=== PATIENT | male | born 1945 | race Caucasian/White ===

== ENCOUNTER 2017-10-26 10:17 | Inpatient (IN) | payer MEDICARE, BC ==
[2017-10-26] MEDS ORDERED: Sodium Chloride 0.9% 2.5 ML Syringe FLUSH PRN (10:38)
[2017-10-26] MEDS ORDERED: Sodium Chloride 0.9% 10 ML Syringe FLUSH PRN (10:38)
--- NOTE | 2017-10-26 10:38 | EDM.PDOC ---
ED HPI GENERAL MEDICAL PROBLEM - General Stated Complaint: OPEN AREAS TO FEET Time Seen by Provider: 10/26/17 10:22 Source of Information: Reports: Patient History Limitations: Reports: No Limitations - History of Present Illness INITIAL COMMENTS - FREE TEXT/NARRATIVE: History of present illness: []Patient states that he's had a 5 day history of worsening leg swelling. He is a diabetic has chronic leg lesions but states he was recently exposed to black mold and dirty water after his toilet overflowed. He also noted about 3 weeks ago that his well water tasted different so he's been drinking bottled water but has been showering with his well water and started breaking out in a rash all over his body. Review of systems: As per history of present illness and below otherwise all systems reviewed and negative. Past medical history: As per history of present illness and as reviewed below otherwise noncontributory. Surgical history: As per history of present illness and as reviewed below otherwise noncontributory. Social history: No reported history of drug or alcohol abuse. Family history: As per history of present illness and as reviewed below otherwise noncontributory. Physical exam: General: Well developed, well nourished in NAD HEENT: Atraumatic, normocephalic, pupils reactive, negative for conjunctival pallor or scleral icterus, mucous membranes moist, throat clear, neck supple, nontender, trachea midline. Lungs: Clear to auscultation, breath sounds equal bilaterally, chest nontender. Heart: S1S2, regular, negative for clicks, rubs, or JVD. Abdomen: Soft, nondistended, nontender. Negative for masses or hepatosplenomegaly. Negative for costovertebral tenderness. Pelvis: Stable nontender. Genitourinary: Deferred. Rectal: Deferred. Extremities: Chronic thickened skin with bright erythema on both calves with multiple areas of open lesions on his feet. There is 10 cm x 10 cm round blister with a large amount of serous fluid on the right anterior leg. negative for cords or calf pain. Neurovascular unremarkable. Patient has knee replacement on the right Neuro: Awake, alert, oriented. Cranial nerves II through XII unremarkable. Cerebellum unremarkable. Motor and sensory unremarkable throughout. Exam nonfocal. Diagnostics: []labs-normal Therapeutics: []iv abx Impression: []Diabetic foot ulcers, scabies Plan: []admit Definitive disposition and diagnosis as appropriate pending reevaluation and review of above. Lower Legs/Feet Pain Score (Numeric/FACES): 7 Bilateral Lower Back Pain Score (Numeric/FACES): 5 - Related Data Allergies Allergy/AdvReac Type Severity Reaction Status Date / Time Penicillins Allergy Rash Verified 10/26/17 10:35 Home Meds: Home Meds Insulin Aspart [NovoLOG] 100 unit SUBCUT BIDAC 10/26/17 [History] Insulin Glarg,Human.Rec.Analog [LantUS Solostar] 100 units SUBCUT DAILY [History] Review of Systems - Review of Systems Review Of Systems: See Below (See history of present illness) ED EXAM, GENERAL - Physical Exam Exam: See Below (See history of present illness) Course - Vital Signs Last Recorded V/S: Last Vital Signs Temp 96.5 F 10/27/17 04:00 Pulse 50 L 10/27/17 04:00 Resp 18 10/27/17 04:00 BP 129/52 L 10/27/17 04:00 Pulse Ox 92 L 10/27/17 04:00 - Orders/Labs/Meds Orders: Active Orders 24 hr Category Date Time Status Venous Doppler Lwr Ext Lt [US] Stat Exams 10/26/17 11:21 Taken Venous Doppler Lwr Ext Rt [US] Stat Exams 10/26/17 11:21 Taken CULTURE BLOOD [BC] Stat Lab 10/26/17 11:03 Results CULTURE BLOOD [BC] Stat Lab 10/26/17 11:45 Received Sodium Chloride 0.9% [Saline Flush] Med 10/26/17 10:38 Active 10 ml FLUSH ASDIRECTED PRN Sodium Chloride 0.9% [Saline Flush] Med 10/26/17 10:38 Active 2.5 ml FLUSH ASDIRECTED PRN Blood Culture x2 Reflex Set [OM.PC] Stat Oth 10/26/17 10:39 Ordered Saline Lock Insert [OM.PC] Stat Oth 10/26/17 10:39 Ordered Medication Orders Acetaminophen (Tylenol) 650 mg PO Q4H PRN PRN Reason: Pain (Mild 1-3)/fever Hydrocodone Bitart/Acetaminophen ([place] 325-5 Mg) 2 tab PO Q4H PRN PRN Reason: Pain (moderate 4-6) Last Admin: 10/27/17 03:19 Dose: 2 tab Admin: 10/26/17 21:02 Dose: 2 tab Admin: 10/26/17 15:51 Dose: 2 tab Diphenhydramine HCl (Benadryl) 25 mg IVPUSH Q6H PRN PRN Reason: Itching Last Admin: 10/27/17 03:20 Dose: 25 mg Admin: 10/26/17 18:13 Dose: 25 mg Vancomycin HCl 1,750 mg/ (Sodium Chloride) 500 mls @ 250 mls/hr IV Q12H [facility] Last Admin: 10/27/17 03:27 Dose: 250 mls/hr Infusion: 10/26/17 17:52 Dose: 250 mls/hr Admin: 10/26/17 15:52 Dose: 250 mls/hr Insulin Aspart (Novolog) 0 unit SUBCUT TIDAC [facility] PRN Reason: Protocol Last Admin: 10/26/17 16:11 Dose: Morphine Sulfate (Morphine) 2 mg IVPUSH Q2H PRN PRN Reason: Pain (severe 7-10) Last Admin: 10/27/17 00:43 Dose: 2 mg Admin: 10/26/17 18:14 Dose: 2 mg Permethrin 5% Cram (Own Med) 1 each TOP Q2D [facility] Last Admin: 10/26/17 20:48 Dose: 1 each Ivermectin 3mg Own (Med) 30,000 each PO ONETIME ONE Stop: 11/02/17 19:01 Ondansetron HCl (Zofran Odt) 4 mg PO Q4H PRN PRN Reason: nausea, able to take PO Ondansetron HCl (Zofran) 4 mg IVPUSH Q4H PRN PRN Reason: Nausea Sodium Chloride (Saline Flush) 10 ml FLUSH ASDIRECTED PRN PRN Reason: Keep Vein Open Last Admin: 10/26/17 11:59 Dose: 10 ml Sodium Chloride (Saline Flush) 2.5 ml FLUSH ASDIRECTED PRN PRN Reason: Keep Vein Open Last Admin: 10/26/17 11:59 Dose: 2.5 ml Vancomycin HCl (Pharmacy To Dose - Vancomycin) 1 dose .XX ASDIRECTED [facility] Labs: Laboratory Tests 10/26/17 10/26/17 10/26/17 Range/Units 11:03 11:03 11:03 WBC 8.39 (4.0-11.0) K/uL RBC 5.60 (4.50-5.90) M/uL Hgb 13.9 (13.0-17.0) g/dL Hct 43.8 (38.0-50.0) % MCV 78.2 L (80.0-98.0) fL MCH 24.8 L (27.0-32.0) pg MCHC 31.7 (31.0-37.0) g/dL RDW Std Deviation 52.0 (28.0-62.0) fl RDW Coeff of Lb 18 H (11.0-15.0) % Plt Count 38 L (150-400) K/uL Neut % (Auto) 61.6 (48.0-80.0) % Lymph % (Auto) 13.8 L (16.0-40.0) % Andrews % (Auto) 9.8 (0.0-15.0) % Eos % (Auto) 14.1 H (0.0-7.0) % Baso % (Auto) 0.7 (0.0-1.5) % Neut # (Auto) 5.2 (1.4-5.7) K/uL Lymph # (Auto) 1.2 (0.6-2.4) K/uL Andrews # (Auto) 0.8 (0.0-0.8) K/uL Eos # (Auto) 1.2 H (0.0-0.7) K/uL Baso # (Auto) 0.1 (0.0-0.1) K/uL Nucleated RBC % 0.0 /100WBC Nucleated RBCs # 0 K/uL Lactate 1.2 (0.20-2.00) mmol/L Sodium 141 (136-146) mmol/L Potassium 4.4 (3.5-5.1) mmol/L Chloride 107 (98-110) mmol/L Carbon Dioxide 24 (21-31) mmol/L BUN 25 H (6.0-23.0) mg/dL Creatinine 1.3 (0.6-1.5) mg/dL Est Cr Clr Drug Dosing 63.99 mL/min Estimated GFR (MDRD) 54.4 ml/min Glucose 153 H (60-110) mg/dL Hemoglobin A1c (0.0-6.0) % Calcium 9.6 (8.8-10.8) mg/dL Total Bilirubin 0.5 (0.1-1.5) mg/dL AST 22 (5-40) IU/L ALT 22 (8-54) IU/L Alkaline Phosphatase 70 (40-150) B-Natriuretic Peptide (<100) PG/ML Total Protein 7.5 (6.0-8.0) g/dL Albumin 3.9 (3.4-4.8) g/dL Globulin 3.6 H (2.0-3.5) g/dL Albumin/Globulin Ratio 1.1 L (1.3-2.8) Triglycerides (10-190) mg/dL Cholesterol (131-240) mg/dL LDL Cholesterol, Calc (60-180) mg/dL VLDL Cholesterol (5-55) mg/dL HDL Cholesterol (40-80) mg/dL Cholesterol/HDL Ratio (3.3-6.0) 10/26/17 10/26/17 10/26/17 Range/Units 11:03 11:03 11:03 WBC (4.0-11.0) K/uL RBC (4.50-5.90) M/uL Hgb (13.0-17.0) g/dL Hct (38.0-50.0) % MCV (80.0-98.0) fL MCH (27.0-32.0) pg MCHC (31.0-37.0) g/dL RDW Std Deviation (28.0-62.0) fl RDW Coeff of Lb (11.0-15.0) % Plt Count (150-400) K/uL Neut % (Auto) (48.0-80.0) % Lymph % (Auto) (16.0-40.0) % Andrews % (Auto) (0.0-15.0) % Eos % (Auto) (0.0-7.0) % Baso % (Auto) (0.0-1.5) % Neut # (Auto) (1.4-5.7) K/uL Lymph # (Auto) (0.6-2.4) K/uL Andrews # (Auto) (0.0-0.8) K/uL Eos # (Auto) (0.0-0.7) K/uL Baso # (Auto) (0.0-0.1) K/uL Nucleated RBC % /100WBC Nucleated RBCs # K/uL Lactate (0.20-2.00) mmol/L Sodium (136-146) mmol/L Potassium (3.5-5.1) mmol/L Chloride (98-110) mmol/L Carbon Dioxide (21-31) mmol/L BUN (6.0-23.0) mg/dL Creatinine (0.6-1.5) mg/dL Est Cr Clr Drug Dosing mL/min Estimated GFR (MDRD) ml/min Glucose (60-110) mg/dL Hemoglobin A1c 8.6 H (0.0-6.0) % Calcium (8.8-10.8) mg/dL Total Bilirubin (0.1-1.5) mg/dL AST (5-40) IU/L ALT (8-54) IU/L Alkaline Phosphatase (40-150) B-Natriuretic Peptide 99 (<100) PG/ML Total Protein (6.0-8.0) g/dL Albumin (3.4-4.8) g/dL Globulin (2.0-3.5) g/dL Albumin/Globulin Ratio (1.3-2.8) Triglycerides 210 H (10-190) mg/dL Cholesterol 167 (131-240) mg/dL LDL Cholesterol, Calc 95 (60-180) mg/dL VLDL Cholesterol 42 (5-55) mg/dL HDL Cholesterol 30 L (40-80) mg/dL Cholesterol/HDL Ratio 5.6 (3.3-6.0) Meds: Medications Generic Name Dose Route Start Last Admin Trade Name Freq PRN Reason Stop Dose Admin Acetaminophen 650 mg 10/26/17 14:13 Tylenol PO Q4H PRN Pain (Mild 1-3)/fever Hydrocodone Bitart/Acetaminophen 2 tab 10/26/17 14:13 10/27/17 03:19 [place] 325-5 Mg PO 2 tab Q4H PRN Administration Pain (moderate 4-6) Diphenhydramine HCl 25 mg 10/26/17 16:05 10/27/17 03:20 Benadryl IVPUSH 25 mg Q6H PRN Administration Itching Vancomycin HCl 1,750 mg/ 500 mls @ 250 mls/hr 10/26/17 16:00 10/27/17 03:27 Sodium Chloride IV 250 mls/hr Q12H [facility] Administration Insulin Aspart 0 unit 10/26/17 17:00 10/26/17 16:11 Novolog SUBCUT Not Given TIDAC [facility] Protocol Morphine Sulfate 2 mg 10/26/17 14:26 10/27/17 00:43 Morphine IVPUSH 2 mg Q2H PRN Administration Pain (severe 7-10) Permethrin 5% Cram 1 each 10/26/17 20:00 10/26/17 20:48 Own Med TOP 1 each Q2D [facility] Administration Ivermectin 3mg Own 30,000 each 11/02/17 19:00 Med PO 11/02/17 19:01 ONETIME ONE Ondansetron HCl 4 mg 10/26/17 14:13 Zofran Odt PO Q4H PRN nausea, able to take PO Ondansetron HCl 4 mg 10/26/17 14:13 Zofran IVPUSH Q4H PRN Nausea Sodium Chloride 10 ml 10/26/17 10:38 10/26/17 11:59 Saline Flush FLUSH 10 ml ASDIRECTED PRN Administration Keep Vein Open Sodium Chloride 2.5 ml 10/26/17 10:38 10/26/17 11:59 Saline Flush FLUSH 2.5 ml ASDIRECTED PRN Administration Keep Vein Open Vancomycin HCl 1 dose 10/26/17 14:15 Pharmacy To Dose - Vancomycin .XX ASDIRECTED [facility] Discontinued Medications Generic Name Dose Route Start Last Admin Trade Name Freq PRN Reason Stop Dose Admin Enoxaparin Sodium 40 mg 10/26/17 16:00 10/26/17 15:59 Lovenox SUBCUT 40 mg Q24H [facility] Administration Heparin Sodium (Porcine) 5,000 units 10/26/17 14:15 10/26/17 18:18 Heparin Sodium SUBCUT Not Given Q8H [facility] Ceftriaxone Sodium/Dextrose 1 50 mls @ 100 mls/hr 10/26/17 13:24 10/26/17 13: 35 gm/ Premix IV 10/26/17 13:53 100 mls/hr ONETIME ONE Administration Morphine Sulfate 4 mg 10/26/17 13:09 10/26/17 13:34 Morphine IVPUSH 10/26/17 13:10 4 mg ONETIME ONE Administration Morphine Sulfate 2 mg 10/26/17 14:13 Morphine IVPUSH 10/27/17 14:15 Q2H PRN Pain (severe 7-10) Ivermectin 3mg Own 30,000 each 10/26/17 19:00 Med PO ONETIME [facility] Ivermectin 3mg Own 30,000 each 10/26/17 19:00 10/26/17 20:50 Med PO 10/26/17 19:01 30,000 each ONETIME ONE Administration Ivermectin 3mg Own 30,000 each 10/26/17 19:00 Med PO 10/26/17 19:01 ONETIME ONE Ondansetron HCl 4 mg 10/26/17 13:09 10/26/17 13:34 Zofran IVPUSH 10/26/17 13:10 4 mg ONETIME ONE Administration Departure - Departure Time of Disposition: 14:25 Disposition: Admitted As Inpatient 67 Condition: Good Clinical Impression: Scabies Diabetic foot ulcers Qualifiers: Diabetic foot ulcer location: unspecified part of foot Diabetes mellitus type: other specified (including SILVINA) Laterality: unspecified laterality Non- pressure ulcer stage: unspecified non-pressure ulcer stage Qualified Code(s): E13.621 - Other specified diabetes mellitus with foot ulcer; L97.509 - Non- pressure chronic ulcer of other part of unspecified foot with unspecified severity; L97.509 - Non-pressure chronic ulcer of other part of unspecified foot with unspecified severity; L97.509 - Non-pressure chronic ulcer of other part of unspecified foot with unspecified severity; L97.509 - Non-pressure chronic ulcer of other part of unspecified foot with unspecified severity - Discharge Information - My Orders Last 24 Hours: My Active Orders 10/26/17 10:38 Sodium Chloride 0.9% [Saline Flush] 10 ml FLUSH ASDIRECTED PRN Sodium Chloride 0.9% [Saline Flush] 2.5 ml FLUSH ASDIRECTED PRN 10/26/17 10:39 Blood Culture x2 Reflex Set [OM.PC] Stat Saline Lock Insert [OM.PC] Stat 10/26/17 11:03 CULTURE BLOOD [BC] Stat 10/26/17 11:21 Venous Doppler Lwr Ext Lt [US] Stat Venous Doppler Lwr Ext Rt [US] Stat 10/26/17 11:45 CULTURE BLOOD [BC] Stat - Assessment/Plan Last 24 Hours: My Active Orders 10/26/17 10:38 Sodium Chloride 0.9% [Saline Flush] 10 ml FLUSH ASDIRECTED PRN Sodium Chloride 0.9% [Saline Flush] 2.5 ml FLUSH ASDIRECTED PRN 10/26/17 10:39 Blood Culture x2 Reflex Set [OM.PC] Stat Saline Lock Insert [OM.PC] Stat 10/26/17 11:03 CULTURE BLOOD [BC] Stat 10/26/17 11:21 Venous Doppler Lwr Ext Lt [US] Stat Venous Doppler Lwr Ext Rt [US] Stat 10/26/17 11:45 CULTURE BLOOD [BC] Stat
[2017-10-26] MEDS ORDERED: Morphine 4 MG/ML Syringe IVPUSH ONE (13:09)
[2017-10-26] MEDS ORDERED: Ondansetron 4 MG/2 ML SDV IVPUSH ONE (13:09)
[2017-10-26] MEDS ORDERED: cefTRIAXone 1 GM in Premix Bag 1 BAG IV ONE (13:24)
[2017-10-26] MEDS ORDERED: Acetaminophen 325 MG Tab PO PRN (14:13)
[2017-10-26] MEDS ORDERED: Morphine 10 MG/ML Syringe IVPUSH PRN (14:13)
[2017-10-26] MEDS ORDERED: Ondansetron 4 MG/2 ML SDV IVPUSH PRN (14:13)
[2017-10-26] MEDS ORDERED: Ondansetron 4 MG Tab.DIS PO PRN (14:13)
--- NOTE | 2017-10-26 14:13 | PCM.HP ---
H&P History of Present Illness - General Date of Service: 10/26/17 Admit Problem/Dx: Admission Diagnosis/Problem Admission Diagnosis/Problem Cellulitis - History of Present Illness Initial Comments - Free Text/Narative: 72-year-old male presenting to the emergency department with chief complaint of 5 days of worsening leg swelling and pain. Patient states that for the past approximately 5 days he's noticed increased leg swelling, redness and some pain. He is a insulin-dependent diabetic and reports chronic leg lesions. He also reports a recent exposure to black mold in dirty water after his toilet overflowed. He denies any shortness of breath, chest pain, cough, or sputum production. Reports that he had this happen one other time where his legs were swollen and became infected. States that he had to have antibiotics for 6 weeks. This was in [place]. He does see a primary care physician in [place] occasionally. Reports that his blood sugars are normally in the mid 100s to low 200s. In the emergency department, CBC, lactate, and CMP were unremarkable. Bilateral venous Dopplers were negative for DVT. Blood cultures were taken and are pending. Patient was afebrile but was hypertensive with a blood pressure 185/ 65. He believes this is due to the considerable amount of back pain that he has chronically. States that he has no history of high blood pressure, congestive heart failure, or NC. Reports that he is able to lay flat without becoming short of breath. He did have multiple ulcerations to his bilateral lower extremities. These were oozing clear fluid. He was also given 1 gm of rocephin, 4 mg morphine, and 4 mg zofran. Patient currently denies any chest pain, palpitations, shortness of breath, syncopal episodes, or focal neurologic deficits. Patient will be admitted for cellulitis. Lower Legs/Feet Pain Score (Numeric/FACES): 7 - Related Data Allergies/Adverse Reactions: Allergies Allergy/AdvReac Type Severity Reaction Status Date / Time Penicillins Allergy Rash Verified 10/26/17 10:35 Home Medications: Home Meds Insulin Aspart [NovoLOG] 100 unit SUBCUT BIDAC 10/26/17 [History] Insulin Glarg,Human.Rec.Analog [LantUS Solostar] 100 units SUBCUT DAILY [History] Past Medical History HEENT History: Reports: Impaired Vision Musculoskeletal History: Reports: Back Pain, Chronic Endocrine/Metabolic History: Reports: Diabetes, Type II - Past Surgical History Musculoskeletal Surgical History: Reports: Hip Replacement, Knee Replacement Social & Family History - Family History Family Medical History: Noncontributory - Tobacco Use Smoking Status *Q: Unknown Ever Smoked - Recreational Drug Use Recreational Drug Use: No H&P Review of Systems - Review of Systems: Review Of Systems: See Below General: Denies: Fever, Chills, Weakness, Fatigue HEENT: Denies: Headaches, Sore Throat Pulmonary: Denies: Shortness of Breath, Wheezing, Cough, Sputum Cardiovascular: Reports: Edema. Denies: Chest Pain, Palpitations Gastrointestinal: Denies: Abdominal Pain, Black Stool, Bloody Stool, Diarrhea Genitourinary: Denies: Dysuria, Hematuria Musculoskeletal: Reports: Leg Pain. Denies: Neck Pain Skin: Reports: Dryness, Pruritis, Change in Color. Denies: Cyanosis Psychiatric: Denies: Confusion Neurological: Denies: Confusion, Dizziness, Headache Exam - Exam Exam: See Below - Vital Signs Vital Signs: Last Vital Signs Temp 97.2 F 10/26/17 10:38 Pulse 84 10/26/17 10:38 Resp 20 10/26/17 10:38 BP 185/65 H 10/26/17 10:38 Pulse Ox 96 10/26/17 10:38 Weight: 168 kg - Exam Quality Assessment: DVT Prophylaxis General: Alert, Oriented, Cooperative HEENT: Conjunctiva Clear, EACs Clear, EOMI, Hearing Intact, Mucosa Moist & Gann , Nares Patent, Normal Nasal Septum, Posterior Pharynx Clear, PERRLA Neck: Supple, Trachea Midline, 2 Lungs: Clear to Auscultation, Normal Respiratory Effort Cardiovascular: Regular Rate, Regular Rhythm, Normal S1, Normal S2, Systolic Murmur GI/Abdominal Exam: Normal Bowel Sounds, Soft, Non-Tender, No Organomegaly, No Distention Back Exam: Normal Inspection, Full Range of Motion, NT Extremities: Normal Inspection, Non-Tender, No Pedal Edema, Normal Capillary Refill Peripheral Pulses: 1+: Posterior Tibial (L), Posterior Tibial (R), Dorsalis Pedis (L), Dorsalis Pedis (R), 2+: Radial (L), Radial (R) Skin: Warm, Rash, Wound, Decubitis Neurological: Cranial Nerves Intact Neuro Extensive - Mental Status: Alert, Oriented x3, Normal Mood/Affect, Normal Cognition Neuro Extensive - Motor, Sensory, Reflexes: CN II-XII Intact Psychiatric: Alert, Normal Affect, Normal Mood - Patient Data Lab Results Last 24 hrs: Laboratory Results - last 24 hr 10/26/17 10/26/17 10/26/17 Range/Units 11:03 11:03 11:03 WBC 8.39 (4.0-11.0) K/uL RBC 5.60 (4.50-5.90) M/uL Hgb 13.9 (13.0-17.0) g/dL Hct 43.8 (38.0-50.0) % MCV 78.2 L (80.0-98.0) fL MCH 24.8 L (27.0-32.0) pg MCHC 31.7 (31.0-37.0) g/dL RDW Std Deviation 52.0 (28.0-62.0) fl RDW Coeff of Lb 18 H (11.0-15.0) % Plt Count 38 L (150-400) K/uL Neut % (Auto) 61.6 (48.0-80.0) % Lymph % (Auto) 13.8 L (16.0-40.0) % [place] % (Auto) 9.8 (0.0-15.0) % Eos % (Auto) 14.1 H (0.0-7.0) % Baso % (Auto) 0.7 (0.0-1.5) % Neut # (Auto) 5.2 (1.4-5.7) K/uL Lymph # (Auto) 1.2 (0.6-2.4) K/uL [place] # (Auto) 0.8 (0.0-0.8) K/uL Eos # (Auto) 1.2 H (0.0-0.7) K/uL Baso # (Auto) 0.1 (0.0-0.1) K/uL Nucleated RBC % 0.0 /100WBC Nucleated RBCs # 0 K/uL Lactate 1.2 (0.20-2.00) mmol/L Sodium 141 (136-146) mmol/L Potassium 4.4 (3.5-5.1) mmol/L Chloride 107 (98-110) mmol/L Carbon Dioxide 24 (21-31) mmol/L BUN 25 H (6.0-23.0) mg/dL Creatinine 1.3 (0.6-1.5) mg/dL Est Cr Clr Drug Dosing 63.99 mL/min Estimated GFR (MDRD) 54.4 ml/min Glucose 153 H (60-110) mg/dL Calcium 9.6 (8.8-10.8) mg/dL Total Bilirubin 0.5 (0.1-1.5) mg/dL AST 22 (5-40) IU/L ALT 22 (8-54) IU/L Alkaline Phosphatase 70 (40-150) Total Protein 7.5 (6.0-8.0) g/dL Albumin 3.9 (3.4-4.8) g/dL Globulin 3.6 H (2.0-3.5) g/dL Albumin/Globulin Ratio 1.1 L (1.3-2.8) Result Diagrams: 10/26/17 11:03 10/26/17 11:03 Tyrese Results Last 24 hrs: Microbiology 10/26/17 11:03 Anaerobic Blood Culture - Final Blood - Venous *Q Meaningful Use (ADM) - VTE *Q VTE Criteria *Q: - Stroke *Q Stroke Criteria *Q: - AMI *Q AMI Criteria *Q: - Problem List (1) Cellulitis of both lower extremities SNOMED Code(s): 701065394 ICD Code: L03.115 - CELLULITIS OF RIGHT LOWER LIMB; L03.116 - CELLULITIS OF LEFT LOWER LIMB Status: Acute Priority: High Current Visit: Yes (2) Hypertension SNOMED Code(s): 03164822 ICD Code: I10 - ESSENTIAL (PRIMARY) HYPERTENSION Status: Acute Priority: High Current Visit: Yes Qualifiers: Hypertension type: unspecified Qualified Code(s): I10 - Essential (primary ) hypertension (3) Type II diabetes mellitus SNOMED Code(s): 11110041 ICD Code: E11.9 - TYPE 2 DIABETES MELLITUS WITHOUT COMPLICATIONS Status: Chronic Priority: Medium Current Visit: Yes Qualifiers: Diabetes mellitus complication status: with circulatory complication Diabetes mellitus complication detail: with other circulatory complications Diabetes mellitus unit support representative insulin use: with senior care use Qualified Code(s) : E11.59 - Type 2 diabetes mellitus with other circulatory complications; Z79.4 - ui ux engineer (current) use of insulin; Z79.4 - nursing home (current) use of insulin ; Z79.4 - nursing home (current) use of insulin; Z79.4 - ui ux engineer (current) use of insulin (4) Pedal edema SNOMED Code(s): 894512334 ICD Code: R60.0 - LOCALIZED EDEMA Status: Acute Priority: High Current Visit: Yes Problem List Initiated/Reviewed/Updated: Yes Orders Last 24hrs: Active Orders 24 hr Category Date Time Status Patient Status [ADT] Stat ADT 10/26/17 13:58 Active Venous Doppler Lwr Ext Lt [US] Stat Exams 10/26/17 11:21 Taken Venous Doppler Lwr Ext Rt [US] Stat Exams 10/26/17 11:21 Taken CULTURE BLOOD [BC] Stat Lab 10/26/17 11:03 Results CULTURE BLOOD [BC] Stat Lab 10/26/17 11:45 Received Sodium Chloride 0.9% [Saline Flush] Med 10/26/17 10:38 Active 10 ml FLUSH ASDIRECTED PRN Sodium Chloride 0.9% [Saline Flush] Med 10/26/17 10:38 Active 2.5 ml FLUSH ASDIRECTED PRN Blood Culture x2 Reflex Set [OM.PC] Stat Oth 10/26/17 10:39 Ordered Saline Lock Insert [OM.PC] Stat Oth 10/26/17 10:39 Ordered Medication Orders Sodium Chloride (Saline Flush) 10 ml FLUSH ASDIRECTED PRN PRN Reason: Keep Vein Open Last Admin: 10/26/17 11:59 Dose: 10 ml Sodium Chloride (Saline Flush) 2.5 ml FLUSH ASDIRECTED PRN PRN Reason: Keep Vein Open Last Admin: 10/26/17 11:59 Dose: 2.5 ml Assessment/Plan Comment:: 72 yo male admitted 10/26/16 for bilateral lower leg cullulitis with pmh of chronic venous insufficiency, type II diabetes, and pedal edema. Cellulitis: No leukocytosis in ED but bilateral lower legs moderate erythema, pain and warm to the touch. Received 1 gram rocephin in ED will treat with Vancomycin. Wound care to see patient for soft debridement. Blood cultures pending. Type II diabetes: Unclear on control. Is insulin dependent. Will get A1C and possible have diabetic ed come and talk with patient. Glucose TIDAC Insulin high sliding scale. Hypertension: 185/65 in ED but in pain at that time. I suspect he has underlying essential hypertension. Will get lipids as well. Will monitor and may start lopressor if no well controlled. Pedal Edema: Able to lay flat but may have a component of CHF. Will get BNP, ECG, and consider Echocardiogram. VTE: Heparin, SCD Dispo: 2-3 days pending. May need home health or placement for rehab. Has been living alone and not able to take care of himself adequately.
[2017-10-26] MEDS ORDERED: Heparin Sodium 5,000 Units/ML Vial SUBCUT SCH (14:15)
[2017-10-26] MEDS: Acetaminophen/HYDROcodone 325-5 MG Tab PO PRN ×2 (15:51→21:02)
[2017-10-26] MEDS ORDERED: Enoxaparin 40 MG/0.4 ML Syringe SUBCUT SCH (16:00)
[2017-10-26] MEDS: Insulin Aspart 100 Units/ML 3 ML Pen SUBCUT SCH (16:11)
--- NOTE | 2017-10-26 17:38 | PCM.SN ---
- Free Text/Narrative Note: Repeat CBC showed thrombocytopenia <40k will hold lovenox for now secondary to increase risk of bleeding will recheck again tomorrow. SCD in place. Peripheral smear is order. No associated anemia possible ITP will need to get Hep C and HIV panel to exclude. Reexamination of lesions on feet and arms highly suspicious of [place]we[place] scabies will treat with permethrin topical and Ivermectin. Contact precautions have been in place.
[2017-10-26] MEDS: diphenhydrAMINE 50 MG/ML SDV IVPUSH PRN (18:13)
[2017-10-26] MEDS: Morphine 2 MG/ML Syringe IVPUSH PRN (18:14)
[2017-10-26] MEDS ORDERED: IVERMECTIN 3 MG PO ONE ×2 (19:00)
[2017-10-26] MEDS ORDERED: IVERMECTIN 3 MG PO SCH (19:00)
[2017-10-26] MEDS: PERMETHRIN 5% TOP SCH (20:48)
[2017-10-27] MEDS: Morphine 2 MG/ML Syringe IVPUSH PRN ×4 (00:43→22:58)
[2017-10-27] MEDS: Acetaminophen/HYDROcodone 325-5 MG Tab PO PRN ×4 (03:19→22:33)
[2017-10-27] MEDS: diphenhydrAMINE 50 MG/ML SDV IVPUSH PRN ×4 (03:20→22:55)
[2017-10-27] MEDS: Insulin Aspart 100 Units/ML 3 ML Pen SUBCUT SCH ×3 (07:05→16:52)
--- NOTE | 2017-10-27 08:10 | PCM.PN ---
- General Info Date of Service: 10/27/17 Admission Dx/Problem (Free Text): Admission Diagnosis/Problem Admission Diagnosis/Problem Cellulitis Subjective Update: Patient feeling constipated this morning. Having some chronic back pain but controlled with oral and IV medications. No chest pain, sob, palpitations, syncope, nausea or vomiting. - Review of Systems General: Denies: Fever, Weakness, Fatigue HEENT: Denies: Headaches, Visual Changes Pulmonary: Denies: Shortness of Breath, Hemoptysis Cardiovascular: Denies: Chest Pain, Edema Gastrointestinal: Denies: Abdominal Pain, Melena, Nausea, Vomiting Genitourinary: Denies: Dysuria, Hematuria Musculoskeletal: Reports: Back Pain. Denies: Neck Pain, Leg Pain Skin: Reports: Dryness, Pruritis, Rash. Denies: Cyanosis Neurological: Denies: Confusion, Dizziness Psychiatric: Denies: Confusion - Patient Data Vitals - Most Recent: Last Vital Signs Temp 96.5 F 10/27/17 04:00 Pulse 50 L 10/27/17 04:00 Resp 18 10/27/17 04:00 BP 129/52 L 10/27/17 04:00 Pulse Ox 92 L 10/27/17 04:00 Weight - Most Recent: 168.464 kg I&O - Last 24 Hours: Intake & Output 10/26/17 10/27/17 10/27/17 22:59 06:59 14:59 Intake Total 1100 600 Output Total 0 550 Balance 1100 50 Lab Results Last 24 Hours: Laboratory Results - last 24 hr 10/26/17 10/26/17 10/26/17 Range/Units 16:11 16:16 16:19 WBC 8.59 (4.0-11.0) K/uL RBC 5.75 (4.50-5.90) M/uL Hgb 14.0 (13.0-17.0) g/dL Hct 45.2 (38.0-50.0) % MCV 78.6 L (80.0-98.0) fL MCH 24.3 L (27.0-32.0) pg MCHC 31.0 (31.0-37.0) g/dL RDW Std Deviation 52.7 (28.0-62.0) fl RDW Coeff of Lb 19 H (11.0-15.0) % Plt Count 36 L (150-400) K/uL Add Manual Diff YES Neutrophils % (Manual) 64 (48.0-80.0) % Band Neutrophils % 2 % Lymphocytes % (Manual) 16 (16.0-40.0) % Monocytes % (Manual) 4 (0.0-15.0) % Eosinophils % (Manual) 12 H (0.0-7.0) % Basophils % (Manual) 2 H (0.0-1.5) % Nucleated RBC % 0.0 /100WBC Absolute Seg Neuts 5.5 (1.4-5.7) Band Neutrophils # 0.2 Lymphocytes # (Manual) 1.4 (0.6-2.4) Monocytes # (Manual) 0.3 (0.0-0.8) Eosinophils # (Manual) 1.0 H (0.0-0.7) Basophils # (Manual) 0.2 H (0.0-0.1) Nucleated RBCs # 0 K/uL Plt Morphology Comment Smear Path Review SENT TO PATHOLOGY Sodium (136-146) mmol/L Potassium (3.5-5.1) mmol/L Chloride (98-110) mmol/L Carbon Dioxide (21-31) mmol/L BUN (6.0-23.0) mg/dL Creatinine (0.6-1.5) mg/dL Est Cr Clr Drug Dosing mL/min Estimated GFR (MDRD) ml/min Glucose (60-110) mg/dL POC Glucose 121 H (60-110) mg/dL Calcium (8.8-10.8) mg/dL Phosphorus (2.4-4.7) mg/dL Magnesium (1.5-2.3) mEq/L 10/27/17 10/27/17 Range/Units 04:15 04:15 WBC 7.16 (4.0-11.0) K/uL RBC 5.17 (4.50-5.90) M/uL Hgb 12.5 L (13.0-17.0) g/dL Hct 41.5 (38.0-50.0) % MCV 80.3 (80.0-98.0) fL MCH 24.2 L (27.0-32.0) pg MCHC 30.1 L (31.0-37.0) g/dL RDW Std Deviation 53.9 (28.0-62.0) fl RDW Coeff of Lb 18 H (11.0-15.0) % Plt Count 23 L (150-400) K/uL Add Manual Diff YES Neutrophils % (Manual) 49 (48.0-80.0) % Band Neutrophils % % Lymphocytes % (Manual) 29 (16.0-40.0) % Monocytes % (Manual) 5 (0.0-15.0) % Eosinophils % (Manual) 16 H (0.0-7.0) % Basophils % (Manual) 1 (0.0-1.5) % Nucleated RBC % 0.0 /100WBC Absolute Seg Neuts 3.5 (1.4-5.7) Band Neutrophils # 2.1 Lymphocytes # (Manual) 2.1 (0.6-2.4) Monocytes # (Manual) 0.4 (0.0-0.8) Eosinophils # (Manual) 1.1 H (0.0-0.7) Basophils # (Manual) 0.1 (0.0-0.1) Nucleated RBCs # 0 K/uL Plt Morphology Comment Smear Path Review Sodium 140 (136-146) mmol/L Potassium 4.9 (3.5-5.1) mmol/L Chloride 108 (98-110) mmol/L Carbon Dioxide 23 (21-31) mmol/L BUN 26 H (6.0-23.0) mg/dL Creatinine 1.4 (0.6-1.5) mg/dL Est Cr Clr Drug Dosing 60.99 mL/min Estimated GFR (MDRD) 50.0 ml/min Glucose 107 (60-110) mg/dL POC Glucose (60-110) mg/dL Calcium 8.3 L (8.8-10.8) mg/dL Phosphorus 4.4 (2.4-4.7) mg/dL Magnesium 1.5 (1.5-2.3) mEq/L Med Orders - Current: Current Medications Acetaminophen (Tylenol) 650 mg PO Q4H PRN PRN Reason: Pain (Mild 1-3)/fever Hydrocodone Bitart/Acetaminophen ([place] 325-5 Mg) 2 tab PO Q4H PRN PRN Reason: Pain (moderate 4-6) Last Admin: 10/27/17 03:19 Dose: 2 tab Diphenhydramine HCl (Benadryl) 25 mg IVPUSH Q6H PRN PRN Reason: Itching Last Admin: 10/27/17 03:20 Dose: 25 mg Vancomycin HCl 1,750 mg/ (Sodium Chloride) 500 mls @ 250 mls/hr IV Q12H [facility] Last Admin: 10/27/17 03:27 Dose: 250 mls/hr Insulin Aspart (Novolog) 0 unit SUBCUT TIDAC ESSENCE PRN Reason: Protocol Last Admin: 10/27/17 07:05 Dose: Not Given Morphine Sulfate (Morphine) 2 mg IVPUSH Q2H PRN PRN Reason: Pain (severe 7-10) Last Admin: 10/27/17 00:43 Dose: 2 mg Permethrin 5% Cram (Own Med) 1 each TOP Q2D [facility] Last Admin: 10/26/17 20:48 Dose: 1 each Ivermectin 3mg Own (Med) 30,000 each PO ONETIME ONE Stop: 11/02/17 19:01 Ondansetron HCl (Zofran Odt) 4 mg PO Q4H PRN PRN Reason: nausea, able to take PO Ondansetron HCl (Zofran) 4 mg IVPUSH Q4H PRN PRN Reason: Nausea Sodium Chloride (Saline Flush) 10 ml FLUSH ASDIRECTED PRN PRN Reason: Keep Vein Open Last Admin: 10/26/17 11:59 Dose: 10 ml Sodium Chloride (Saline Flush) 2.5 ml FLUSH ASDIRECTED PRN PRN Reason: Keep Vein Open Last Admin: 10/26/17 11:59 Dose: 2.5 ml Vancomycin HCl (Pharmacy To Dose - Vancomycin) 1 dose .XX ASDIRECTED [facility] Discontinued Medications Enoxaparin Sodium (Lovenox) 40 mg SUBCUT Q24H [facility] Last Admin: 10/26/17 15:59 Dose: 40 mg Heparin Sodium (Porcine) (Heparin Sodium) 5,000 units SUBCUT Q8H [facility] Last Admin: 10/26/17 18:18 Dose: Not Given Ceftriaxone Sodium/Dextrose 1 (gm/ Premix) 50 mls @ 100 mls/hr IV ONETIME ONE Stop: 10/26/17 13:53 Last Admin: 10/26/17 13:35 Dose: 100 mls/hr Morphine Sulfate (Morphine) 4 mg IVPUSH ONETIME ONE Stop: 10/26/17 13:10 Last Admin: 10/26/17 13:34 Dose: 4 mg Morphine Sulfate (Morphine) 2 mg IVPUSH Q2H PRN PRN Reason: Pain (severe 7-10) Stop: 10/27/17 14:15 Ivermectin 3mg Own (Med) 30,000 each PO ONETIME ESSENCE Ivermectin 3mg Own (Med) 30,000 each PO ONETIME ONE Stop: 10/26/17 19:01 Last Admin: 10/26/17 20:50 Dose: 30,000 each Ivermectin 3mg Own (Med) 30,000 each PO ONETIME ONE Stop: 10/26/17 19:01 Last Admin: 10/27/17 07:22 Dose: Not Given Ondansetron HCl (Zofran) 4 mg IVPUSH ONETIME ONE Stop: 10/26/17 13:10 Last Admin: 10/26/17 13:34 Dose: 4 mg - Exam Quality Assessment: DVT Prophylaxis General: Alert, Oriented, Cooperative, No Acute Distress HEENT: Pupils Equal, Pupils Reactive, EOMI, Mucous Membr. Moist/[place] Neck: Supple, Trachea Midline Lungs: Clear to Auscultation, Normal Respiratory Effort Cardiovascular: Regular Rate, Regular Rhythm, Murmurs GI/Abdominal Exam: Normal Bowel Sounds, Soft, Non-Tender, No Organomegaly, No Distention Back Exam: Normal Inspection Extremities: Normal Inspection, Non-Tender, Normal Capillary Refill, Pedal Edema , Redness, Other (petichial rash on legs, arms and torso. Hyperkeratosis to top of feet bilaterally) Peripheral Pulses: 2+: Radial (L), Radial (R), Posterior Tibial (L), Posterior Tibial (R), Dorsalis Pedis (L), Dorsalis Pedis (R) Skin: Warm, Dry, Intact Wound/Incisions: Healing Well, Erythema Neurological: No New Focal Deficit Psy/Mental Status: Alert, Normal Affect, Normal Mood - Problem List & Annotations (1) Cellulitis of both lower extremities SNOMED Code(s): 971714612 Code(s): L03.115 - CELLULITIS OF RIGHT LOWER LIMB; L03.116 - CELLULITIS OF LEFT LOWER LIMB Status: Acute Priority: High Current Visit: Yes (2) Hypertension SNOMED Code(s): 13050216 Code(s): I10 - ESSENTIAL (PRIMARY) HYPERTENSION Status: Acute Priority: Medium Current Visit: Yes Qualifiers: Hypertension type: unspecified Qualified Code(s): I10 - Essential (primary ) hypertension (3) Type II diabetes mellitus SNOMED Code(s): 31200457 Code(s): E11.9 - TYPE 2 DIABETES MELLITUS WITHOUT COMPLICATIONS Status: Chronic Priority: Medium Current Visit: Yes Qualifiers: Diabetes mellitus complication status: with circulatory complication Diabetes mellitus complication detail: with other circulatory complications Diabetes mellitus long-term insulin use: with long term care social worker use Qualified Code(s) : E11.59 - Type 2 diabetes mellitus with other circulatory complications; Z79.4 - custodial (current) use of insulin; Z79.4 - custodial (current) use of insulin ; Z79.4 - local company intermodal truck driver (current) use of insulin; Z79.4 - custodial (current) use of insulin (4) Pedal edema SNOMED Code(s): 012607359 Code(s): R60.0 - LOCALIZED EDEMA Status: Acute Priority: High Current Visit: Yes (5) Thrombocytopenia SNOMED Code(s): 933782019 Code(s): D69.6 - THROMBOCYTOPENIA, UNSPECIFIED Status: Chronic Priority: High Current Visit: Yes (6) Scabies SNOMED Code(s): 069274008 Code(s): B86 - SCABIES Status: Acute Priority: High Current Visit: Yes - Problem List Review Problem List Initiated/Reviewed/Updated: Yes - My Orders Last 24 Hours: My Active Orders 10/26/17 14:13 Patient Status [ADT] Routine Blood Glucose Check, Bedside [RC] TIDAC EKG Documentation Completion [RC] STAT Height and Weight [RC] DAILY Oxygen Therapy [RC] PRN Up With Assistance [RC] ASDIRECTED Vital Signs [RC] Q4H Acetaminophen [Tylenol] 650 mg PO Q4H PRN Acetaminophen/HYDROcodone [[place] 325-5 MG] 2 tab PO Q4H PRN Ondansetron [Zofran ODT] 4 mg PO Q4H PRN Ondansetron [Zofran] 4 mg IVPUSH Q4H PRN Resuscitation Status Routine 10/26/17 14:14 Intake and Output [RC] QSHIFT Sequential Compression Device [OM.PC] Per Unit Routine 10/26/17 14:15 Antiembolic Devices [RC] PER UNIT ROUTINE Vancomycin Pharmacy to Dose [Pharmacy to Dose - Vancomycin] 1 dose .XX ASDIRECTED 10/26/17 14:26 Morphine 2 mg IVPUSH Q2H PRN 10/26/17 14:37 Consult to Physical Therapy [PT Evaluation and Treatment] [CONS] Routine 10/26/17 16:00 Vancomycin 1,750 mg Sodium Chloride 0.9% [Normal Saline] 500 ml IV Q12H 10/26/17 16:05 diphenhydrAMINE [Benadryl] 25 mg IVPUSH Q6H PRN 10/26/17 17:00 Insulin Aspart [NovoLOG] See Protocol SUBCUT TIDAC 10/26/17 20:00 Non-Formulary Medication [NF Drug] 1 each TOP Q2D 10/26/17 Dinner [employer] Diet [DIET] 10/28/17 05:11 BASIC METABOLIC PANEL,BMP [CHEM] AM CBC WITH AUTO DIFF [HEME] AM 10/29/17 05:11 BASIC METABOLIC PANEL,BMP [CHEM] AM CBC WITH AUTO DIFF [HEME] AM 10/30/17 05:11 BASIC METABOLIC PANEL,BMP [CHEM] AM CBC WITH AUTO DIFF [HEME] AM 11/02/17 19:00 Non-Formulary Medication [NF Drug] 30,000 each PO ONETIME ONE - Plan Plan:: 72 yo male admitted 10/26/16 for bilateral lower leg cullulitis with pmh of chronic venous insufficiency, type II diabetes, and pedal edema. Cellulitis: Afebrile, no leukocytosis, contin. Vanc day 2, Erythema, pain and warm to the touch. Wound care to see patient for soft debridement. Blood cultures pending. Type II diabetes: Poor control A1C 8.6. Consult diabetic ed come and talk with patient tomorrow. Glucose TIDAC Insulin high sliding scale. Hypertension: Only elevated with pain. Lipids total chol: 167, LDL 95, HDL 30 , Trigyc 210. ASCVD 38% Will start high intensity statin when more stabilized in addition to lifestyle modifications. Will monitor . Pedal Edema: BNP and ECG unremarkable. Does have systolic murmur grade 3 with history of rheumatic heart disease. Will get echo and consider lasix. Will order Echocardiogram for further evaluation Thrombocytopenia: <30k Patient states he has a history of this. Has been worked up for malignancy in the past. Did require transfusion several years ago. No history of bleeding and currently stable. Peripheral smear is pending. Will consider steroids and possible transfusion if worsens and bleeding starts. Monitor closely. Hold pharm VTE proph. Scabies: Started treatment with Ivermectin and permethrin secondary to widespread involvement yesterday. Benadryl for pruritus. Contact precautions. VTE: SCD Dispo: 2-3 days pending. May need home health or placement for rehab. Has been living alone and not able to take care of himself adequately.
[2017-10-27] MEDS ORDERED: Calcium Carbonate 500 MG Tab.Chew PO ONE (08:43)
[2017-10-27] MEDS: Polyethylene Glycol 3350 Powder 17 GM Packet PO SCH ×2 (11:36→22:28)
[2017-10-27] MEDS ORDERED: IVERMECTIN 3 MG PO ONE ×2 (19:00)
[2017-10-27] MEDS ORDERED: Lidocaine 2% 5 ML SDV ONE (21:21)
--- NOTE | 2017-10-27 22:26 | PCM.SN ---
- Free Text/Narrative Note: asked to start IV line after multiple attempts. After three attempts myself, with ultrasound view #20 IV 1.8 inch started with !% lidocaine SQ, right Forearm. Pt tolerated well
[2017-10-28] MEDS: Morphine 2 MG/ML Syringe IVPUSH PRN ×5 (01:19→21:15)
[2017-10-28] MEDS: Acetaminophen/HYDROcodone 325-5 MG Tab PO PRN ×3 (04:43→15:18)
[2017-10-28] MEDS: diphenhydrAMINE 50 MG/ML SDV IVPUSH PRN ×3 (04:45→18:35)
[2017-10-28] MEDS: Insulin Aspart 100 Units/ML 3 ML Pen SUBCUT SCH ×3 (06:57→16:53)
[2017-10-28] MEDS ORDERED: Calcium Carbonate 500 MG Tab.Chew PO ONE (08:33)
[2017-10-28] MEDS ORDERED: Furosemide 40 MG/4 ML VIAL IVPUSH ONE (08:34)
[2017-10-28] MEDS: Polyethylene Glycol 3350 Powder 17 GM Packet PO SCH ×2 (09:25→20:42)
[2017-10-28] MEDS: Dexamethasone 4 MG Tab PO SCH (09:25)
[2017-10-28 09:46] LABS: HIV12 AG/AB 4TH GEN W/REFLEX 0.1 (<1.0)
--- NOTE | 2017-10-28 10:13 | US ---
EXAM DATE: 10/26/17 PATIENT'S AGE: 72 Patient: GAL KING Facility: [facility], [place], [place] Site . Site : 1945 Study: US Extremity Left [id number]/6/2018 12:39:21 PM Ordering Physician: Clif Ingram Final Report: HISTORY: Bilateral leg swelling. TECHNIQUE: Deep venous systems of bilateral lower extremities were examined using grayscale , color and Doppler techniques. Compression was assessed were able to be assessed. FINDINGS: Left leg: The left common femoral, femoral and posterior tibial veins are patent without thrombus. Left popliteal vein is not optimally seen but appears grossly patent. Soft tissue edema is present. - Right leg: The common femoral, femoral and posterior tibial veins are patent. The popliteal vein is not well seen, likely secondary to edema. IMPRESSION: 1. Areas of soft tissue edema. 2. Less than optimal visualization of the popliteal veins bilaterally likely related to soft tissue edema. 3. No definite deep venous thrombosis within either lower extremity. Dictated by Tim Weathers MD @ 10/26/2017 12:57:51 PM Dictated by: Tim Weathers MD @ 10/26/2017 12:57:57 (Electronic Signature) Report Signed by Proxy. ABRAM
--- NOTE | 2017-10-28 10:14 | US ---
EXAM DATE: 10/26/17 PATIENT'S AGE: 72 Patient: GAL KING Facility: [facility], [place], [place] Site . Site : 1945 Study: US Extremity Right [id number]/6/2018 12:40:01 PM Ordering Physician: Clif Ingram Final Report: HISTORY: Bilateral leg swelling. TECHNIQUE: Deep venous systems of bilateral lower extremities were examined using grayscale , color and Doppler techniques. Compression was assessed were able to be assessed. FINDINGS: Left leg: The left common femoral, femoral and posterior tibial veins are patent without thrombus. Left popliteal vein is not optimally seen but appears grossly patent. Soft tissue edema is present. - Right leg: The common femoral, femoral and posterior tibial veins are patent. The popliteal vein is not well seen, likely secondary to edema. IMPRESSION: 1. Areas of soft tissue edema. 2. Less than optimal visualization of the popliteal veins bilaterally likely related to soft tissue edema. 3. No definite deep venous thrombosis within either lower extremity. Dictated by Tim Weathers MD @ 10/26/2017 12:57:51 PM Dictated by: Tim Weathers MD @ 10/26/2017 12:58:09 (Electronic Signature) Report Signed by Proxy. ABRAM
--- NOTE | 2017-10-28 11:42 | PCM.PN ---
- General Info Date of Service: 10/28/17 Admission Dx/Problem (Free Text): Admission Diagnosis/Problem Admission Diagnosis/Problem Cellulitis Subjective Update: Having some more itching. Benadryl is helping some would like something extra. Would like to soak his feet. PT to see patient this morning. Having some back pain but no more than usual. No nausea, vomiting, diarrhea, fever, chest pain, sob. Functional Status: Reports: Pain Controlled - Review of Systems General: Denies: Fever, Weakness, Fatigue HEENT: Denies: Headaches, Visual Changes Pulmonary: Denies: Shortness of Breath, Hemoptysis Cardiovascular: Reports: Edema. Denies: Chest Pain Gastrointestinal: Reports: Nausea. Denies: Abdominal Pain, Vomiting Genitourinary: Denies: Dysuria, Hematuria Musculoskeletal: Reports: Leg Pain. Denies: Neck Pain Skin: Denies: Cyanosis Neurological: Denies: Confusion, Dizziness, Headache Psychiatric: Denies: Confusion - Patient Data Vitals - Most Recent: Last Vital Signs Temp 96.9 F 10/28/17 08:00 Pulse 76 10/28/17 08:00 Resp 18 10/28/17 08:00 BP 133/77 10/28/17 08:00 Pulse Ox 93 L 10/28/17 08:34 Weight - Most Recent: 165.108 kg I&O - Last 24 Hours: Intake & Output 10/27/17 10/28/17 10/28/17 22:59 06:59 14:59 Intake Total 1890 750 Output Total 675 Balance 1215 750 Lab Results Last 24 Hours: Laboratory Results - last 24 hr 10/27/17 10/27/17 10/28/17 Range/Units 11:41 16:51 04:24 WBC 8.54 (4.0-11.0) K/uL RBC 4.96 (4.50-5.90) M/uL Hgb 12.3 L (13.0-17.0) g/dL Hct 39.6 (38.0-50.0) % MCV 79.8 L (80.0-98.0) fL MCH 24.8 L (27.0-32.0) pg MCHC 31.1 (31.0-37.0) g/dL RDW Std Deviation 52.1 (28.0-62.0) fl RDW Coeff of Lb 18 H (11.0-15.0) % Plt Count 23 L (150-400) K/uL Add Manual Diff YES Neutrophils % (Manual) 56 (48.0-80.0) % Band Neutrophils % 2 % Lymphocytes % (Manual) 17 (16.0-40.0) % Monocytes % (Manual) 8 (0.0-15.0) % Eosinophils % (Manual) 16 H (0.0-7.0) % Basophils % (Manual) 1 (0.0-1.5) % Nucleated RBC % 0.0 /100WBC Absolute Seg Neuts 4.8 (1.4-5.7) Band Neutrophils # 0.2 Lymphocytes # (Manual) 1.5 (0.6-2.4) Monocytes # (Manual) 0.7 (0.0-0.8) Eosinophils # (Manual) 1.4 H (0.0-0.7) Basophils # (Manual) 0.1 (0.0-0.1) Nucleated RBCs # 0 K/uL Sodium (136-146) mmol/L Potassium (3.5-5.1) mmol/L Chloride (98-110) mmol/L Carbon Dioxide (21-31) mmol/L BUN (6.0-23.0) mg/dL Creatinine (0.6-1.5) mg/dL Est Cr Clr Drug Dosing mL/min Estimated GFR (MDRD) ml/min Glucose (60-110) mg/dL POC Glucose 191 H 193 H (60-110) mg/dL Calcium (8.8-10.8) mg/dL Vitamin B12 (200-1100) PG/ML Folate (7.2-15.4) ng/mL TSH 3rd Generation (0.47-5.0) uIU/mL HIV 1&2 Ag/Ab, 4th Gen (<1.0) 10/28/17 10/28/17 10/28/17 Range/Units 04:24 04:24 06:44 WBC (4.0-11.0) K/uL RBC (4.50-5.90) M/uL Hgb (13.0-17.0) g/dL Hct (38.0-50.0) % MCV (80.0-98.0) fL MCH (27.0-32.0) pg MCHC (31.0-37.0) g/dL RDW Std Deviation (28.0-62.0) fl RDW Coeff of Lb (11.0-15.0) % Plt Count (150-400) K/uL Add Manual Diff Neutrophils % (Manual) (48.0-80.0) % Band Neutrophils % % Lymphocytes % (Manual) (16.0-40.0) % Monocytes % (Manual) (0.0-15.0) % Eosinophils % (Manual) (0.0-7.0) % Basophils % (Manual) (0.0-1.5) % Nucleated RBC % /100WBC Absolute Seg Neuts (1.4-5.7) Band Neutrophils # Lymphocytes # (Manual) (0.6-2.4) Monocytes # (Manual) (0.0-0.8) Eosinophils # (Manual) (0.0-0.7) Basophils # (Manual) (0.0-0.1) Nucleated RBCs # K/uL Sodium 135 L (136-146) mmol/L Potassium 5.0 (3.5-5.1) mmol/L Chloride 103 (98-110) mmol/L Carbon Dioxide 23 (21-31) mmol/L BUN 28 H (6.0-23.0) mg/dL Creatinine 1.6 H (0.6-1.5) mg/dL Est Cr Clr Drug Dosing 53.37 mL/min Estimated GFR (MDRD) 42.8 ml/min Glucose 249 H (60-110) mg/dL POC Glucose 217 H (60-110) mg/dL Calcium 8.1 L (8.8-10.8) mg/dL Vitamin B12 498 (200-1100) PG/ML Folate 2.9 L (7.2-15.4) ng/mL TSH 3rd Generation 19.00 H (0.47-5.0) uIU/mL HIV 1&2 Ag/Ab, 4th Gen 0.1 (<1.0) Med Orders - Current: Current Medications Acetaminophen (Tylenol) 650 mg PO Q4H PRN PRN Reason: Pain (Mild 1-3)/fever Last Admin: 10/27/17 11:36 Dose: 650 mg Hydrocodone Bitart/Acetaminophen ([place] 325-5 Mg) 2 tab PO Q4H PRN PRN Reason: Pain (moderate 4-6) Last Admin: 10/28/17 09:26 Dose: 2 tab Dexamethasone (Dexamethasone) 40 mg PO DAILY REPLACED BY [facility] Last Admin: 10/28/17 09:25 Dose: 40 mg Diphenhydramine HCl (Benadryl) 25 mg IVPUSH Q6H PRN PRN Reason: Itching Last Admin: 10/28/17 04:45 Dose: 25 mg Vancomycin HCl 1,750 mg/ (Sodium Chloride) 500 mls @ 250 mls/hr IV Q12H REPLACED BY [facility] Last Admin: 10/28/17 01:07 Dose: Not Given Insulin Aspart (Novolog) 0 unit SUBCUT TIDAC REPLACED BY [facility] PRN Reason: Protocol Last Admin: 10/28/17 06:57 Dose: 6 units Morphine Sulfate (Morphine) 2 mg IVPUSH Q2H PRN PRN Reason: Pain (severe 7-10) Last Admin: 10/28/17 06:45 Dose: 2 mg Permethrin 5% Cram (Own Med) 1 each TOP Q2D REPLACED BY [facility] Last Admin: 10/26/17 20:48 Dose: 1 each Ondansetron HCl (Zofran Odt) 4 mg PO Q4H PRN PRN Reason: nausea, able to take PO Ondansetron HCl (Zofran) 4 mg IVPUSH Q4H PRN PRN Reason: Nausea Polyethylene Glycol (Miralax) 17 gm PO BID REPLACED BY [facility] Last Admin: 10/28/17 09:25 Dose: 17 gm Senna/Docusate Sodium (Senna Plus) 1 tab PO DAILY PRN PRN Reason: Constipation Last Admin: 10/28/17 09:27 Dose: 1 tab Sodium Chloride (Saline Flush) 10 ml FLUSH ASDIRECTED PRN PRN Reason: Keep Vein Open Last Admin: 10/26/17 11:59 Dose: 10 ml Sodium Chloride (Saline Flush) 2.5 ml FLUSH ASDIRECTED PRN PRN Reason: Keep Vein Open Last Admin: 10/26/17 11:59 Dose: 2.5 ml Vancomycin HCl (Pharmacy To Dose - Vancomycin) 1 dose .XX ASDIRECTED REPLACED BY [facility] Discontinued Medications Calcium Carbonate/Glycine (Tums) 1,000 mg PO ONETIME ONE Stop: 10/27/17 08:44 Last Admin: 10/27/17 09:51 Dose: 1,000 mg Calcium Carbonate/Glycine (Tums) 1,000 mg PO ONETIME ONE Stop: 10/28/17 08:34 Last Admin: 10/28/17 09:25 Dose: 1,000 mg Enoxaparin Sodium (Lovenox) 40 mg SUBCUT Q24H REPLACED BY [facility] Last Admin: 10/26/17 15:59 Dose: 40 mg Furosemide (Lasix) 40 mg IVPUSH NOW ONE Stop: 10/28/17 08:35 Last Admin: 10/28/17 09:25 Dose: 40 mg Heparin Sodium (Porcine) (Heparin Sodium) 5,000 units SUBCUT Q8H REPLACED BY [facility] Last Admin: 10/26/17 18:18 Dose: Not Given Ceftriaxone Sodium/Dextrose 1 (gm/ Premix) 50 mls @ 100 mls/hr IV ONETIME ONE Stop: 10/26/17 13:53 Last Admin: 10/26/17 13:35 Dose: 100 mls/hr Vancomycin HCl 1,750 mg/ (Sodium Chloride) 500 mls @ 250 mls/hr IV Q12H REPLACED BY [facility] Last Admin: 10/27/17 16:42 Dose: 250 mls/hr Lidocaine (Xylocaine-Mpf 2%) Confirm Administered Dose 5 ml .ROUTE .STK-MED ONE Stop: 10/27/17 21:22 Last Admin: 10/27/17 22:30 Dose: Not Given Morphine Sulfate (Morphine) 4 mg IVPUSH ONETIME ONE Stop: 10/26/17 13:10 Last Admin: 10/26/17 13:34 Dose: 4 mg Morphine Sulfate (Morphine) 2 mg IVPUSH Q2H PRN PRN Reason: Pain (severe 7-10) Stop: 10/27/17 14:15 Ivermectin 3mg Own (Med) 30,000 each PO ONETIME REPLACED BY [facility] Ivermectin 3mg Own (Med) 30,000 each PO ONETIME ONE Stop: 10/26/17 19:01 Last Admin: 10/26/17 20:50 Dose: 30,000 each Ivermectin 3mg Own (Med) 8 each PO ONETIME ONE Stop: 10/27/17 19:01 Last Admin: 10/27/17 19:36 Dose: Not Given Ivermectin 3mg Own (Med) 30,000 each PO ONETIME ONE Stop: 10/26/17 19:01 Last Admin: 10/27/17 07:22 Dose: Not Given Ivermectin 3 Mg 10 each PO ONETIME ONE Stop: 10/27/17 19:01 Last Admin: 10/27/17 19:27 Dose: 10 each Ondansetron HCl (Zofran) 4 mg IVPUSH ONETIME ONE Stop: 10/26/17 13:10 Last Admin: 10/26/17 13:34 Dose: 4 mg - Exam Quality Assessment: DVT Prophylaxis General: Alert, Oriented, Cooperative, No Acute Distress HEENT: Pupils Equal, Pupils Reactive, EOMI, Mucous Membr. Moist/[place] Neck: Supple, Trachea Midline Lungs: Clear to Auscultation, Normal Respiratory Effort Cardiovascular: Regular Rate, Regular Rhythm, Murmurs GI/Abdominal Exam: Normal Bowel Sounds, Soft, Non-Tender, No Organomegaly, Pelvis Stable Back Exam: Normal Inspection Extremities: Normal Inspection, Non-Tender, Normal Capillary Refill, Pedal Edema , Leg Pain, Redness Peripheral Pulses: 2+: Radial (L), Radial (R), Posterior Tibial (L), Posterior Tibial (R), Dorsalis Pedis (L), Dorsalis Pedis (R) Skin: Warm, Dry, Rash Wound/Incisions: Healing Well Neurological: No New Focal Deficit Psy/Mental Status: Alert, Normal Affect, Normal Mood - Problem List & Annotations (1) Cellulitis of both lower extremities SNOMED Code(s): 681007388 Code(s): L03.115 - CELLULITIS OF RIGHT LOWER LIMB; L03.116 - CELLULITIS OF LEFT LOWER LIMB Status: Acute Priority: High Current Visit: Yes (2) Hypertension SNOMED Code(s): 26891048 Code(s): I10 - ESSENTIAL (PRIMARY) HYPERTENSION Status: Acute Priority: Medium Current Visit: Yes Qualifiers: Hypertension type: unspecified Qualified Code(s): I10 - Essential (primary ) hypertension (3) Type II diabetes mellitus SNOMED Code(s): 03492630 Code(s): E11.9 - TYPE 2 DIABETES MELLITUS WITHOUT COMPLICATIONS Status: Chronic Priority: Medium Current Visit: Yes Qualifiers: Diabetes mellitus complication status: with circulatory complication Diabetes mellitus complication detail: with other circulatory complications Diabetes mellitus local company intermodal truck driver insulin use: with local company intermodal truck driver use Qualified Code(s) : E11.59 - Type 2 diabetes mellitus with other circulatory complications; Z79.4 - local company intermodal truck driver (current) use of insulin; Z79.4 - local company intermodal truck driver (current) use of insulin ; Z79.4 - long-term (current) use of insulin; Z79.4 - long-term (current) use of insulin (4) Pedal edema SNOMED Code(s): 687250629 Code(s): R60.0 - LOCALIZED EDEMA Status: Acute Priority: High Current Visit: Yes (5) Thrombocytopenia SNOMED Code(s): 083945809 Code(s): D69.6 - THROMBOCYTOPENIA, UNSPECIFIED Status: Chronic Priority: High Current Visit: Yes (6) Scabies SNOMED Code(s): 763347302 Code(s): B86 - SCABIES Status: Acute Priority: High Current Visit: Yes - Problem List Review Problem List Initiated/Reviewed/Updated: Yes - My Orders Last 24 Hours: My Active Orders 10/27/17 10:49 Docusate Sodium/Sennosides [Senna Plus] 1 tab PO DAILY PRN 10/27/17 11:00 Polyethylene Glycol 3350 [MiraLAX] 17 gm PO BID 10/28/17 00:00 Vancomycin 1,750 mg Sodium Chloride 0.9% [Normal Saline] 500 ml IV Q12H 10/28/17 04:24 HEPATITIS PANEL, ACUTE [REF] Routine 10/28/17 08:28 PT Evaluation and Treatment [CONS] Routine 10/28/17 09:00 Dexamethasone 40 mg PO DAILY 10/28/17 11:04 Echo Comp wo Cont [US] Stat 10/28/17 11:30 VANCOMYCIN TROUGH [CHEM] Routine 10/29/17 05:11 BASIC METABOLIC PANEL,BMP [CHEM] AM CBC WITH AUTO DIFF [HEME] AM 10/30/17 05:11 BASIC METABOLIC PANEL,BMP [CHEM] AM CBC WITH AUTO DIFF [HEME] AM - Plan Plan:: 72 yo male admitted 10/26/16 for bilateral lower leg cullulitis with pmh of chronic venous insufficiency, type II diabetes, and pedal edema. Cellulitis: Continues to be afebrile with no leukocytosis. Vanc day 3, Less warm to touch today improving. Wound care to see patient this am. Blood cultures neg x 1 day. Type II diabetes: Poorly controlled A1C 8.6. Consult to early childhood educator aide today. Glucose TIDAC Insulin high sliding scale. Hypertension: Currently controlled. Lipids total chol: 167, LDL 95, HDL 30, Trigyc 210. ASCVD 38% Will start high intensity statin when more stabilized in addition to lifestyle modifications. Will monitor . Pedal Edema: Echo pending. Did give 40 lasix this am will monitor and plan for lasix 40 mg daily if tolerating. Systolic murmur grade 3 with history of rheumatic heart disease. 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 Talked with Dr. Osman pathologist who is looking at smear and plans to talk with Aris about past work-up. Have ordered HIV, Hep C , TSH, Vit B, Folate levels and will start high dose methylpred today at 40 mg PO for 4 days. May consider IVIG and transfusion if worsens or active bleeding. Hold pharm VTE proph. Scabies: Continue Ivermectin and permethrin secondary to widespread involvement yesterday. Benadryl for pruritus and added hydroxyzine today. Contact precautions. VTE: SCD Dispo: 2-3 days pending. PT is going to assess mobility today or tomorrow. Is living now in an apartment in [place].
[2017-10-28] MEDS ORDERED: IVERMECTIN 3 MG TABLETS PO ONE (12:45)
[2017-10-28] MEDS: hydrOXYzine HCl 25 MG Tab PO PRN ×2 (15:18→21:15)
[2017-10-28] MEDS: PERMETHRIN 5% TOP SCH (20:42)
[2017-10-29] MEDS: Morphine 2 MG/ML Syringe IVPUSH PRN ×4 (00:32→14:38)
[2017-10-29] MEDS: Acetaminophen/HYDROcodone 325-5 MG Tab PO PRN ×4 (00:37→18:40)
[2017-10-29] MEDS: diphenhydrAMINE 50 MG/ML SDV IVPUSH PRN ×3 (00:39→21:46)
[2017-10-29] MEDS ORDERED: Insulin Aspart 100 Units/ML 3 ML Pen SUBCUT ONE ×3 (08:09→21:34)
[2017-10-29] MEDS: Insulin Aspart 100 Units/ML 3 ML Pen SUBCUT SCH ×3 (08:43→16:58)
[2017-10-29] MEDS: Polyethylene Glycol 3350 Powder 17 GM Packet PO SCH ×2 (08:43→20:33)
[2017-10-29] MEDS: Dexamethasone 4 MG Tab PO SCH (08:43)
--- NOTE | 2017-10-29 08:47 | PCM.PN ---
- General Info Date of Service: 10/29/17 Admission Dx/Problem (Free Text): Admission Diagnosis/Problem Admission Diagnosis/Problem Cellulitis Subjective Update: Patient complains of multiple pinpoint red lesions on elbows and shoulders that bleed when scraped. He reports 2/10 improvement of the swelling and rash of his lower extremities since being in hospital. - Review of Systems General: Reports: No Symptoms HEENT: Reports: No Symptoms Pulmonary: Reports: No Symptoms Cardiovascular: Reports: No Symptoms, Edema Gastrointestinal: Reports: No Symptoms Genitourinary: Reports: No Symptoms Musculoskeletal: Reports: Leg Pain, Foot Pain Skin: Reports: Dryness, Pruritis, Rash Neurological: Reports: No Symptoms Psychiatric: Reports: No Symptoms - Patient Data Vitals - Most Recent: Last Vital Signs Temp 36.3 C 10/29/17 08:00 Pulse 68 10/29/17 08:00 Resp 18 10/29/17 08:00 BP 130/62 10/29/17 08:00 Pulse Ox 96 10/29/17 08:00 Weight - Most Recent: 165.21 kg I&O - Last 24 Hours: Intake & Output 10/28/17 10/29/17 10/29/17 22:59 06:59 14:59 Intake Total 1336 640 Output Total 1270 1800 Balance 66 -1160 Lab Results Last 24 Hours: Laboratory Results - last 24 hr 10/28/17 10/28/17 10/28/17 Range/Units 04:24 11:42 11:58 WBC (4.0-11.0) K/uL RBC (4.50-5.90) M/uL Hgb (13.0-17.0) g/dL Hct (38.0-50.0) % MCV (80.0-98.0) fL MCH (27.0-32.0) pg MCHC (31.0-37.0) g/dL RDW Std Deviation (28.0-62.0) fl RDW Coeff of Lb (11.0-15.0) % Plt Count (150-400) K/uL Neut % (Auto) (48.0-80.0) % Lymph % (Auto) (16.0-40.0) % [place] % (Auto) (0.0-15.0) % Eos % (Auto) (0.0-7.0) % Baso % (Auto) (0.0-1.5) % Neut # (Auto) (1.4-5.7) K/uL Lymph # (Auto) (0.6-2.4) K/uL [place] # (Auto) (0.0-0.8) K/uL Eos # (Auto) (0.0-0.7) K/uL Baso # (Auto) (0.0-0.1) K/uL Nucleated RBC % /100WBC Nucleated RBCs # K/uL Sodium (136-146) mmol/L Potassium (3.5-5.1) mmol/L Chloride (98-110) mmol/L Carbon Dioxide (21-31) mmol/L BUN (6.0-23.0) mg/dL Creatinine (0.6-1.5) mg/dL Est Cr Clr Drug Dosing mL/min Estimated GFR (MDRD) ml/min Glucose (60-110) mg/dL POC Glucose 266 H (60-110) mg/dL Calcium (8.8-10.8) mg/dL Vitamin B12 498 (200-1100) PG/ML Folate 2.9 L (7.2-15.4) ng/mL TSH 3rd Generation 19.00 H (0.47-5.0) uIU/mL Vancomycin Trough 18.9 H (5-15) ug/mL HIV 1&2 Ag/Ab, 4th Gen 0.1 (<1.0) 10/28/17 10/29/17 10/29/17 Range/Units 16:47 05:23 05:23 WBC 4.88 (4.0-11.0) K/uL RBC 4.85 (4.50-5.90) M/uL Hgb 11.6 L (13.0-17.0) g/dL Hct 38.3 (38.0-50.0) % MCV 79.0 L (80.0-98.0) fL MCH 23.9 L (27.0-32.0) pg MCHC 30.3 L (31.0-37.0) g/dL RDW Std Deviation 51.5 (28.0-62.0) fl RDW Coeff of Lb 18 H (11.0-15.0) % Plt Count 20 L (150-400) K/uL Neut % (Auto) 89.7 H (48.0-80.0) % Lymph % (Auto) 7.6 L (16.0-40.0) % [place] % (Auto) 2.7 (0.0-15.0) % Eos % (Auto) 0.0 (0.0-7.0) % Baso % (Auto) 0.0 (0.0-1.5) % Neut # (Auto) 4.4 (1.4-5.7) K/uL Lymph # (Auto) 0.4 L (0.6-2.4) K/uL [place] # (Auto) 0.1 (0.0-0.8) K/uL Eos # (Auto) 0.0 (0.0-0.7) K/uL Baso # (Auto) 0.0 (0.0-0.1) K/uL Nucleated RBC % 0.0 /100WBC Nucleated RBCs # 0 K/uL Sodium 133 L (136-146) mmol/L Potassium 5.8 H (3.5-5.1) mmol/L Chloride 102 (98-110) mmol/L Carbon Dioxide 23 (21-31) mmol/L BUN 34 H (6.0-23.0) mg/dL Creatinine 1.7 H (0.6-1.5) mg/dL Est Cr Clr Drug Dosing 50.44 mL/min Estimated GFR (MDRD) 39.9 ml/min Glucose 475 H (60-110) mg/dL POC Glucose 368 H (60-110) mg/dL Calcium 8.2 L (8.8-10.8) mg/dL Vitamin B12 (200-1100) PG/ML Folate (7.2-15.4) ng/mL TSH 3rd Generation (0.47-5.0) uIU/mL Vancomycin Trough (5-15) ug/mL HIV 1&2 Ag/Ab, 4th Gen (<1.0) 10/29/17 Range/Units 06:57 WBC (4.0-11.0) K/uL RBC (4.50-5.90) M/uL Hgb (13.0-17.0) g/dL Hct (38.0-50.0) % MCV (80.0-98.0) fL MCH (27.0-32.0) pg MCHC (31.0-37.0) g/dL RDW Std Deviation (28.0-62.0) fl RDW Coeff of Lb (11.0-15.0) % Plt Count (150-400) K/uL Neut % (Auto) (48.0-80.0) % Lymph % (Auto) (16.0-40.0) % [place] % (Auto) (0.0-15.0) % Eos % (Auto) (0.0-7.0) % Baso % (Auto) (0.0-1.5) % Neut # (Auto) (1.4-5.7) K/uL Lymph # (Auto) (0.6-2.4) K/uL [place] # (Auto) (0.0-0.8) K/uL Eos # (Auto) (0.0-0.7) K/uL Baso # (Auto) (0.0-0.1) K/uL Nucleated RBC % /100WBC Nucleated RBCs # K/uL Sodium (136-146) mmol/L Potassium (3.5-5.1) mmol/L Chloride (98-110) mmol/L Carbon Dioxide (21-31) mmol/L BUN (6.0-23.0) mg/dL Creatinine (0.6-1.5) mg/dL Est Cr Clr Drug Dosing mL/min Estimated GFR (MDRD) ml/min Glucose (60-110) mg/dL POC Glucose 410 H (60-110) mg/dL Calcium (8.8-10.8) mg/dL Vitamin B12 (200-1100) PG/ML Folate (7.2-15.4) ng/mL TSH 3rd Generation (0.47-5.0) uIU/mL Vancomycin Trough (5-15) ug/mL HIV 1&2 Ag/Ab, 4th Gen (<1.0) Med Orders - Current: Current Medications Acetaminophen (Tylenol) 650 mg PO Q4H PRN PRN Reason: Pain (Mild 1-3)/fever Last Admin: 10/27/17 11:36 Dose: 650 mg Hydrocodone Bitart/Acetaminophen ([place] 325-5 Mg) 2 tab PO Q4H PRN PRN Reason: Pain (moderate 4-6) Last Admin: 10/29/17 00:37 Dose: 2 tab Dexamethasone (Dexamethasone) 40 mg PO DAILY [facility] Last Admin: 10/29/17 08:43 Dose: 40 mg Diphenhydramine HCl (Benadryl) 25 mg IVPUSH Q6H PRN PRN Reason: Itching Last Admin: 10/29/17 00:39 Dose: 25 mg Hydroxyzine HCl (Atarax) 25 mg PO Q6H PRN PRN Reason: Itching Last Admin: 10/28/17 21:15 Dose: 25 mg Vancomycin HCl 2,000 mg/ (Sodium Chloride) 500 mls @ 250 mls/hr IV Q24H [facility] Last Admin: 10/28/17 16:49 Dose: 250 mls/hr Insulin Aspart (Novolog) 0 unit SUBCUT TIDAC [place] PRN Reason: Protocol Last Admin: 10/29/17 08:43 Dose: Not Given Morphine Sulfate (Morphine) 2 mg IVPUSH Q2H PRN PRN Reason: Pain (severe 7-10) Last Admin: 10/29/17 00:32 Dose: 2 mg Permethrin 5% Cram (Own Med) 1 each TOP Q2D [facility] Last Admin: 10/28/17 20:42 Dose: 1 each Ondansetron HCl (Zofran Odt) 4 mg PO Q4H PRN PRN Reason: nausea, able to take PO Ondansetron HCl (Zofran) 4 mg IVPUSH Q4H PRN PRN Reason: Nausea Polyethylene Glycol (Miralax) 17 gm PO BID [facility] Last Admin: 10/29/17 08:43 Dose: 17 gm Senna/Docusate Sodium (Senna Plus) 1 tab PO DAILY PRN PRN Reason: Constipation Last Admin: 10/28/17 09:27 Dose: 1 tab Sodium Chloride (Saline Flush) 10 ml FLUSH ASDIRECTED PRN PRN Reason: Keep Vein Open Last Admin: 10/26/17 11:59 Dose: 10 ml Sodium Chloride (Saline Flush) 2.5 ml FLUSH ASDIRECTED PRN PRN Reason: Keep Vein Open Last Admin: 10/26/17 11:59 Dose: 2.5 ml Vancomycin HCl (Pharmacy To Dose - Vancomycin) 1 dose .XX ASDIRECTED [facility] Discontinued Medications Calcium Carbonate/Glycine (Tums) 1,000 mg PO ONETIME ONE Stop: 10/27/17 08:44 Last Admin: 10/27/17 09:51 Dose: 1,000 mg Calcium Carbonate/Glycine (Tums) 1,000 mg PO ONETIME ONE Stop: 10/28/17 08:34 Last Admin: 10/28/17 09:25 Dose: 1,000 mg Enoxaparin Sodium (Lovenox) 40 mg SUBCUT Q24H [facility] Last Admin: 10/26/17 15:59 Dose: 40 mg Furosemide (Lasix) 40 mg IVPUSH NOW ONE Stop: 10/28/17 08:35 Last Admin: 10/28/17 09:25 Dose: 40 mg Heparin Sodium (Porcine) (Heparin Sodium) 5,000 units SUBCUT Q8H [facility] Last Admin: 10/26/17 18:18 Dose: Not Given Ceftriaxone Sodium/Dextrose 1 (gm/ Premix) 50 mls @ 100 mls/hr IV ONETIME ONE Stop: 10/26/17 13:53 Last Admin: 10/26/17 13:35 Dose: 100 mls/hr Vancomycin HCl 1,750 mg/ (Sodium Chloride) 500 mls @ 250 mls/hr IV Q12H [facility] Last Admin: 10/27/17 16:42 Dose: 250 mls/hr Vancomycin HCl 1,750 mg/ (Sodium Chloride) 500 mls @ 250 mls/hr IV Q12H [facility] Last Admin: 10/28/17 13:58 Dose: Not Given Insulin Aspart (Novolog) 15 unit SUBCUT ONETIME ONE Stop: 10/29/17 08:10 Last Admin: 10/29/17 08:42 Dose: 15 unit Lidocaine (Xylocaine-Mpf 2%) Confirm Administered Dose 5 ml .ROUTE .STK-MED ONE Stop: 10/27/17 21:22 Last Admin: 10/27/17 22:30 Dose: Not Given Morphine Sulfate (Morphine) 4 mg IVPUSH ONETIME ONE Stop: 10/26/17 13:10 Last Admin: 10/26/17 13:34 Dose: 4 mg Morphine Sulfate (Morphine) 2 mg IVPUSH Q2H PRN PRN Reason: Pain (severe 7-10) Stop: 10/27/17 14:15 Ivermectin 3mg Own (Med) 30,000 each PO ONETIME [facility] Ivermectin 3mg Own (Med) 30,000 each PO ONETIME ONE Stop: 10/26/17 19:01 Last Admin: 10/26/17 20:50 Dose: 30,000 each Ivermectin 3mg Own (Med) 8 each PO ONETIME ONE Stop: 10/27/17 19:01 Last Admin: 10/27/17 19:36 Dose: Not Given Ivermectin 3mg Own (Med) 30,000 each PO ONETIME ONE Stop: 10/26/17 19:01 Last Admin: 10/27/17 07:22 Dose: Not Given Ivermectin 3 Mg 10 each PO ONETIME ONE Stop: 10/27/17 19:01 Last Admin: 10/27/17 19:27 Dose: 10 each Ivermectin 3 Mg (Tablets) 7 each PO ONETIME ONE Stop: 10/28/17 12:46 Last Admin: 10/28/17 12:41 Dose: 7 each Ondansetron HCl (Zofran) 4 mg IVPUSH ONETIME ONE Stop: 10/26/17 13:10 Last Admin: 10/26/17 13:34 Dose: 4 mg - Exam General: Cooperative, No Acute Distress HEENT: Pupils Equal, Pupils Reactive, Mucous Membr. Moist/[place] Neck: Supple, No JVD Lungs: Clear to Auscultation, Normal Respiratory Effort Cardiovascular: Regular Rate, Regular Rhythm Extremities: Other (BL Lower extremitiy edema from toes to above the knee. ) Skin: Other (severe BL venous stasis. Mutiple superficial ulcers of BL lower extremitiy. Purpuric erythematous rash with minimal active bleeding of BL upper extremities ) Neurological: No New Focal Deficit Psy/Mental Status: Normal Mood - Problem List Review Problem List Initiated/Reviewed/Updated: Yes - Plan Plan:: 72 yo male admitted 10/26/16 for bilateral lower leg cullulitis with pmh of chronic venous insufficiency, type II diabetes, and pedal edema. #Cellulitis, BL lower extremities -currently on Vanco day 3, BC NGTD, no leukocytosis plan: -DC Vanco and start Rocephin #IDDM, Uncontrolled -A1C 8.6% -consulted DM educator plan: -start Lantus 60 units QD -continue ISS #hyperglycemia -plan as per above #BL Pedal Edema -echo obtained but no evidence of CHF -as per patient he is improving with Lasix plan -hold of on Lasix for now due to renal function -continue to monitor IO's #Thrombocytopenia -Platelets currently 20k, minimal bleeding present -Peripheral smear noncontributory -ordered HIV, Hep C, TSH, Vit B, Folate levels and will -started high dose methylpred yesterday at 40 mg PO QD for 4 days -continue to monitor platelet count and bleeding. If further decrease platelet count or worsening of bleeding then wither platelets will have to be ordered or patient will need to be transferred #Scabies -Continue Ivermectin and permethrin secondary -continue Benadryl and hydroxyzine for pruritus #Hyperkalemia -likely secondary to or associated with hyperglycemia -treat with insulin and monitor #NILS -will hold lasix and monitor -DC vancomycin and start rocephin #Increased TSH -patient likely has untreated hypothyroidism -obtain FT4 and Total T3 VTE: SCD
[2017-10-29] MEDS: Insulin Glargine,Human Rec. Analog 100 Units/ML 3 ML Pen SUBCUT SCH (12:35)
[2017-10-29] MEDS: cefTRIAXone 1 GM in Premix Bag 1 BAG IV SCH (12:44)
[2017-10-29] MEDS: hydrOXYzine HCl 25 MG Tab PO PRN (14:38)
[2017-10-29] MEDS: Folic Acid 1 MG Tab PO SCH (20:33)
[2017-10-30] MEDS: hydrOXYzine HCl 25 MG Tab PO PRN (00:47)
[2017-10-30] MEDS: Acetaminophen/HYDROcodone 325-5 MG Tab PO PRN ×5 (00:48→23:18)
[2017-10-30] MEDS ORDERED: Insulin Aspart 100 Units/ML 3 ML Pen SUBCUT ONE (01:47)
[2017-10-30] MEDS: Insulin Aspart 100 Units/ML 3 ML Pen SUBCUT SCH ×2 (06:46→12:55)
[2017-10-30] MEDS: diphenhydrAMINE 50 MG/ML SDV IVPUSH PRN (06:47)
[2017-10-30] MEDS ORDERED: Sodium Chloride 0.9% 500 ML IV ONE (09:19)
[2017-10-30] MEDS: Dexamethasone 4 MG Tab PO SCH (09:29)
[2017-10-30] MEDS: Polyethylene Glycol 3350 Powder 17 GM Packet PO SCH ×2 (09:29→20:20)
[2017-10-30] MEDS: Morphine 2 MG/ML Syringe IVPUSH PRN (09:50)
[2017-10-30] MEDS: Insulin Glargine,Human Rec. Analog 100 Units/ML 3 ML Pen SUBCUT SCH ×2 (10:08→23:17)
[2017-10-30] MEDS ORDERED: Furosemide 40 MG/4 ML VIAL IVPUSH ONE (11:00)
--- NOTE | 2017-10-30 11:28 | PCM.PN ---
- General Info Date of Service: 10/30/17 Admission Dx/Problem (Free Text): Admission Diagnosis/Problem Admission Diagnosis/Problem Cellulitis Subjective Update: Patient states his rash and swelling are improving. He no longer has pain in his feet Functional Status: Reports: Pain Controlled, Tolerating Diet, Ambulating, Urinating - Review of Systems General: Reports: Fatigue HEENT: Reports: No Symptoms Pulmonary: Reports: No Symptoms Cardiovascular: Reports: Edema Gastrointestinal: Reports: No Symptoms Genitourinary: Reports: No Symptoms Musculoskeletal: Reports: No Symptoms Skin: Reports: Pruritis, Rash Neurological: Reports: No Symptoms Psychiatric: Reports: No Symptoms - Patient Data Vitals - Most Recent: Last Vital Signs Temp 36.0 C 10/30/17 04:00 Pulse 46 L 10/30/17 04:00 Resp 18 10/30/17 04:00 BP 144/63 H 10/30/17 04:00 Pulse Ox 94 L 10/30/17 04:00 Weight - Most Recent: 174.497 kg I&O - Last 24 Hours: Intake & Output 10/29/17 10/30/17 10/30/17 22:59 06:59 14:59 Intake Total 1250 1800 Output Total 1285 1450 Balance -35 350 Lab Results Last 24 Hours: Laboratory Results - last 24 hr 10/29/17 10/29/17 10/29/17 Range/Units 11:56 14:43 14:43 WBC (4.0-11.0) K/uL RBC (4.50-5.90) M/uL Hgb (13.0-17.0) g/dL Hct (38.0-50.0) % MCV (80.0-98.0) fL MCH (27.0-32.0) pg MCHC (31.0-37.0) g/dL RDW Std Deviation (28.0-62.0) fl RDW Coeff of Lb (11.0-15.0) % Plt Count 29 L (150-400) K/uL Neut % (Auto) (48.0-80.0) % Lymph % (Auto) (16.0-40.0) % Desha % (Auto) (0.0-15.0) % Eos % (Auto) (0.0-7.0) % Baso % (Auto) (0.0-1.5) % Neut # (Auto) (1.4-5.7) K/uL Lymph # (Auto) (0.6-2.4) K/uL Desha # (Auto) (0.0-0.8) K/uL Eos # (Auto) (0.0-0.7) K/uL Baso # (Auto) (0.0-0.1) K/uL Nucleated RBC % /100WBC Nucleated RBCs # K/uL Sodium 132 L (136-146) mmol/L Potassium 5.4 H (3.5-5.1) mmol/L Chloride 100 (98-110) mmol/L Carbon Dioxide 21 (21-31) mmol/L BUN 38 H (6.0-23.0) mg/dL Creatinine 1.9 H (0.6-1.5) mg/dL Est Cr Clr Drug Dosing 45.13 mL/min Estimated GFR (MDRD) 35.1 ml/min Glucose 548 H* (60-110) mg/dL POC Glucose 433 H (60-110) mg/dL Calcium 8.4 L (8.8-10.8) mg/dL Free T4 (0.7-1.48) ng/dL 10/29/17 10/29/17 10/30/17 Range/Units 16:25 20:29 00:44 WBC (4.0-11.0) K/uL RBC (4.50-5.90) M/uL Hgb (13.0-17.0) g/dL Hct (38.0-50.0) % MCV (80.0-98.0) fL MCH (27.0-32.0) pg MCHC (31.0-37.0) g/dL RDW Std Deviation (28.0-62.0) fl RDW Coeff of Lb (11.0-15.0) % Plt Count (150-400) K/uL Neut % (Auto) (48.0-80.0) % Lymph % (Auto) (16.0-40.0) % Desha % (Auto) (0.0-15.0) % Eos % (Auto) (0.0-7.0) % Baso % (Auto) (0.0-1.5) % Neut # (Auto) (1.4-5.7) K/uL Lymph # (Auto) (0.6-2.4) K/uL Desha # (Auto) (0.0-0.8) K/uL Eos # (Auto) (0.0-0.7) K/uL Baso # (Auto) (0.0-0.1) K/uL Nucleated RBC % /100WBC Nucleated RBCs # K/uL Sodium (136-146) mmol/L Potassium (3.5-5.1) mmol/L Chloride (98-110) mmol/L Carbon Dioxide (21-31) mmol/L BUN (6.0-23.0) mg/dL Creatinine (0.6-1.5) mg/dL Est Cr Clr Drug Dosing mL/min Estimated GFR (MDRD) ml/min Glucose (60-110) mg/dL POC Glucose 434 H 472 H 491 H (60-110) mg/dL Calcium (8.8-10.8) mg/dL Free T4 (0.7-1.48) ng/dL 10/30/17 10/30/17 10/30/17 Range/Units 05:03 05:42 06:11 WBC 5.79 (4.0-11.0) K/uL RBC 4.87 (4.50-5.90) M/uL Hgb 11.9 L (13.0-17.0) g/dL Hct 38.0 (38.0-50.0) % MCV 78.0 L (80.0-98.0) fL MCH 24.4 L (27.0-32.0) pg MCHC 31.3 (31.0-37.0) g/dL RDW Std Deviation 51.0 (28.0-62.0) fl RDW Coeff of Lb 18 H (11.0-15.0) % Plt Count 32 L (150-400) K/uL Neut % (Auto) 84.3 H (48.0-80.0) % Lymph % (Auto) 9.0 L (16.0-40.0) % Desha % (Auto) 6.7 (0.0-15.0) % Eos % (Auto) 0.0 (0.0-7.0) % Baso % (Auto) 0.0 (0.0-1.5) % Neut # (Auto) 4.9 (1.4-5.7) K/uL Lymph # (Auto) 0.5 L (0.6-2.4) K/uL Desha # (Auto) 0.4 (0.0-0.8) K/uL Eos # (Auto) 0.0 (0.0-0.7) K/uL Baso # (Auto) 0.0 (0.0-0.1) K/uL Nucleated RBC % 0.0 /100WBC Nucleated RBCs # 0 K/uL Sodium 132 L (136-146) mmol/L Potassium 5.9 H (3.5-5.1) mmol/L Chloride 103 (98-110) mmol/L Carbon Dioxide 20 L (21-31) mmol/L BUN 44 H (6.0-23.0) mg/dL Creatinine 1.8 H (0.6-1.5) mg/dL Est Cr Clr Drug Dosing 47.64 mL/min Estimated GFR (MDRD) 37.4 ml/min Glucose 484 H (60-110) mg/dL POC Glucose 409 H (60-110) mg/dL Calcium 7.9 L (8.8-10.8) mg/dL Free T4 0.74 (0.7-1.48) ng/dL 10/30/17 10/30/17 Range/Units 06:46 08:29 WBC (4.0-11.0) K/uL RBC (4.50-5.90) M/uL Hgb (13.0-17.0) g/dL Hct (38.0-50.0) % MCV (80.0-98.0) fL MCH (27.0-32.0) pg MCHC (31.0-37.0) g/dL RDW Std Deviation (28.0-62.0) fl RDW Coeff of Lb (11.0-15.0) % Plt Count (150-400) K/uL Neut % (Auto) (48.0-80.0) % Lymph % (Auto) (16.0-40.0) % Desha % (Auto) (0.0-15.0) % Eos % (Auto) (0.0-7.0) % Baso % (Auto) (0.0-1.5) % Neut # (Auto) (1.4-5.7) K/uL Lymph # (Auto) (0.6-2.4) K/uL Desha # (Auto) (0.0-0.8) K/uL Eos # (Auto) (0.0-0.7) K/uL Baso # (Auto) (0.0-0.1) K/uL Nucleated RBC % /100WBC Nucleated RBCs # K/uL Sodium (136-146) mmol/L Potassium (3.5-5.1) mmol/L Chloride (98-110) mmol/L Carbon Dioxide (21-31) mmol/L BUN (6.0-23.0) mg/dL Creatinine (0.6-1.5) mg/dL Est Cr Clr Drug Dosing mL/min Estimated GFR (MDRD) ml/min Glucose (60-110) mg/dL POC Glucose 390 H > 500 H (60-110) mg/dL Calcium (8.8-10.8) mg/dL Free T4 (0.7-1.48) ng/dL Med Orders - Current: Current Medications Acetaminophen (Tylenol) 650 mg PO Q4H PRN PRN Reason: Pain (Mild 1-3)/fever Last Admin: 10/27/17 11:36 Dose: 650 mg Hydrocodone Bitart/Acetaminophen ([place] 325-5 Mg) 2 tab PO Q4H PRN PRN Reason: Pain (moderate 4-6) Last Admin: 10/30/17 06:45 Dose: 2 tab Dexamethasone (Dexamethasone) 40 mg PO DAILY [facility] Last Admin: 10/30/17 09:29 Dose: 40 mg Diphenhydramine HCl (Benadryl) 25 mg IVPUSH Q6H PRN PRN Reason: Itching Last Admin: 10/30/17 06:47 Dose: 25 mg Folic Acid (Folic Acid) 1 mg PO BEDTIME [facility] Last Admin: 10/29/17 20:33 Dose: 1 mg Hydroxyzine HCl (Atarax) 25 mg PO Q6H PRN PRN Reason: Itching Last Admin: 10/30/17 00:47 Dose: 25 mg Ceftriaxone Sodium/Dextrose 1 (gm/ Premix) 50 mls @ 200 mls/hr IV Q24H [facility] Last Admin: 10/29/17 12:44 Dose: 200 mls/hr Insulin Aspart (Novolog) 0 unit SUBCUT TIDAC [facility] PRN Reason: Protocol Last Admin: 10/30/17 06:46 Dose: 15 units Insulin Glargine (Lantus Solostar) 60 units SUBCUT BID [facility] Morphine Sulfate (Morphine) 2 mg IVPUSH Q2H PRN PRN Reason: Pain (severe 7-10) Last Admin: 10/30/17 09:50 Dose: 2 mg Permethrin 5% Cram (Own Med) 1 each TOP Q2D [facility] Last Admin: 10/28/17 20:42 Dose: 1 each Non-Formulary Medication (Nf Drug) 10 each PO 11/02/17@1900 [facility] Stop: 11/02/17 19:01 Ondansetron HCl (Zofran Odt) 4 mg PO Q4H PRN PRN Reason: nausea, able to take PO Ondansetron HCl (Zofran) 4 mg IVPUSH Q4H PRN PRN Reason: Nausea Polyethylene Glycol (Miralax) 17 gm PO BID [facility] Last Admin: 10/30/17 09:29 Dose: 17 gm Senna/Docusate Sodium (Senna Plus) 1 tab PO DAILY PRN PRN Reason: Constipation Last Admin: 10/28/17 09:27 Dose: 1 tab Sodium Chloride (Saline Flush) 10 ml FLUSH ASDIRECTED PRN PRN Reason: Keep Vein Open Last Admin: 10/26/17 11:59 Dose: 10 ml Sodium Chloride (Saline Flush) 2.5 ml FLUSH ASDIRECTED PRN PRN Reason: Keep Vein Open Last Admin: 10/26/17 11:59 Dose: 2.5 ml Discontinued Medications Calcium Carbonate/Glycine (Tums) 1,000 mg PO ONETIME ONE Stop: 10/27/17 08:44 Last Admin: 10/27/17 09:51 Dose: 1,000 mg Calcium Carbonate/Glycine (Tums) 1,000 mg PO ONETIME ONE Stop: 10/28/17 08:34 Last Admin: 10/28/17 09:25 Dose: 1,000 mg Enoxaparin Sodium (Lovenox) 40 mg SUBCUT Q24H [facility] Last Admin: 10/26/17 15:59 Dose: 40 mg Furosemide (Lasix) 40 mg IVPUSH NOW ONE Stop: 10/28/17 08:35 Last Admin: 10/28/17 09:25 Dose: 40 mg Furosemide (Lasix) 40 mg IVPUSH ONETIME ONE Stop: 10/30/17 11:01 Last Admin: 10/30/17 11:19 Dose: 40 mg Heparin Sodium (Porcine) (Heparin Sodium) 5,000 units SUBCUT Q8H [facility] Last Admin: 10/26/17 18:18 Dose: Not Given Ceftriaxone Sodium/Dextrose 1 (gm/ Premix) 50 mls @ 100 mls/hr IV ONETIME ONE Stop: 10/26/17 13:53 Last Admin: 10/26/17 13:35 Dose: 100 mls/hr Vancomycin HCl 1,750 mg/ (Sodium Chloride) 500 mls @ 250 mls/hr IV Q12H [facility] Last Admin: 10/27/17 16:42 Dose: 250 mls/hr Vancomycin HCl 1,750 mg/ (Sodium Chloride) 500 mls @ 250 mls/hr IV Q12H [facility] Last Admin: 10/28/17 13:58 Dose: Not Given Vancomycin HCl 2,000 mg/ (Sodium Chloride) 500 mls @ 250 mls/hr IV Q24H [facility] Last Admin: 10/28/17 16:49 Dose: 250 mls/hr Sodium Chloride (Normal Saline) 500 mls @ 250 mls/hr IV .BOLUS ONE Stop: 10/30/17 11:18 Last Admin: 10/30/17 09:55 Dose: 250 mls/hr Insulin Aspart (Novolog) 15 unit SUBCUT ONETIME ONE Stop: 10/29/17 08:10 Last Admin: 10/29/17 08:42 Dose: 15 unit Insulin Aspart (Novolog) 15 unit SUBCUT ONETIME ONE Stop: 10/29/17 15:37 Last Admin: 10/29/17 15:47 Dose: 15 unit Insulin Aspart (Novolog) 15 unit SUBCUT ONETIME ONE Stop: 10/29/17 21:35 Last Admin: 10/29/17 21:45 Dose: 15 units Insulin Aspart (Novolog) 20 unit SUBCUT ONETIME ONE Stop: 10/30/17 01:48 Last Admin: 10/30/17 02:09 Dose: 20 units Insulin Glargine (Lantus Solostar) 60 units SUBCUT DAILY [facility] Last Admin: 10/30/17 10:08 Dose: 60 unit Lidocaine (Xylocaine-Mpf 2%) Confirm Administered Dose 5 ml .ROUTE .STK-MED ONE Stop: 10/27/17 21:22 Last Admin: 10/27/17 22:30 Dose: Not Given Morphine Sulfate (Morphine) 4 mg IVPUSH ONETIME ONE Stop: 10/26/17 13:10 Last Admin: 10/26/17 13:34 Dose: 4 mg Morphine Sulfate (Morphine) 2 mg IVPUSH Q2H PRN PRN Reason: Pain (severe 7-10) Stop: 10/27/17 14:15 Ivermectin 3mg Own (Med) 30,000 each PO ONETIME ESSENCE Ivermectin 3mg Own (Med) 30,000 each PO ONETIME ONE Stop: 10/26/17 19:01 Last Admin: 10/26/17 20:50 Dose: 30,000 each Ivermectin 3mg Own (Med) 8 each PO ONETIME ONE Stop: 10/27/17 19:01 Last Admin: 10/27/17 19:36 Dose: Not Given Ivermectin 3mg Own (Med) 30,000 each PO ONETIME ONE Stop: 10/26/17 19:01 Last Admin: 10/27/17 07:22 Dose: Not Given Ivermectin 3 Mg 10 each PO ONETIME ONE Stop: 10/27/17 19:01 Last Admin: 10/27/17 19:27 Dose: 10 each Ivermectin 3 Mg (Tablets) 7 each PO ONETIME ONE Stop: 10/28/17 12:46 Last Admin: 10/28/17 12:41 Dose: 7 each Ondansetron HCl (Zofran) 4 mg IVPUSH ONETIME ONE Stop: 10/26/17 13:10 Last Admin: 10/26/17 13:34 Dose: 4 mg Vancomycin HCl (Pharmacy To Dose - Vancomycin) 1 dose .XX ASDIRECTED ESSENCE - Exam General: Cooperative, No Acute Distress HEENT: Pupils Equal, Pupils Reactive Neck: Supple Lungs: Clear to Auscultation, Normal Respiratory Effort Cardiovascular: Regular Rate, Regular Rhythm GI/Abdominal Exam: Normal Bowel Sounds, Soft, Non-Tender Extremities: Pedal Edema Skin: Rash (Diffuse purpuric rash on BL UE) Wound/Incisions: Healing Well, Dressing Dry and Intact, No Drainage, Erythema, Erythema Improving Neurological: No New Focal Deficit - Problem List Review Problem List Initiated/Reviewed/Updated: Yes - My Orders Last 24 Hours: My Active Orders 10/29/17 12:30 [email or web address] [Rocephin in Dextrose,Iso-Osm 1 GM/50 ML] 1 gm Premix Bag 1 bag IV Q24H 10/29/17 21:00 Folic Acid 1 mg PO BEDTIME 10/30/17 21:00 Insulin Glarg,Human.Rec.Analog [LantUS Solostar] 60 units SUBCUT BID - Plan Plan:: 72 yo male admitted 10/26/16 for bilateral lower leg cullulitis with pmh of chronic venous insufficiency, type II diabetes, and pedal edema. #Cellulitis, BL lower extremities, improving -currently on Rocephin, BC NGTD, no leukocytosis plan: -continue Rocephin #IDDM, Uncontrolled -A1C 8.6% -consulted DM educator plan: -Increase Lantus from 60 QD ti 60 BID -start higher ISS -consider insulin drip if BG consistently over 300 #hyperglycemia -likely also exacerbated by prednisone administration -plan as per above #BL Pedal Edema -echo obtained but no evidence of CHF -as per patient he is improving with Lasix plan -administer Lasix 40 mg IV, monitor IO's #Thrombocytopenia, improving slightly -Platelets currently 34k, minimal bleeding present -Peripheral smear noncontributory -ordered HIV, Hep C, TSH, Vit B, Folate levels and will -started high dose methylpred 40 mg PO QD f -continue to monitor platelet count and bleeding. If further decrease platelet count or worsening of bleeding then wither platelets will have to be ordered or patient will need to be transferred #Scabies -Continue Ivermectin and permethrin secondary -continue Benadryl and hydroxyzine for pruritus #Hyperkalemia -likely secondary to or associated with hyperglycemia -treat with Lasix and IVF #NILS -treat with IVF bolus and lasix IV single dose #Increased TSH -patient likely has untreated hypothyroidism and/or severe subclinical hypothyroidism -FT4 normal, awaiting total t3 VTE: SCD dispo: 2-5 days
[2017-10-30] MEDS: cefTRIAXone 1 GM in Premix Bag 1 BAG IV SCH (12:51)
[2017-10-30] MEDS: PERMETHRIN 5% TOP SCH (20:21)
[2017-10-30] MEDS: Folic Acid 1 MG Tab PO SCH (20:34)
[2017-10-31] MEDS: Morphine 2 MG/ML Syringe IVPUSH PRN ×3 (01:24→22:10)
[2017-10-31] MEDS: Acetaminophen/HYDROcodone 325-5 MG Tab PO PRN ×3 (04:27→20:07)
[2017-10-31] MEDS: Polyethylene Glycol 3350 Powder 17 GM Packet PO SCH ×3 (04:50→20:45)
[2017-10-31] MEDS: Insulin Aspart 100 Units/ML 3 ML Pen SUBCUT SCH (07:40)
[2017-10-31] MEDS: Dexamethasone 4 MG Tab PO SCH (08:09)
[2017-10-31] MEDS: hydrOXYzine HCl 25 MG Tab PO PRN (08:14)
[2017-10-31] MEDS: Insulin Glargine,Human Rec. Analog 100 Units/ML 3 ML Pen SUBCUT SCH ×2 (08:16→21:15)
[2017-10-31] MEDS ORDERED: Sodium Chloride 0.9% 500 ML IV ONE (08:30)
[2017-10-31] MEDS ORDERED: Furosemide 40 MG/4 ML VIAL IVPUSH ONE ×2 (08:35→09:30)
--- NOTE | 2017-10-31 08:37 | PCM.PN ---
- General Info Date of Service: 10/31/17 Admission Dx/Problem (Free Text): Admission Diagnosis/Problem Admission Diagnosis/Problem Cellulitis Subjective Update: No overnight events. Patient started on insulin drip due hyperglycemia Functional Status: Reports: Pain Controlled, Tolerating Diet, Ambulating, Urinating - Review of Systems General: Reports: No Symptoms HEENT: Reports: No Symptoms Pulmonary: Reports: No Symptoms Cardiovascular: Reports: Edema Gastrointestinal: Reports: No Symptoms Genitourinary: Reports: No Symptoms Musculoskeletal: Reports: No Symptoms Skin: Reports: Other (purpura) Neurological: Reports: No Symptoms Psychiatric: Reports: No Symptoms - Patient Data Vitals - Most Recent: Last Vital Signs Temp 35.5 C 10/31/17 07:15 Pulse 48 L 10/31/17 07:15 Resp 16 10/31/17 07:15 BP 173/70 H 10/31/17 08:00 Pulse Ox 93 L 10/31/17 07:15 Weight - Most Recent: 170.46 kg I&O - Last 24 Hours: Intake & Output 10/30/17 10/31/17 10/31/17 22:59 06:59 14:59 Intake Total 2250 Output Total 2485 Balance -235 Lab Results Last 24 Hours: Laboratory Results - last 24 hr 10/29/17 10/30/17 10/30/17 Range/Units 05:23 11:41 17:19 WBC (4.0-11.0) K/uL RBC (4.50-5.90) M/uL Hgb (13.0-17.0) g/dL Hct (38.0-50.0) % MCV (80.0-98.0) fL MCH (27.0-32.0) pg MCHC (31.0-37.0) g/dL RDW Std Deviation (28.0-62.0) fl RDW Coeff of Lb (11.0-15.0) % Plt Count (150-400) K/uL Neut % (Auto) (48.0-80.0) % Lymph % (Auto) (16.0-40.0) % Cloud % (Auto) (0.0-15.0) % Eos % (Auto) (0.0-7.0) % Baso % (Auto) (0.0-1.5) % Neut # (Auto) (1.4-5.7) K/uL Lymph # (Auto) (0.6-2.4) K/uL Cloud # (Auto) (0.0-0.8) K/uL Eos # (Auto) (0.0-0.7) K/uL Baso # (Auto) (0.0-0.1) K/uL Nucleated RBC % /100WBC Nucleated RBCs # K/uL Sodium (136-146) mmol/L Potassium (3.5-5.1) mmol/L Chloride (98-110) mmol/L Carbon Dioxide (21-31) mmol/L BUN (6.0-23.0) mg/dL Creatinine (0.6-1.5) mg/dL Est Cr Clr Drug Dosing mL/min Estimated GFR (MDRD) ml/min Glucose (60-110) mg/dL POC Glucose 396 H > 500 H (60-110) mg/dL Calcium (8.8-10.8) mg/dL Total Bilirubin (0.1-1.5) mg/dL AST (5-40) IU/L ALT (8-54) IU/L Alkaline Phosphatase (40-150) Total Protein (6.0-8.0) g/dL Albumin (3.4-4.8) g/dL Globulin (2.0-3.5) g/dL Albumin/Globulin Ratio (1.3-2.8) Total T3 49 L (87-178) ng/dL 10/30/17 10/30/17 10/30/17 Range/Units 19:07 20:19 21:25 WBC (4.0-11.0) K/uL RBC (4.50-5.90) M/uL Hgb (13.0-17.0) g/dL Hct (38.0-50.0) % MCV (80.0-98.0) fL MCH (27.0-32.0) pg MCHC (31.0-37.0) g/dL RDW Std Deviation (28.0-62.0) fl RDW Coeff of Lb (11.0-15.0) % Plt Count (150-400) K/uL Neut % (Auto) (48.0-80.0) % Lymph % (Auto) (16.0-40.0) % Cloud % (Auto) (0.0-15.0) % Eos % (Auto) (0.0-7.0) % Baso % (Auto) (0.0-1.5) % Neut # (Auto) (1.4-5.7) K/uL Lymph # (Auto) (0.6-2.4) K/uL Cloud # (Auto) (0.0-0.8) K/uL Eos # (Auto) (0.0-0.7) K/uL Baso # (Auto) (0.0-0.1) K/uL Nucleated RBC % /100WBC Nucleated RBCs # K/uL Sodium (136-146) mmol/L Potassium (3.5-5.1) mmol/L Chloride (98-110) mmol/L Carbon Dioxide (21-31) mmol/L BUN (6.0-23.0) mg/dL Creatinine (0.6-1.5) mg/dL Est Cr Clr Drug Dosing mL/min Estimated GFR (MDRD) ml/min Glucose (60-110) mg/dL POC Glucose > 500 H > 500 H > 500 H (60-110) mg/dL Calcium (8.8-10.8) mg/dL Total Bilirubin (0.1-1.5) mg/dL AST (5-40) IU/L ALT (8-54) IU/L Alkaline Phosphatase (40-150) Total Protein (6.0-8.0) g/dL Albumin (3.4-4.8) g/dL Globulin (2.0-3.5) g/dL Albumin/Globulin Ratio (1.3-2.8) Total T3 (87-178) ng/dL 10/30/17 10/30/17 10/30/17 Range/Units 21:57 22:25 23:13 WBC (4.0-11.0) K/uL RBC (4.50-5.90) M/uL Hgb (13.0-17.0) g/dL Hct (38.0-50.0) % MCV (80.0-98.0) fL MCH (27.0-32.0) pg MCHC (31.0-37.0) g/dL RDW Std Deviation (28.0-62.0) fl RDW Coeff of Lb (11.0-15.0) % Plt Count (150-400) K/uL Neut % (Auto) (48.0-80.0) % Lymph % (Auto) (16.0-40.0) % Cloud % (Auto) (0.0-15.0) % Eos % (Auto) (0.0-7.0) % Baso % (Auto) (0.0-1.5) % Neut # (Auto) (1.4-5.7) K/uL Lymph # (Auto) (0.6-2.4) K/uL Cloud # (Auto) (0.0-0.8) K/uL Eos # (Auto) (0.0-0.7) K/uL Baso # (Auto) (0.0-0.1) K/uL Nucleated RBC % /100WBC Nucleated RBCs # K/uL Sodium 133 L (136-146) mmol/L Potassium 5.1 (3.5-5.1) mmol/L Chloride 99 (98-110) mmol/L Carbon Dioxide 21 (21-31) mmol/L BUN 51 H (6.0-23.0) mg/dL Creatinine 2.0 H (0.6-1.5) mg/dL Est Cr Clr Drug Dosing 42.88 mL/min Estimated GFR (MDRD) 33.1 ml/min Glucose 609 H* (60-110) mg/dL POC Glucose > 500 H > 500 H (60-110) mg/dL Calcium 8.1 L (8.8-10.8) mg/dL Total Bilirubin (0.1-1.5) mg/dL AST (5-40) IU/L ALT (8-54) IU/L Alkaline Phosphatase (40-150) Total Protein (6.0-8.0) g/dL Albumin (3.4-4.8) g/dL Globulin (2.0-3.5) g/dL Albumin/Globulin Ratio (1.3-2.8) Total T3 (87-178) ng/dL 10/31/17 10/31/17 10/31/17 Range/Units 00:41 01:22 01:55 WBC (4.0-11.0) K/uL RBC (4.50-5.90) M/uL Hgb (13.0-17.0) g/dL Hct (38.0-50.0) % MCV (80.0-98.0) fL MCH (27.0-32.0) pg MCHC (31.0-37.0) g/dL RDW Std Deviation (28.0-62.0) fl RDW Coeff of Lb (11.0-15.0) % Plt Count (150-400) K/uL Neut % (Auto) (48.0-80.0) % Lymph % (Auto) (16.0-40.0) % Cloud % (Auto) (0.0-15.0) % Eos % (Auto) (0.0-7.0) % Baso % (Auto) (0.0-1.5) % Neut # (Auto) (1.4-5.7) K/uL Lymph # (Auto) (0.6-2.4) K/uL Cloud # (Auto) (0.0-0.8) K/uL Eos # (Auto) (0.0-0.7) K/uL Baso # (Auto) (0.0-0.1) K/uL Nucleated RBC % /100WBC Nucleated RBCs # K/uL Sodium (136-146) mmol/L Potassium (3.5-5.1) mmol/L Chloride (98-110) mmol/L Carbon Dioxide (21-31) mmol/L BUN (6.0-23.0) mg/dL Creatinine (0.6-1.5) mg/dL Est Cr Clr Drug Dosing mL/min Estimated GFR (MDRD) ml/min Glucose (60-110) mg/dL POC Glucose 467 H 335 H 333 H (60-110) mg/dL Calcium (8.8-10.8) mg/dL Total Bilirubin (0.1-1.5) mg/dL AST (5-40) IU/L ALT (8-54) IU/L Alkaline Phosphatase (40-150) Total Protein (6.0-8.0) g/dL Albumin (3.4-4.8) g/dL Globulin (2.0-3.5) g/dL Albumin/Globulin Ratio (1.3-2.8) Total T3 (87-178) ng/dL 10/31/17 10/31/17 10/31/17 Range/Units 03:03 04:08 05:09 WBC (4.0-11.0) K/uL RBC (4.50-5.90) M/uL Hgb (13.0-17.0) g/dL Hct (38.0-50.0) % MCV (80.0-98.0) fL MCH (27.0-32.0) pg MCHC (31.0-37.0) g/dL RDW Std Deviation (28.0-62.0) fl RDW Coeff of Lb (11.0-15.0) % Plt Count (150-400) K/uL Neut % (Auto) (48.0-80.0) % Lymph % (Auto) (16.0-40.0) % Cloud % (Auto) (0.0-15.0) % Eos % (Auto) (0.0-7.0) % Baso % (Auto) (0.0-1.5) % Neut # (Auto) (1.4-5.7) K/uL Lymph # (Auto) (0.6-2.4) K/uL Cloud # (Auto) (0.0-0.8) K/uL Eos # (Auto) (0.0-0.7) K/uL Baso # (Auto) (0.0-0.1) K/uL Nucleated RBC % /100WBC Nucleated RBCs # K/uL Sodium (136-146) mmol/L Potassium (3.5-5.1) mmol/L Chloride (98-110) mmol/L Carbon Dioxide (21-31) mmol/L BUN (6.0-23.0) mg/dL Creatinine (0.6-1.5) mg/dL Est Cr Clr Drug Dosing mL/min Estimated GFR (MDRD) ml/min Glucose (60-110) mg/dL POC Glucose 329 H 314 H 298 H (60-110) mg/dL Calcium (8.8-10.8) mg/dL Total Bilirubin (0.1-1.5) mg/dL AST (5-40) IU/L ALT (8-54) IU/L Alkaline Phosphatase (40-150) Total Protein (6.0-8.0) g/dL Albumin (3.4-4.8) g/dL Globulin (2.0-3.5) g/dL Albumin/Globulin Ratio (1.3-2.8) Total T3 (87-178) ng/dL 10/31/17 10/31/17 10/31/17 Range/Units 05:20 05:20 06:22 WBC 6.78 (4.0-11.0) K/uL RBC 5.11 (4.50-5.90) M/uL Hgb 12.3 L (13.0-17.0) g/dL Hct 39.7 (38.0-50.0) % MCV 77.7 L (80.0-98.0) fL MCH 24.1 L (27.0-32.0) pg MCHC 31.0 (31.0-37.0) g/dL RDW Std Deviation 50.7 (28.0-62.0) fl RDW Coeff of Lb 18 H (11.0-15.0) % Plt Count 22 L (150-400) K/uL Neut % (Auto) 83.0 H (48.0-80.0) % Lymph % (Auto) 8.0 L (16.0-40.0) % Cloud % (Auto) 9.0 (0.0-15.0) % Eos % (Auto) 0.0 (0.0-7.0) % Baso % (Auto) 0.0 (0.0-1.5) % Neut # (Auto) 5.6 (1.4-5.7) K/uL Lymph # (Auto) 0.5 L (0.6-2.4) K/uL Cloud # (Auto) 0.6 (0.0-0.8) K/uL Eos # (Auto) 0.0 (0.0-0.7) K/uL Baso # (Auto) 0.0 (0.0-0.1) K/uL Nucleated RBC % 0.4 /100WBC Nucleated RBCs # 0 K/uL Sodium 135 L (136-146) mmol/L Potassium 5.1 (3.5-5.1) mmol/L Chloride 101 (98-110) mmol/L Carbon Dioxide 24 (21-31) mmol/L BUN 50 H (6.0-23.0) mg/dL Creatinine 1.6 H (0.6-1.5) mg/dL Est Cr Clr Drug Dosing 53.59 mL/min Estimated GFR (MDRD) 42.8 ml/min Glucose 302 H (60-110) mg/dL POC Glucose 282 H (60-110) mg/dL Calcium 8.1 L (8.8-10.8) mg/dL Total Bilirubin 0.6 (0.1-1.5) mg/dL AST 26 (5-40) IU/L ALT 50 (8-54) IU/L Alkaline Phosphatase 82 (40-150) Total Protein 7.0 (6.0-8.0) g/dL Albumin 4.1 (3.4-4.8) g/dL Globulin 2.9 (2.0-3.5) g/dL Albumin/Globulin Ratio 1.4 (1.3-2.8) Total T3 (87-178) ng/dL 10/31/17 10/31/17 Range/Units 06:47 08:11 WBC (4.0-11.0) K/uL RBC (4.50-5.90) M/uL Hgb (13.0-17.0) g/dL Hct (38.0-50.0) % MCV (80.0-98.0) fL MCH (27.0-32.0) pg MCHC (31.0-37.0) g/dL RDW Std Deviation (28.0-62.0) fl RDW Coeff of Lb (11.0-15.0) % Plt Count (150-400) K/uL Neut % (Auto) (48.0-80.0) % Lymph % (Auto) (16.0-40.0) % Cloud % (Auto) (0.0-15.0) % Eos % (Auto) (0.0-7.0) % Baso % (Auto) (0.0-1.5) % Neut # (Auto) (1.4-5.7) K/uL Lymph # (Auto) (0.6-2.4) K/uL Cloud # (Auto) (0.0-0.8) K/uL Eos # (Auto) (0.0-0.7) K/uL Baso # (Auto) (0.0-0.1) K/uL Nucleated RBC % /100WBC Nucleated RBCs # K/uL Sodium (136-146) mmol/L Potassium (3.5-5.1) mmol/L Chloride (98-110) mmol/L Carbon Dioxide (21-31) mmol/L BUN (6.0-23.0) mg/dL Creatinine (0.6-1.5) mg/dL Est Cr Clr Drug Dosing mL/min Estimated GFR (MDRD) ml/min Glucose (60-110) mg/dL POC Glucose 274 H 324 H (60-110) mg/dL Calcium (8.8-10.8) mg/dL Total Bilirubin (0.1-1.5) mg/dL AST (5-40) IU/L ALT (8-54) IU/L Alkaline Phosphatase (40-150) Total Protein (6.0-8.0) g/dL Albumin (3.4-4.8) g/dL Globulin (2.0-3.5) g/dL Albumin/Globulin Ratio (1.3-2.8) Total T3 (87-178) ng/dL Med Orders - Current: Current Medications Acetaminophen (Tylenol) 650 mg PO Q4H PRN PRN Reason: Pain (Mild 1-3)/fever Last Admin: 10/27/17 11:36 Dose: 650 mg Hydrocodone Bitart/Acetaminophen ([place] 325-5 Mg) 2 tab PO Q4H PRN PRN Reason: Pain (moderate 4-6) Last Admin: 10/31/17 08:24 Dose: 2 tab Dexamethasone (Dexamethasone) 40 mg PO DAILY [facility] Last Admin: 10/31/17 08:09 Dose: 40 mg Diphenhydramine HCl (Benadryl) 25 mg IVPUSH Q6H PRN PRN Reason: Itching Last Admin: 10/30/17 06:47 Dose: 25 mg Folic Acid (Folic Acid) 1 mg PO BEDTIME [facility] Last Admin: 10/30/17 20:34 Dose: 1 mg Furosemide (Lasix) 40 mg IVPUSH NOW ONE Stop: 10/31/17 08:36 Hydroxyzine HCl (Atarax) 25 mg PO Q6H PRN PRN Reason: Itching Last Admin: 10/31/17 08:14 Dose: 25 mg Ceftriaxone Sodium/Dextrose 1 (gm/ Premix) 50 mls @ 200 mls/hr IV Q24H [facility] Last Admin: 10/30/17 12:51 Dose: 200 mls/hr Insulin Human Regular 100 unit (/ Sodium Chloride) 100 mls @ 4 mls/hr IV TITRATE [place]; 4 UNIT/HR PRN Reason: Protocol Last Titration: 10/31/17 08:18 Dose: 5 unit/hr, 5 mls/hr Sodium Chloride (Normal Saline) 500 mls @ 250 mls/hr IV .BOLUS ONE Stop: 10/31/17 10:29 Insulin Glargine (Lantus Solostar) 60 units SUBCUT BID [facility] Last Admin: 10/31/17 08:16 Dose: 60 units Morphine Sulfate (Morphine) 2 mg IVPUSH Q2H PRN PRN Reason: Pain (severe 7-10) Last Admin: 10/31/17 06:24 Dose: 2 mg Permethrin 5% Cram (Own Med) 1 each TOP Q2D [facility] Last Admin: 10/30/17 20:21 Dose: 1 each Non-Formulary Medication (Nf Drug) 10 each PO 11/02/17@1900 [facility] Stop: 11/02/17 19:01 Ondansetron HCl (Zofran Odt) 4 mg PO Q4H PRN PRN Reason: nausea, able to take PO Ondansetron HCl (Zofran) 4 mg IVPUSH Q4H PRN PRN Reason: Nausea Polyethylene Glycol (Miralax) 17 gm PO BID [facility] Last Admin: 10/31/17 08:23 Dose: Not Given Senna/Docusate Sodium (Senna Plus) 1 tab PO DAILY PRN PRN Reason: Constipation Last Admin: 10/28/17 09:27 Dose: 1 tab Sodium Chloride (Saline Flush) 10 ml FLUSH ASDIRECTED PRN PRN Reason: Keep Vein Open Last Admin: 10/26/17 11:59 Dose: 10 ml Sodium Chloride (Saline Flush) 2.5 ml FLUSH ASDIRECTED PRN PRN Reason: Keep Vein Open Last Admin: 10/26/17 11:59 Dose: 2.5 ml Discontinued Medications Calcium Carbonate/Glycine (Tums) 1,000 mg PO ONETIME ONE Stop: 10/27/17 08:44 Last Admin: 10/27/17 09:51 Dose: 1,000 mg Calcium Carbonate/Glycine (Tums) 1,000 mg PO ONETIME ONE Stop: 10/28/17 08:34 Last Admin: 10/28/17 09:25 Dose: 1,000 mg Enoxaparin Sodium (Lovenox) 40 mg SUBCUT Q24H [facility] Last Admin: 10/26/17 15:59 Dose: 40 mg Furosemide (Lasix) 40 mg IVPUSH NOW ONE Stop: 10/28/17 08:35 Last Admin: 10/28/17 09:25 Dose: 40 mg Furosemide (Lasix) 40 mg IVPUSH ONETIME ONE Stop: 10/30/17 11:01 Last Admin: 10/30/17 11:19 Dose: 40 mg Furosemide (Lasix) 40 mg IVPUSH NOW ONE Stop: 10/31/17 09:31 Heparin Sodium (Porcine) (Heparin Sodium) 5,000 units SUBCUT Q8H [facility] Last Admin: 10/26/17 18:18 Dose: Not Given Ceftriaxone Sodium/Dextrose 1 (gm/ Premix) 50 mls @ 100 mls/hr IV ONETIME ONE Stop: 10/26/17 13:53 Last Admin: 10/26/17 13:35 Dose: 100 mls/hr Vancomycin HCl 1,750 mg/ (Sodium Chloride) 500 mls @ 250 mls/hr IV Q12H [facility] Last Admin: 10/27/17 16:42 Dose: 250 mls/hr Vancomycin HCl 1,750 mg/ (Sodium Chloride) 500 mls @ 250 mls/hr IV Q12H [facility] Last Admin: 10/28/17 13:58 Dose: Not Given Vancomycin HCl 2,000 mg/ (Sodium Chloride) 500 mls @ 250 mls/hr IV Q24H [facility] Last Admin: 10/28/17 16:49 Dose: 250 mls/hr Sodium Chloride (Normal Saline) 500 mls @ 250 mls/hr IV .BOLUS ONE Stop: 10/30/17 11:18 Last Admin: 10/30/17 09:55 Dose: 250 mls/hr Insulin Aspart (Novolog) 0 unit SUBCUT TIDAC [facility] PRN Reason: Protocol Last Admin: 10/31/17 07:40 Dose: Not Given Insulin Aspart (Novolog) 15 unit SUBCUT ONETIME ONE Stop: 10/29/17 08:10 Last Admin: 10/29/17 08:42 Dose: 15 unit Insulin Aspart (Novolog) 15 unit SUBCUT ONETIME ONE Stop: 10/29/17 15:37 Last Admin: 10/29/17 15:47 Dose: 15 unit Insulin Aspart (Novolog) 15 unit SUBCUT ONETIME ONE Stop: 10/29/17 21:35 Last Admin: 10/29/17 21:45 Dose: 15 units Insulin Aspart (Novolog) 20 unit SUBCUT ONETIME ONE Stop: 10/30/17 01:48 Last Admin: 10/30/17 02:09 Dose: 20 units Insulin Glargine (Lantus Solostar) 60 units SUBCUT DAILY [facility] Last Admin: 10/30/17 10:08 Dose: 60 unit Lidocaine (Xylocaine-Mpf 2%) Confirm Administered Dose 5 ml .ROUTE .STK-MED ONE Stop: 10/27/17 21:22 Last Admin: 10/27/17 22:30 Dose: Not Given Morphine Sulfate (Morphine) 4 mg IVPUSH ONETIME ONE Stop: 10/26/17 13:10 Last Admin: 10/26/17 13:34 Dose: 4 mg Morphine Sulfate (Morphine) 2 mg IVPUSH Q2H PRN PRN Reason: Pain (severe 7-10) Stop: 10/27/17 14:15 Ivermectin 3mg Own (Med) 30,000 each PO ONETIME [facility] Ivermectin 3mg Own (Med) 30,000 each PO ONETIME ONE Stop: 10/26/17 19:01 Last Admin: 10/26/17 20:50 Dose: 30,000 each Ivermectin 3mg Own (Med) 8 each PO ONETIME ONE Stop: 10/27/17 19:01 Last Admin: 10/27/17 19:36 Dose: Not Given Ivermectin 3mg Own (Med) 30,000 each PO ONETIME ONE Stop: 10/26/17 19:01 Last Admin: 10/27/17 07:22 Dose: Not Given Ivermectin 3 Mg 10 each PO ONETIME ONE Stop: 10/27/17 19:01 Last Admin: 10/27/17 19:27 Dose: 10 each Ivermectin 3 Mg (Tablets) 7 each PO ONETIME ONE Stop: 10/28/17 12:46 Last Admin: 10/28/17 12:41 Dose: 7 each Ondansetron HCl (Zofran) 4 mg IVPUSH ONETIME ONE Stop: 10/26/17 13:10 Last Admin: 10/26/17 13:34 Dose: 4 mg Vancomycin HCl (Pharmacy To Dose - Vancomycin) 1 dose .XX ASDIRECTED [place] - Exam General: Cooperative, No Acute Distress HEENT: Mucous Membr. Moist/[place] Neck: Supple Lungs: Clear to Auscultation, Normal Respiratory Effort Cardiovascular: Regular Rate, Regular Rhythm GI/Abdominal Exam: Normal Bowel Sounds, Soft, Non-Tender, No Distention Extremities: Pedal Edema Skin: Other (duffise purpura of BL UE, bleeding present ) Wound/Incisions: Dressing Dry and Intact, No Drainage, Erythema - Problem List Review Problem List Initiated/Reviewed/Updated: Yes - My Orders Last 24 Hours: My Active Orders 10/30/17 21:00 Insulin Glarg,Human.Rec.Analog [LantUS Solostar] 60 units SUBCUT BID 10/31/17 08:30 Sodium Chloride 0.9% [Normal Saline] 500 ml IV .BOLUS 10/31/17 08:35 Furosemide [Lasix] 40 mg IVPUSH NOW ONE 11/01/17 05:11 CBC WITH AUTO DIFF [HEME] AM CMP [COMPREHENSIVE METABOLIC PN,CMP] [CHEM] AM 11/02/17 05:11 CBC WITH AUTO DIFF [HEME] AM CMP [COMPREHENSIVE METABOLIC PN,CMP] [CHEM] AM 11/03/17 05:11 CBC WITH AUTO DIFF [HEME] AM CMP [COMPREHENSIVE METABOLIC PN,CMP] [CHEM] AM 11/04/17 05:11 CBC WITH AUTO DIFF [HEME] AM CMP [COMPREHENSIVE METABOLIC PN,CMP] [CHEM] AM 11/05/17 05:11 CBC WITH AUTO DIFF [HEME] AM CMP [COMPREHENSIVE METABOLIC PN,CMP] [CHEM] AM 11/06/17 05:11 CBC WITH AUTO DIFF [HEME] AM CMP [COMPREHENSIVE METABOLIC PN,CMP] [CHEM] AM 11/07/17 05:11 CBC WITH AUTO DIFF [HEME] AM CMP [COMPREHENSIVE METABOLIC PN,CMP] [CHEM] AM 11/08/17 05:11 CBC WITH AUTO DIFF [HEME] AM CMP [COMPREHENSIVE METABOLIC PN,CMP] [CHEM] AM 11/09/17 05:11 CBC WITH AUTO DIFF [HEME] AM CMP [COMPREHENSIVE METABOLIC PN,CMP] [CHEM] AM - Plan Plan:: 72 yo male admitted 10/26/16 for bilateral lower leg cullulitis with pmh of chronic venous insufficiency, type II diabetes, and pedal edema. #Cellulitis, BL lower extremities, improving -currently on Rocephin, BC NGTD, no leukocytosis plan: -continue Rocephin #IDDM, Uncontrolled -A1C 8.6% -on Insulin drip, glucose ranging 200-400 plan: -continue insulin drip #hyperglycemia -likely also exacerbated by prednisone administration -plan as per above #BL Pedal Edema -echo obtained but no evidence of CHF -improving with Lasix plan -continue Lasix as tolerated #Thrombocytopenia -Platelets down from 34k yesterday to 22k today, minimal bleeding present -Peripheral smear noncontributory -ordered HIV, Hep C, TSH, Vit B, Folate levels and will -on high dose methylpred 40 mg PO QD plan -order platelets for transfusion #Hyperkalemia, improving -continue to monitor and treat with Lasix and IVF as tolerated #NILS, improving -Cr improved from 2 to 1.6, GFR improved from 33 to 43 -continue IVF and lasix IV as tolerated #Increased TSH -patient likely has untreated hypothyroidism and/or severe subclinical hypothyroidism -FT4 normal, awaiting total t3 VTE: SCD dispo: 2-5 days
[2017-10-31] MEDS: cefTRIAXone 1 GM in Premix Bag 1 BAG IV SCH (12:02)
--- NOTE | 2017-10-31 15:38 | ECHO ---
EXAM DATE: 10/26/17 PATIENT'S AGE: 72 The echocardiogram report can be seen in this patient's EMR (Electronic Medical Record) in the Reports section. The report has also been scanned into PACs. [facility]
[2017-10-31] MEDS: Folic Acid 1 MG Tab PO SCH (20:07)
[2017-11-01] MEDS: Acetaminophen/HYDROcodone 325-5 MG Tab PO PRN ×5 (00:14→20:55)
[2017-11-01] MEDS: Morphine 2 MG/ML Syringe IVPUSH PRN ×6 (02:22→22:12)
[2017-11-01] MEDS: Insulin Glargine,Human Rec. Analog 100 Units/ML 3 ML Pen SUBCUT SCH ×2 (08:14→20:57)
--- NOTE | 2017-11-01 08:46 | PCM.PN ---
- General Info Date of Service: 11/01/17 Admission Dx/Problem (Free Text): Admission Diagnosis/Problem Admission Diagnosis/Problem Cellulitis Subjective Update: No overnight events. Patient started on insulin drip due hyperglycemia. blood glucose slightly improved Functional Status: Reports: Pain Controlled, Tolerating Diet, Ambulating, Urinating - Review of Systems General: Reports: No Symptoms HEENT: Reports: No Symptoms Pulmonary: Reports: No Symptoms Cardiovascular: Reports: Edema Gastrointestinal: Reports: No Symptoms Genitourinary: Reports: No Symptoms Musculoskeletal: Reports: No Symptoms, Other (bl lower extremity edema ) Skin: Reports: Other (bleeding purpura) Neurological: Reports: No Symptoms Psychiatric: Reports: No Symptoms - Patient Data Vitals - Most Recent: Last Vital Signs Temp 37.0 C 11/01/17 08:00 Pulse 50 L 11/01/17 08:00 Resp 20 11/01/17 08:00 BP 224/98 H 11/01/17 08:00 Pulse Ox 93 L 11/01/17 08:00 Weight - Most Recent: 171.5 kg I&O - Last 24 Hours: Intake & Output 10/31/17 11/01/17 11/01/17 22:59 06:59 14:59 Intake Total 1180 840 218 Output Total 2800 1900 Balance -1620 -1060 218 Lab Results Last 24 Hours: Laboratory Results - last 24 hr 10/28/17 10/31/17 10/31/17 Range/Units 04:24 08:59 09:59 WBC (4.0-11.0) K/uL RBC (4.50-5.90) M/uL Hgb (13.0-17.0) g/dL Hct (38.0-50.0) % MCV (80.0-98.0) fL MCH (27.0-32.0) pg MCHC (31.0-37.0) g/dL RDW Std Deviation (28.0-62.0) fl RDW Coeff of Lb (11.0-15.0) % Plt Count (150-400) K/uL Neut % (Auto) (48.0-80.0) % Lymph % (Auto) (16.0-40.0) % Elk % (Auto) (0.0-15.0) % Eos % (Auto) (0.0-7.0) % Baso % (Auto) (0.0-1.5) % Neut # (Auto) (1.4-5.7) K/uL Lymph # (Auto) (0.6-2.4) K/uL Elk # (Auto) (0.0-0.8) K/uL Eos # (Auto) (0.0-0.7) K/uL Baso # (Auto) (0.0-0.1) K/uL Nucleated RBC % /100WBC Nucleated RBCs # K/uL Sodium (136-146) mmol/L Potassium (3.5-5.1) mmol/L Chloride (98-110) mmol/L Carbon Dioxide (21-31) mmol/L BUN (6.0-23.0) mg/dL Creatinine (0.6-1.5) mg/dL Est Cr Clr Drug Dosing mL/min Estimated GFR (MDRD) ml/min Glucose (60-110) mg/dL POC Glucose 331 H 327 H (60-110) mg/dL Calcium (8.8-10.8) mg/dL Total Bilirubin (0.1-1.5) mg/dL AST (5-40) IU/L ALT (8-54) IU/L Alkaline Phosphatase (40-150) Total Protein (6.0-8.0) g/dL Albumin (3.4-4.8) g/dL Globulin (2.0-3.5) g/dL Albumin/Globulin Ratio (1.3-2.8) Hepatitis A IgM Ab Non Reactive (NR) Hep Bs Antigen Non Reactive (NR) Hep B Core IgM Ab Non Reactive (NR) Hepatitis C Antibody Non Reactive (NR) Hepatitis Interpret SEE BELOW Blood Type 10/31/17 10/31/17 10/31/17 Range/Units 10:53 12:00 12:57 WBC (4.0-11.0) K/uL RBC (4.50-5.90) M/uL Hgb (13.0-17.0) g/dL Hct (38.0-50.0) % MCV (80.0-98.0) fL MCH (27.0-32.0) pg MCHC (31.0-37.0) g/dL RDW Std Deviation (28.0-62.0) fl RDW Coeff of Lb (11.0-15.0) % Plt Count (150-400) K/uL Neut % (Auto) (48.0-80.0) % Lymph % (Auto) (16.0-40.0) % Elk % (Auto) (0.0-15.0) % Eos % (Auto) (0.0-7.0) % Baso % (Auto) (0.0-1.5) % Neut # (Auto) (1.4-5.7) K/uL Lymph # (Auto) (0.6-2.4) K/uL Elk # (Auto) (0.0-0.8) K/uL Eos # (Auto) (0.0-0.7) K/uL Baso # (Auto) (0.0-0.1) K/uL Nucleated RBC % /100WBC Nucleated RBCs # K/uL Sodium (136-146) mmol/L Potassium (3.5-5.1) mmol/L Chloride (98-110) mmol/L Carbon Dioxide (21-31) mmol/L BUN (6.0-23.0) mg/dL Creatinine (0.6-1.5) mg/dL Est Cr Clr Drug Dosing mL/min Estimated GFR (MDRD) ml/min Glucose (60-110) mg/dL POC Glucose 301 H 294 H 272 H (60-110) mg/dL Calcium (8.8-10.8) mg/dL Total Bilirubin (0.1-1.5) mg/dL AST (5-40) IU/L ALT (8-54) IU/L Alkaline Phosphatase (40-150) Total Protein (6.0-8.0) g/dL Albumin (3.4-4.8) g/dL Globulin (2.0-3.5) g/dL Albumin/Globulin Ratio (1.3-2.8) Hepatitis A IgM Ab (NR) Hep Bs Antigen (NR) Hep B Core IgM Ab (NR) Hepatitis C Antibody (NR) Hepatitis Interpret Blood Type 10/31/17 10/31/17 10/31/17 Range/Units 13:55 14:59 16:01 WBC (4.0-11.0) K/uL RBC (4.50-5.90) M/uL Hgb (13.0-17.0) g/dL Hct (38.0-50.0) % MCV (80.0-98.0) fL MCH (27.0-32.0) pg MCHC (31.0-37.0) g/dL RDW Std Deviation (28.0-62.0) fl RDW Coeff of Lb (11.0-15.0) % Plt Count (150-400) K/uL Neut % (Auto) (48.0-80.0) % Lymph % (Auto) (16.0-40.0) % Elk % (Auto) (0.0-15.0) % Eos % (Auto) (0.0-7.0) % Baso % (Auto) (0.0-1.5) % Neut # (Auto) (1.4-5.7) K/uL Lymph # (Auto) (0.6-2.4) K/uL Elk # (Auto) (0.0-0.8) K/uL Eos # (Auto) (0.0-0.7) K/uL Baso # (Auto) (0.0-0.1) K/uL Nucleated RBC % /100WBC Nucleated RBCs # K/uL Sodium (136-146) mmol/L Potassium (3.5-5.1) mmol/L Chloride (98-110) mmol/L Carbon Dioxide (21-31) mmol/L BUN (6.0-23.0) mg/dL Creatinine (0.6-1.5) mg/dL Est Cr Clr Drug Dosing mL/min Estimated GFR (MDRD) ml/min Glucose (60-110) mg/dL POC Glucose 317 H 353 H 384 H (60-110) mg/dL Calcium (8.8-10.8) mg/dL Total Bilirubin (0.1-1.5) mg/dL AST (5-40) IU/L ALT (8-54) IU/L Alkaline Phosphatase (40-150) Total Protein (6.0-8.0) g/dL Albumin (3.4-4.8) g/dL Globulin (2.0-3.5) g/dL Albumin/Globulin Ratio (1.3-2.8) Hepatitis A IgM Ab (NR) Hep Bs Antigen (NR) Hep B Core IgM Ab (NR) Hepatitis C Antibody (NR) Hepatitis Interpret Blood Type 10/31/17 10/31/17 10/31/17 Range/Units 16:56 17:58 18:56 WBC (4.0-11.0) K/uL RBC (4.50-5.90) M/uL Hgb (13.0-17.0) g/dL Hct (38.0-50.0) % MCV (80.0-98.0) fL MCH (27.0-32.0) pg MCHC (31.0-37.0) g/dL RDW Std Deviation (28.0-62.0) fl RDW Coeff of Lb (11.0-15.0) % Plt Count (150-400) K/uL Neut % (Auto) (48.0-80.0) % Lymph % (Auto) (16.0-40.0) % Elk % (Auto) (0.0-15.0) % Eos % (Auto) (0.0-7.0) % Baso % (Auto) (0.0-1.5) % Neut # (Auto) (1.4-5.7) K/uL Lymph # (Auto) (0.6-2.4) K/uL Elk # (Auto) (0.0-0.8) K/uL Eos # (Auto) (0.0-0.7) K/uL Baso # (Auto) (0.0-0.1) K/uL Nucleated RBC % /100WBC Nucleated RBCs # K/uL Sodium (136-146) mmol/L Potassium (3.5-5.1) mmol/L Chloride (98-110) mmol/L Carbon Dioxide (21-31) mmol/L BUN (6.0-23.0) mg/dL Creatinine (0.6-1.5) mg/dL Est Cr Clr Drug Dosing mL/min Estimated GFR (MDRD) ml/min Glucose (60-110) mg/dL POC Glucose 412 H 368 H 401 H (60-110) mg/dL Calcium (8.8-10.8) mg/dL Total Bilirubin (0.1-1.5) mg/dL AST (5-40) IU/L ALT (8-54) IU/L Alkaline Phosphatase (40-150) Total Protein (6.0-8.0) g/dL Albumin (3.4-4.8) g/dL Globulin (2.0-3.5) g/dL Albumin/Globulin Ratio (1.3-2.8) Hepatitis A IgM Ab (NR) Hep Bs Antigen (NR) Hep B Core IgM Ab (NR) Hepatitis C Antibody (NR) Hepatitis Interpret Blood Type 10/31/17 10/31/17 10/31/17 Range/Units 20:09 21:03 22:08 WBC (4.0-11.0) K/uL RBC (4.50-5.90) M/uL Hgb (13.0-17.0) g/dL Hct (38.0-50.0) % MCV (80.0-98.0) fL MCH (27.0-32.0) pg MCHC (31.0-37.0) g/dL RDW Std Deviation (28.0-62.0) fl RDW Coeff of Lb (11.0-15.0) % Plt Count (150-400) K/uL Neut % (Auto) (48.0-80.0) % Lymph % (Auto) (16.0-40.0) % Elk % (Auto) (0.0-15.0) % Eos % (Auto) (0.0-7.0) % Baso % (Auto) (0.0-1.5) % Neut # (Auto) (1.4-5.7) K/uL Lymph # (Auto) (0.6-2.4) K/uL Elk # (Auto) (0.0-0.8) K/uL Eos # (Auto) (0.0-0.7) K/uL Baso # (Auto) (0.0-0.1) K/uL Nucleated RBC % /100WBC Nucleated RBCs # K/uL Sodium (136-146) mmol/L Potassium (3.5-5.1) mmol/L Chloride (98-110) mmol/L Carbon Dioxide (21-31) mmol/L BUN (6.0-23.0) mg/dL Creatinine (0.6-1.5) mg/dL Est Cr Clr Drug Dosing mL/min Estimated GFR (MDRD) ml/min Glucose (60-110) mg/dL POC Glucose 430 H 392 H 398 H (60-110) mg/dL Calcium (8.8-10.8) mg/dL Total Bilirubin (0.1-1.5) mg/dL AST (5-40) IU/L ALT (8-54) IU/L Alkaline Phosphatase (40-150) Total Protein (6.0-8.0) g/dL Albumin (3.4-4.8) g/dL Globulin (2.0-3.5) g/dL Albumin/Globulin Ratio (1.3-2.8) Hepatitis A IgM Ab (NR) Hep Bs Antigen (NR) Hep B Core IgM Ab (NR) Hepatitis C Antibody (NR) Hepatitis Interpret Blood Type 10/31/17 11/01/17 11/01/17 Range/Units 23:22 00:17 01:22 WBC (4.0-11.0) K/uL RBC (4.50-5.90) M/uL Hgb (13.0-17.0) g/dL Hct (38.0-50.0) % MCV (80.0-98.0) fL MCH (27.0-32.0) pg MCHC (31.0-37.0) g/dL RDW Std Deviation (28.0-62.0) fl RDW Coeff of Lb (11.0-15.0) % Plt Count (150-400) K/uL Neut % (Auto) (48.0-80.0) % Lymph % (Auto) (16.0-40.0) % Elk % (Auto) (0.0-15.0) % Eos % (Auto) (0.0-7.0) % Baso % (Auto) (0.0-1.5) % Neut # (Auto) (1.4-5.7) K/uL Lymph # (Auto) (0.6-2.4) K/uL Elk # (Auto) (0.0-0.8) K/uL Eos # (Auto) (0.0-0.7) K/uL Baso # (Auto) (0.0-0.1) K/uL Nucleated RBC % /100WBC Nucleated RBCs # K/uL Sodium (136-146) mmol/L Potassium (3.5-5.1) mmol/L Chloride (98-110) mmol/L Carbon Dioxide (21-31) mmol/L BUN (6.0-23.0) mg/dL Creatinine (0.6-1.5) mg/dL Est Cr Clr Drug Dosing mL/min Estimated GFR (MDRD) ml/min Glucose (60-110) mg/dL POC Glucose 363 H 364 H 294 H (60-110) mg/dL Calcium (8.8-10.8) mg/dL Total Bilirubin (0.1-1.5) mg/dL AST (5-40) IU/L ALT (8-54) IU/L Alkaline Phosphatase (40-150) Total Protein (6.0-8.0) g/dL Albumin (3.4-4.8) g/dL Globulin (2.0-3.5) g/dL Albumin/Globulin Ratio (1.3-2.8) Hepatitis A IgM Ab (NR) Hep Bs Antigen (NR) Hep B Core IgM Ab (NR) Hepatitis C Antibody (NR) Hepatitis Interpret Blood Type 11/01/17 11/01/17 11/01/17 Range/Units 02:33 03:49 05:04 WBC (4.0-11.0) K/uL RBC (4.50-5.90) M/uL Hgb (13.0-17.0) g/dL Hct (38.0-50.0) % MCV (80.0-98.0) fL MCH (27.0-32.0) pg MCHC (31.0-37.0) g/dL RDW Std Deviation (28.0-62.0) fl RDW Coeff of Lb (11.0-15.0) % Plt Count (150-400) K/uL Neut % (Auto) (48.0-80.0) % Lymph % (Auto) (16.0-40.0) % Elk % (Auto) (0.0-15.0) % Eos % (Auto) (0.0-7.0) % Baso % (Auto) (0.0-1.5) % Neut # (Auto) (1.4-5.7) K/uL Lymph # (Auto) (0.6-2.4) K/uL Elk # (Auto) (0.0-0.8) K/uL Eos # (Auto) (0.0-0.7) K/uL Baso # (Auto) (0.0-0.1) K/uL Nucleated RBC % /100WBC Nucleated RBCs # K/uL Sodium (136-146) mmol/L Potassium (3.5-5.1) mmol/L Chloride (98-110) mmol/L Carbon Dioxide (21-31) mmol/L BUN (6.0-23.0) mg/dL Creatinine (0.6-1.5) mg/dL Est Cr Clr Drug Dosing mL/min Estimated GFR (MDRD) ml/min Glucose (60-110) mg/dL POC Glucose 259 H 264 H 273 H (60-110) mg/dL Calcium (8.8-10.8) mg/dL Total Bilirubin (0.1-1.5) mg/dL AST (5-40) IU/L ALT (8-54) IU/L Alkaline Phosphatase (40-150) Total Protein (6.0-8.0) g/dL Albumin (3.4-4.8) g/dL Globulin (2.0-3.5) g/dL Albumin/Globulin Ratio (1.3-2.8) Hepatitis A IgM Ab (NR) Hep Bs Antigen (NR) Hep B Core IgM Ab (NR) Hepatitis C Antibody (NR) Hepatitis Interpret Blood Type 11/01/17 11/01/17 11/01/17 Range/Units 05:59 06:25 06:25 WBC 5.85 (4.0-11.0) K/uL RBC 4.87 (4.50-5.90) M/uL Hgb 11.8 L (13.0-17.0) g/dL Hct 37.4 L (38.0-50.0) % MCV 76.8 L (80.0-98.0) fL MCH 24.2 L (27.0-32.0) pg MCHC 31.6 (31.0-37.0) g/dL RDW Std Deviation 50.1 (28.0-62.0) fl RDW Coeff of Lb 18 H (11.0-15.0) % Plt Count 28 L (150-400) K/uL Neut % (Auto) 80.7 H (48.0-80.0) % Lymph % (Auto) 8.9 L (16.0-40.0) % Elk % (Auto) 10.4 (0.0-15.0) % Eos % (Auto) 0.0 (0.0-7.0) % Baso % (Auto) 0.0 (0.0-1.5) % Neut # (Auto) 4.7 (1.4-5.7) K/uL Lymph # (Auto) 0.5 L (0.6-2.4) K/uL Elk # (Auto) 0.6 (0.0-0.8) K/uL Eos # (Auto) 0.0 (0.0-0.7) K/uL Baso # (Auto) 0.0 (0.0-0.1) K/uL Nucleated RBC % 0.5 /100WBC Nucleated RBCs # 0 K/uL Sodium (136-146) mmol/L Potassium (3.5-5.1) mmol/L Chloride (98-110) mmol/L Carbon Dioxide (21-31) mmol/L BUN (6.0-23.0) mg/dL Creatinine (0.6-1.5) mg/dL Est Cr Clr Drug Dosing mL/min Estimated GFR (MDRD) ml/min Glucose (60-110) mg/dL POC Glucose 260 H (60-110) mg/dL Calcium (8.8-10.8) mg/dL Total Bilirubin (0.1-1.5) mg/dL AST (5-40) IU/L ALT (8-54) IU/L Alkaline Phosphatase (40-150) Total Protein (6.0-8.0) g/dL Albumin (3.4-4.8) g/dL Globulin (2.0-3.5) g/dL Albumin/Globulin Ratio (1.3-2.8) Hepatitis A IgM Ab (NR) Hep Bs Antigen (NR) Hep B Core IgM Ab (NR) Hepatitis C Antibody (NR) Hepatitis Interpret Blood Type A POSITIVE 11/01/17 11/01/17 Range/Units 06:25 07:34 WBC (4.0-11.0) K/uL RBC (4.50-5.90) M/uL Hgb (13.0-17.0) g/dL Hct (38.0-50.0) % MCV (80.0-98.0) fL MCH (27.0-32.0) pg MCHC (31.0-37.0) g/dL RDW Std Deviation (28.0-62.0) fl RDW Coeff of Lb (11.0-15.0) % Plt Count (150-400) K/uL Neut % (Auto) (48.0-80.0) % Lymph % (Auto) (16.0-40.0) % Elk % (Auto) (0.0-15.0) % Eos % (Auto) (0.0-7.0) % Baso % (Auto) (0.0-1.5) % Neut # (Auto) (1.4-5.7) K/uL Lymph # (Auto) (0.6-2.4) K/uL Elk # (Auto) (0.0-0.8) K/uL Eos # (Auto) (0.0-0.7) K/uL Baso # (Auto) (0.0-0.1) K/uL Nucleated RBC % /100WBC Nucleated RBCs # K/uL Sodium 136 (136-146) mmol/L Potassium 4.8 (3.5-5.1) mmol/L Chloride 101 (98-110) mmol/L Carbon Dioxide 27 (21-31) mmol/L BUN 44 H (6.0-23.0) mg/dL Creatinine 1.4 (0.6-1.5) mg/dL Est Cr Clr Drug Dosing 61.25 mL/min Estimated GFR (MDRD) 50.0 ml/min Glucose 276 H (60-110) mg/dL POC Glucose 238 H (60-110) mg/dL Calcium 7.8 L (8.8-10.8) mg/dL Total Bilirubin 0.6 (0.1-1.5) mg/dL AST 17 (5-40) IU/L ALT 42 (8-54) IU/L Alkaline Phosphatase 64 (40-150) Total Protein 6.4 (6.0-8.0) g/dL Albumin 3.6 (3.4-4.8) g/dL Globulin 2.8 (2.0-3.5) g/dL Albumin/Globulin Ratio 1.3 (1.3-2.8) Hepatitis A IgM Ab (NR) Hep Bs Antigen (NR) Hep B Core IgM Ab (NR) Hepatitis C Antibody (NR) Hepatitis Interpret Blood Type Med Orders - Current: Current Medications Acetaminophen (Tylenol) 650 mg PO Q4H PRN PRN Reason: Pain (Mild 1-3)/fever Last Admin: 10/27/17 11:36 Dose: 650 mg Hydrocodone Bitart/Acetaminophen ([place] 325-5 Mg) 2 tab PO Q4H PRN PRN Reason: Pain (moderate 4-6) Last Admin: 11/01/17 08:14 Dose: 2 tab Diphenhydramine HCl (Benadryl) 25 mg IVPUSH Q6H PRN PRN Reason: Itching Last Admin: 10/30/17 06:47 Dose: 25 mg Folic Acid (Folic Acid) 1 mg PO BEDTIME [facility]ENCE Last Admin: 10/31/17 20:07 Dose: 1 mg Hydroxyzine HCl (Atarax) 25 mg PO Q6H PRN PRN Reason: Itching Last Admin: 10/31/17 08:14 Dose: 25 mg Ceftriaxone Sodium/Dextrose 1 (gm/ Premix) 50 mls @ 200 mls/hr IV Q24H [facility] Last Admin: 10/31/17 12:02 Dose: 200 mls/hr Insulin Human Regular 100 unit (/ Sodium Chloride) 100 mls @ 4 mls/hr IV TITRATE ESSENCE; 4 UNIT/HR PRN Reason: Protocol Last Titration: 11/01/17 08:31 Dose: 4 unit/hr, 4 mls/hr Insulin Glargine (Lantus Solostar) 60 units SUBCUT BID [facility] Last Admin: 11/01/17 08:14 Dose: 60 units Morphine Sulfate (Morphine) 2 mg IVPUSH Q2H PRN PRN Reason: Pain (severe 7-10) Last Admin: 11/01/17 05:57 Dose: 2 mg Permethrin 5% Cram (Own Med) 1 each TOP Q2D [facility] Last Admin: 10/30/17 20:21 Dose: 1 each Non-Formulary Medication (Nf Drug) 10 each PO 11/02/17@1900 [facility] Stop: 11/02/17 19:01 Ondansetron HCl (Zofran Odt) 4 mg PO Q4H PRN PRN Reason: nausea, able to take PO Ondansetron HCl (Zofran) 4 mg IVPUSH Q4H PRN PRN Reason: Nausea Polyethylene Glycol (Miralax) 17 gm PO BID [facility] Last Admin: 10/31/17 20:45 Dose: Not Given Senna/Docusate Sodium (Senna Plus) 1 tab PO DAILY PRN PRN Reason: Constipation Last Admin: 10/28/17 09:27 Dose: 1 tab Sodium Chloride (Saline Flush) 10 ml FLUSH ASDIRECTED PRN PRN Reason: Keep Vein Open Last Admin: 10/26/17 11:59 Dose: 10 ml Sodium Chloride (Saline Flush) 2.5 ml FLUSH ASDIRECTED PRN PRN Reason: Keep Vein Open Last Admin: 10/26/17 11:59 Dose: 2.5 ml Discontinued Medications Calcium Carbonate/Glycine (Tums) 1,000 mg PO ONETIME ONE Stop: 10/27/17 08:44 Last Admin: 10/27/17 09:51 Dose: 1,000 mg Calcium Carbonate/Glycine (Tums) 1,000 mg PO ONETIME ONE Stop: 10/28/17 08:34 Last Admin: 10/28/17 09:25 Dose: 1,000 mg Dexamethasone (Dexamethasone) 40 mg PO DAILY [facility] Last Admin: 10/31/17 08:09 Dose: 40 mg Enoxaparin Sodium (Lovenox) 40 mg SUBCUT Q24H [facility] Last Admin: 10/26/17 15:59 Dose: 40 mg Furosemide (Lasix) 40 mg IVPUSH NOW ONE Stop: 10/28/17 08:35 Last Admin: 10/28/17 09:25 Dose: 40 mg Furosemide (Lasix) 40 mg IVPUSH ONETIME ONE Stop: 10/30/17 11:01 Last Admin: 10/30/17 11:19 Dose: 40 mg Furosemide (Lasix) 40 mg IVPUSH NOW ONE Stop: 10/31/17 09:31 Furosemide (Lasix) 40 mg IVPUSH NOW ONE Stop: 10/31/17 08:36 Last Admin: 10/31/17 09:01 Dose: 40 mg Heparin Sodium (Porcine) (Heparin Sodium) 5,000 units SUBCUT Q8H [facility] Last Admin: 10/26/17 18:18 Dose: Not Given Ceftriaxone Sodium/Dextrose 1 (gm/ Premix) 50 mls @ 100 mls/hr IV ONETIME ONE Stop: 10/26/17 13:53 Last Admin: 10/26/17 13:35 Dose: 100 mls/hr Vancomycin HCl 1,750 mg/ (Sodium Chloride) 500 mls @ 250 mls/hr IV Q12H [facility] Last Admin: 10/27/17 16:42 Dose: 250 mls/hr Vancomycin HCl 1,750 mg/ (Sodium Chloride) 500 mls @ 250 mls/hr IV Q12H [facility] Last Admin: 10/28/17 13:58 Dose: Not Given Vancomycin HCl 2,000 mg/ (Sodium Chloride) 500 mls @ 250 mls/hr IV Q24H [facility] Last Admin: 10/28/17 16:49 Dose: 250 mls/hr Sodium Chloride (Normal Saline) 500 mls @ 250 mls/hr IV .BOLUS ONE Stop: 10/30/17 11:18 Last Admin: 10/30/17 09:55 Dose: 250 mls/hr Sodium Chloride (Normal Saline) 500 mls @ 250 mls/hr IV .BOLUS ONE Stop: 10/31/17 10:29 Last Admin: 10/31/17 09:00 Dose: 250 mls/hr Insulin Aspart (Novolog) 0 unit SUBCUT TIDAC [facility] PRN Reason: Protocol Last Admin: 10/31/17 07:40 Dose: Not Given Insulin Aspart (Novolog) 15 unit SUBCUT ONETIME ONE Stop: 10/29/17 08:10 Last Admin: 10/29/17 08:42 Dose: 15 unit Insulin Aspart (Novolog) 15 unit SUBCUT ONETIME ONE Stop: 10/29/17 15:37 Last Admin: 10/29/17 15:47 Dose: 15 unit Insulin Aspart (Novolog) 15 unit SUBCUT ONETIME ONE Stop: 10/29/17 21:35 Last Admin: 10/29/17 21:45 Dose: 15 units Insulin Aspart (Novolog) 20 unit SUBCUT ONETIME ONE Stop: 10/30/17 01:48 Last Admin: 10/30/17 02:09 Dose: 20 units Insulin Glargine (Lantus Solostar) 60 units SUBCUT DAILY [facility] Last Admin: 10/30/17 10:08 Dose: 60 unit Lidocaine (Xylocaine-Mpf 2%) Confirm Administered Dose 5 ml .ROUTE .STK-MED ONE Stop: 10/27/17 21:22 Last Admin: 10/27/17 22:30 Dose: Not Given Morphine Sulfate (Morphine) 4 mg IVPUSH ONETIME ONE Stop: 10/26/17 13:10 Last Admin: 10/26/17 13:34 Dose: 4 mg Morphine Sulfate (Morphine) 2 mg IVPUSH Q2H PRN PRN Reason: Pain (severe 7-10) Stop: 10/27/17 14:15 Ivermectin 3mg Own (Med) 30,000 each PO ONETIME ESSENCE Ivermectin 3mg Own (Med) 30,000 each PO ONETIME ONE Stop: 10/26/17 19:01 Last Admin: 10/26/17 20:50 Dose: 30,000 each Ivermectin 3mg Own (Med) 8 each PO ONETIME ONE Stop: 10/27/17 19:01 Last Admin: 10/27/17 19:36 Dose: Not Given Ivermectin 3mg Own (Med) 30,000 each PO ONETIME ONE Stop: 10/26/17 19:01 Last Admin: 10/27/17 07:22 Dose: Not Given Ivermectin 3 Mg 10 each PO ONETIME ONE Stop: 10/27/17 19:01 Last Admin: 10/27/17 19:27 Dose: 10 each Ivermectin 3 Mg (Tablets) 7 each PO ONETIME ONE Stop: 10/28/17 12:46 Last Admin: 10/28/17 12:41 Dose: 7 each Ondansetron HCl (Zofran) 4 mg IVPUSH ONETIME ONE Stop: 10/26/17 13:10 Last Admin: 10/26/17 13:34 Dose: 4 mg Vancomycin HCl (Pharmacy To Dose - Vancomycin) 1 dose .XX ASDIRECTED ESSENCE - Exam General: Cooperative HEENT: Mucous Membr. Moist/[place] Neck: Supple Cardiovascular: Regular Rate, Regular Rhythm GI/Abdominal Exam: Normal Bowel Sounds, Soft, Non-Tender, No Distention Extremities: Normal Capillary Refill, Pedal Edema Wound/Incisions: Dressing Dry and Intact, No Drainage, Erythema - Problem List Review Problem List Initiated/Reviewed/Updated: Yes - My Orders Last 24 Hours: My Active Orders 10/31/17 11:13 Consult to Wound Care Services [CONS] Routine 10/31/17 15:17 ABO/RH TYPE [BBK] Routine PLATELETS [facility] [BBK] Routine 10/31/17 15:23 Communication Order [RC] ROUTINE 11/02/17 05:11 CBC WITH AUTO DIFF [HEME] AM CMP [COMPREHENSIVE METABOLIC PN,CMP] [CHEM] AM 11/03/17 05:11 CBC WITH AUTO DIFF [HEME] AM CMP [COMPREHENSIVE METABOLIC PN,CMP] [CHEM] AM 11/04/17 05:11 CBC WITH AUTO DIFF [HEME] AM CMP [COMPREHENSIVE METABOLIC PN,CMP] [CHEM] AM 11/05/17 05:11 CBC WITH AUTO DIFF [HEME] AM CMP [COMPREHENSIVE METABOLIC PN,CMP] [CHEM] AM 11/06/17 05:11 CBC WITH AUTO DIFF [HEME] AM CMP [COMPREHENSIVE METABOLIC PN,CMP] [CHEM] AM 11/07/17 05:11 CBC WITH AUTO DIFF [HEME] AM CMP [COMPREHENSIVE METABOLIC PN,CMP] [CHEM] AM 11/08/17 05:11 CBC WITH AUTO DIFF [HEME] AM CMP [COMPREHENSIVE METABOLIC PN,CMP] [CHEM] AM 11/09/17 05:11 CBC WITH AUTO DIFF [HEME] AM CMP [COMPREHENSIVE METABOLIC PN,CMP] [CHEM] AM - Plan Plan:: 72 yo male admitted 10/26/16 for bilateral lower leg cullulitis with pmh of chronic venous insufficiency, type II diabetes, and pedal edema. #Cellulitis, BL lower extremities, improving -currently on Rocephin, BC NGTD, no leukocytosis plan: -continue Rocephin #IDDM, Uncontrolled -A1C 8.6% -on Insulin drip, glucose ranging 200-350 plan: -continue insulin drip #hyperglycemia -likely also exacerbated by Methylprednisolone administration -Methylprednisolone complete therefore will DC -plan as per above #BL Pedal Edema -echo obtained but no evidence of CHF -improving with Lasix plan -continue Lasix as tolerated #Thrombocytopenia -Platelets ranging from 20-35k, minimal bleeding present -Peripheral smear noncontributory -ordered HIV, Hep C, TSH, Vit B, Folate levels and will -completed methylpred 40 mg PO QD for 5 days plan -transfuse platelets #Hyperkalemia, corrected #NILS, improving -Cr normalized, GFR improved -continue to monitor #Increased TSH -patient likely has untreated hypothyroidism and/or severe subclinical hypothyroidism -FT4 normal, awaiting total t3 VTE: SCD dispo: 2-5 days
[2017-11-01] MEDS: Polyethylene Glycol 3350 Powder 17 GM Packet PO SCH ×3 (09:45→20:49)
[2017-11-01] MEDS: hydrOXYzine HCl 25 MG Tab PO PRN (09:54)
[2017-11-01] MEDS ORDERED: Insulin Glargine,Human Rec. Analog 100 Units/ML 3 ML Pen SUBCUT STA (10:50)
[2017-11-01] MEDS ORDERED: Furosemide 40 MG/4 ML VIAL IVPUSH ONE (11:17)
[2017-11-01] MEDS: cefTRIAXone 1 GM in Premix Bag 1 BAG IV SCH (14:46)
[2017-11-01] MEDS: Folic Acid 1 MG Tab PO SCH (20:47)
[2017-11-01] MEDS: PERMETHRIN 5% TOP SCH (20:47)
[2017-11-02] MEDS: Hydrochlorothiazide 25 MG Tab PO SCH (00:33)
[2017-11-02] MEDS: Acetaminophen/HYDROcodone 325-5 MG Tab PO PRN ×4 (01:32→21:28)
[2017-11-02] MEDS: hydrOXYzine HCl 25 MG Tab PO PRN (02:27)
[2017-11-02] MEDS: Morphine 2 MG/ML Syringe IVPUSH PRN (03:32)
[2017-11-02] MEDS: diphenhydrAMINE 50 MG/ML SDV IVPUSH PRN ×2 (07:49→21:28)
[2017-11-02] MEDS: Insulin Glargine,Human Rec. Analog 100 Units/ML 3 ML Pen SUBCUT SCH ×2 (09:21→21:22)
[2017-11-02] MEDS: Polyethylene Glycol 3350 Powder 17 GM Packet PO SCH ×2 (09:25→21:21)
[2017-11-02] MEDS ORDERED: Furosemide 40 MG/4 ML VIAL IVPUSH ONE (10:11)
--- NOTE | 2017-11-02 10:22 | PCM.PN ---
- Review of Systems Systems Review Comment:: rash of lower legs and swelling improving. - Patient Data Vitals - Most Recent: Last Vital Signs Temp 36.3 C 11/02/17 09:00 Pulse 52 L 11/02/17 09:00 Resp 16 11/02/17 09:00 BP 200/90 H 11/02/17 09:00 Pulse Ox 95 11/02/17 09:00 Weight - Most Recent: 171.957 kg I&O - Last 24 Hours: Intake & Output 11/01/17 11/02/17 11/02/17 22:59 06:59 14:59 Intake Total 1085 1200 Output Total 2795 625 Balance -8360 575 Lab Results Last 24 Hours: Laboratory Results - last 24 hr 11/01/17 11/01/17 11/01/17 Range/Units 06:25 10:18 10:50 WBC (4.0-11.0) K/uL RBC (4.50-5.90) M/uL Hgb (13.0-17.0) g/dL Hct (38.0-50.0) % MCV (80.0-98.0) fL MCH (27.0-32.0) pg MCHC (31.0-37.0) g/dL RDW Std Deviation (28.0-62.0) fl RDW Coeff of Lb (11.0-15.0) % Plt Count (150-400) K/uL Neut % (Auto) (48.0-80.0) % Lymph % (Auto) (16.0-40.0) % [place] % (Auto) (0.0-15.0) % Eos % (Auto) (0.0-7.0) % Baso % (Auto) (0.0-1.5) % Neut # (Auto) (1.4-5.7) K/uL Lymph # (Auto) (0.6-2.4) K/uL [place] # (Auto) (0.0-0.8) K/uL Eos # (Auto) (0.0-0.7) K/uL Baso # (Auto) (0.0-0.1) K/uL Nucleated RBC % /100WBC Nucleated RBCs # K/uL Sodium (136-146) mmol/L Potassium (3.5-5.1) mmol/L Chloride (98-110) mmol/L Carbon Dioxide (21-31) mmol/L BUN (6.0-23.0) mg/dL Creatinine (0.6-1.5) mg/dL Est Cr Clr Drug Dosing mL/min Estimated GFR (MDRD) ml/min Glucose (60-110) mg/dL POC Glucose 214 H 212 H (60-110) mg/dL Calcium (8.8-10.8) mg/dL Total Bilirubin (0.1-1.5) mg/dL AST (5-40) IU/L ALT (8-54) IU/L Alkaline Phosphatase (40-150) Total Protein (6.0-8.0) g/dL Albumin (3.4-4.8) g/dL Globulin (2.0-3.5) g/dL Albumin/Globulin Ratio (1.3-2.8) Blood Type A POSITIVE 11/01/17 11/01/17 11/01/17 Range/Units 11:58 13:57 14:57 WBC (4.0-11.0) K/uL RBC (4.50-5.90) M/uL Hgb (13.0-17.0) g/dL Hct (38.0-50.0) % MCV (80.0-98.0) fL MCH (27.0-32.0) pg MCHC (31.0-37.0) g/dL RDW Std Deviation (28.0-62.0) fl RDW Coeff of Lb (11.0-15.0) % Plt Count (150-400) K/uL Neut % (Auto) (48.0-80.0) % Lymph % (Auto) (16.0-40.0) % [place] % (Auto) (0.0-15.0) % Eos % (Auto) (0.0-7.0) % Baso % (Auto) (0.0-1.5) % Neut # (Auto) (1.4-5.7) K/uL Lymph # (Auto) (0.6-2.4) K/uL [place] # (Auto) (0.0-0.8) K/uL Eos # (Auto) (0.0-0.7) K/uL Baso # (Auto) (0.0-0.1) K/uL Nucleated RBC % /100WBC Nucleated RBCs # K/uL Sodium (136-146) mmol/L Potassium (3.5-5.1) mmol/L Chloride (98-110) mmol/L Carbon Dioxide (21-31) mmol/L BUN (6.0-23.0) mg/dL Creatinine (0.6-1.5) mg/dL Est Cr Clr Drug Dosing mL/min Estimated GFR (MDRD) ml/min Glucose (60-110) mg/dL POC Glucose 208 H 270 H 277 H (60-110) mg/dL Calcium (8.8-10.8) mg/dL Total Bilirubin (0.1-1.5) mg/dL AST (5-40) IU/L ALT (8-54) IU/L Alkaline Phosphatase (40-150) Total Protein (6.0-8.0) g/dL Albumin (3.4-4.8) g/dL Globulin (2.0-3.5) g/dL Albumin/Globulin Ratio (1.3-2.8) Blood Type 11/01/17 11/01/17 11/01/17 Range/Units 15:35 15:46 17:24 WBC 8.09 (4.0-11.0) K/uL RBC 4.95 (4.50-5.90) M/uL Hgb 12.0 L (13.0-17.0) g/dL Hct 37.8 L (38.0-50.0) % MCV 76.4 L (80.0-98.0) fL MCH 24.2 L (27.0-32.0) pg MCHC 31.7 (31.0-37.0) g/dL RDW Std Deviation 49.8 (28.0-62.0) fl RDW Coeff of Lb 18 H (11.0-15.0) % Plt Count 25 L (150-400) K/uL Neut % (Auto) 79.1 (48.0-80.0) % Lymph % (Auto) 10.5 L (16.0-40.0) % [place] % (Auto) 10.3 (0.0-15.0) % Eos % (Auto) 0.0 (0.0-7.0) % Baso % (Auto) 0.1 (0.0-1.5) % Neut # (Auto) 6.4 H (1.4-5.7) K/uL Lymph # (Auto) 0.9 (0.6-2.4) K/uL [place] # (Auto) 0.8 (0.0-0.8) K/uL Eos # (Auto) 0.0 (0.0-0.7) K/uL Baso # (Auto) 0.0 (0.0-0.1) K/uL Nucleated RBC % 0.0 /100WBC Nucleated RBCs # 0 K/uL Sodium (136-146) mmol/L Potassium (3.5-5.1) mmol/L Chloride (98-110) mmol/L Carbon Dioxide (21-31) mmol/L BUN (6.0-23.0) mg/dL Creatinine (0.6-1.5) mg/dL Est Cr Clr Drug Dosing mL/min Estimated GFR (MDRD) ml/min Glucose (60-110) mg/dL POC Glucose 281 H 202 H (60-110) mg/dL Calcium (8.8-10.8) mg/dL Total Bilirubin (0.1-1.5) mg/dL AST (5-40) IU/L ALT (8-54) IU/L Alkaline Phosphatase (40-150) Total Protein (6.0-8.0) g/dL Albumin (3.4-4.8) g/dL Globulin (2.0-3.5) g/dL Albumin/Globulin Ratio (1.3-2.8) Blood Type 11/01/17 11/01/17 11/01/17 Range/Units 18:27 19:24 20:48 WBC (4.0-11.0) K/uL RBC (4.50-5.90) M/uL Hgb (13.0-17.0) g/dL Hct (38.0-50.0) % MCV (80.0-98.0) fL MCH (27.0-32.0) pg MCHC (31.0-37.0) g/dL RDW Std Deviation (28.0-62.0) fl RDW Coeff of Lb (11.0-15.0) % Plt Count (150-400) K/uL Neut % (Auto) (48.0-80.0) % Lymph % (Auto) (16.0-40.0) % [place] % (Auto) (0.0-15.0) % Eos % (Auto) (0.0-7.0) % Baso % (Auto) (0.0-1.5) % Neut # (Auto) (1.4-5.7) K/uL Lymph # (Auto) (0.6-2.4) K/uL [place] # (Auto) (0.0-0.8) K/uL Eos # (Auto) (0.0-0.7) K/uL Baso # (Auto) (0.0-0.1) K/uL Nucleated RBC % /100WBC Nucleated RBCs # K/uL Sodium (136-146) mmol/L Potassium (3.5-5.1) mmol/L Chloride (98-110) mmol/L Carbon Dioxide (21-31) mmol/L BUN (6.0-23.0) mg/dL Creatinine (0.6-1.5) mg/dL Est Cr Clr Drug Dosing mL/min Estimated GFR (MDRD) ml/min Glucose (60-110) mg/dL POC Glucose 270 H 345 H 275 H (60-110) mg/dL Calcium (8.8-10.8) mg/dL Total Bilirubin (0.1-1.5) mg/dL AST (5-40) IU/L ALT (8-54) IU/L Alkaline Phosphatase (40-150) Total Protein (6.0-8.0) g/dL Albumin (3.4-4.8) g/dL Globulin (2.0-3.5) g/dL Albumin/Globulin Ratio (1.3-2.8) Blood Type 11/01/17 11/01/17 11/01/17 Range/Units 21:20 22:15 23:12 WBC (4.0-11.0) K/uL RBC (4.50-5.90) M/uL Hgb (13.0-17.0) g/dL Hct (38.0-50.0) % MCV (80.0-98.0) fL MCH (27.0-32.0) pg MCHC (31.0-37.0) g/dL RDW Std Deviation (28.0-62.0) fl RDW Coeff of Lb (11.0-15.0) % Plt Count (150-400) K/uL Neut % (Auto) (48.0-80.0) % Lymph % (Auto) (16.0-40.0) % [place] % (Auto) (0.0-15.0) % Eos % (Auto) (0.0-7.0) % Baso % (Auto) (0.0-1.5) % Neut # (Auto) (1.4-5.7) K/uL Lymph # (Auto) (0.6-2.4) K/uL [place] # (Auto) (0.0-0.8) K/uL Eos # (Auto) (0.0-0.7) K/uL Baso # (Auto) (0.0-0.1) K/uL Nucleated RBC % /100WBC Nucleated RBCs # K/uL Sodium (136-146) mmol/L Potassium (3.5-5.1) mmol/L Chloride (98-110) mmol/L Carbon Dioxide (21-31) mmol/L BUN (6.0-23.0) mg/dL Creatinine (0.6-1.5) mg/dL Est Cr Clr Drug Dosing mL/min Estimated GFR (MDRD) ml/min Glucose (60-110) mg/dL POC Glucose 248 H 226 H 206 H (60-110) mg/dL Calcium (8.8-10.8) mg/dL Total Bilirubin (0.1-1.5) mg/dL AST (5-40) IU/L ALT (8-54) IU/L Alkaline Phosphatase (40-150) Total Protein (6.0-8.0) g/dL Albumin (3.4-4.8) g/dL Globulin (2.0-3.5) g/dL Albumin/Globulin Ratio (1.3-2.8) Blood Type 11/02/17 11/02/17 11/02/17 Range/Units 00:35 01:31 02:19 WBC (4.0-11.0) K/uL RBC (4.50-5.90) M/uL Hgb (13.0-17.0) g/dL Hct (38.0-50.0) % MCV (80.0-98.0) fL MCH (27.0-32.0) pg MCHC (31.0-37.0) g/dL RDW Std Deviation (28.0-62.0) fl RDW Coeff of Lb (11.0-15.0) % Plt Count (150-400) K/uL Neut % (Auto) (48.0-80.0) % Lymph % (Auto) (16.0-40.0) % [place] % (Auto) (0.0-15.0) % Eos % (Auto) (0.0-7.0) % Baso % (Auto) (0.0-1.5) % Neut # (Auto) (1.4-5.7) K/uL Lymph # (Auto) (0.6-2.4) K/uL [place] # (Auto) (0.0-0.8) K/uL Eos # (Auto) (0.0-0.7) K/uL Baso # (Auto) (0.0-0.1) K/uL Nucleated RBC % /100WBC Nucleated RBCs # K/uL Sodium (136-146) mmol/L Potassium (3.5-5.1) mmol/L Chloride (98-110) mmol/L Carbon Dioxide (21-31) mmol/L BUN (6.0-23.0) mg/dL Creatinine (0.6-1.5) mg/dL Est Cr Clr Drug Dosing mL/min Estimated GFR (MDRD) ml/min Glucose (60-110) mg/dL POC Glucose 182 H 189 H 134 H (60-110) mg/dL Calcium (8.8-10.8) mg/dL Total Bilirubin (0.1-1.5) mg/dL AST (5-40) IU/L ALT (8-54) IU/L Alkaline Phosphatase (40-150) Total Protein (6.0-8.0) g/dL Albumin (3.4-4.8) g/dL Globulin (2.0-3.5) g/dL Albumin/Globulin Ratio (1.3-2.8) Blood Type 11/02/17 11/02/1711/02/18 Range/Units 03:17 04:12 04:59 WBC (4.0-11.0) K/uL RBC (4.50-5.90) M/uL Hgb (13.0-17.0) g/dL Hct (38.0-50.0) % MCV (80.0-98.0) fL MCH (27.0-32.0) pg MCHC (31.0-37.0) g/dL RDW Std Deviation (28.0-62.0) fl RDW Coeff of Lb (11.0-15.0) % Plt Count (150-400) K/uL Neut % (Auto) (48.0-80.0) % Lymph % (Auto) (16.0-40.0) % [place] % (Auto) (0.0-15.0) % Eos % (Auto) (0.0-7.0) % Baso % (Auto) (0.0-1.5) % Neut # (Auto) (1.4-5.7) K/uL Lymph # (Auto) (0.6-2.4) K/uL [place] # (Auto) (0.0-0.8) K/uL Eos # (Auto) (0.0-0.7) K/uL Baso # (Auto) (0.0-0.1) K/uL Nucleated RBC % /100WBC Nucleated RBCs # K/uL Sodium (136-146) mmol/L Potassium (3.5-5.1) mmol/L Chloride (98-110) mmol/L Carbon Dioxide (21-31) mmol/L BUN (6.0-23.0) mg/dL Creatinine (0.6-1.5) mg/dL Est Cr Clr Drug Dosing mL/min Estimated GFR (MDRD) ml/min Glucose (60-110) mg/dL POC Glucose 117 H 116 H 108 (60-110) mg/dL Calcium (8.8-10.8) mg/dL Total Bilirubin (0.1-1.5) mg/dL AST (5-40) IU/L ALT (8-54) IU/L Alkaline Phosphatase (40-150) Total Protein (6.0-8.0) g/dL Albumin (3.4-4.8) g/dL Globulin (2.0-3.5) g/dL Albumin/Globulin Ratio (1.3-2.8) Blood Type 11/02/17 11/02/17 11/02/17 Range/Units 05:54 05:54 06:07 WBC 8.86 (4.0-11.0) K/uL RBC 5.08 (4.50-5.90) M/uL Hgb 12.1 L (13.0-17.0) g/dL Hct 39.1 (38.0-50.0) % MCV 77.0 L (80.0-98.0) fL MCH 23.8 L (27.0-32.0) pg MCHC 30.9 L (31.0-37.0) g/dL RDW Std Deviation 50.7 (28.0-62.0) fl RDW Coeff of Lb 18 H (11.0-15.0) % Plt Count 29 L (150-400) K/uL Neut % (Auto) 68.7 (48.0-80.0) % Lymph % (Auto) 17.7 (16.0-40.0) % [place] % (Auto) 13.1 (0.0-15.0) % Eos % (Auto) 0.5 (0.0-7.0) % Baso % (Auto) 0.0 (0.0-1.5) % Neut # (Auto) 6.1 H (1.4-5.7) K/uL Lymph # (Auto) 1.6 (0.6-2.4) K/uL [place] # (Auto) 1.2 H (0.0-0.8) K/uL Eos # (Auto) 0.0 (0.0-0.7) K/uL Baso # (Auto) 0.0 (0.0-0.1) K/uL Nucleated RBC % 0.0 /100WBC Nucleated RBCs # 0 K/uL Sodium 139 (136-146) mmol/L Potassium 4.1 (3.5-5.1) mmol/L Chloride 101 (98-110) mmol/L Carbon Dioxide 28 (21-31) mmol/L BUN 44 H (6.0-23.0) mg/dL Creatinine 1.3 (0.6-1.5) mg/dL Est Cr Clr Drug Dosing 65.96 mL/min Estimated GFR (MDRD) 54.4 ml/min Glucose 100 (60-110) mg/dL POC Glucose 92 (60-110) mg/dL Calcium 7.7 L (8.8-10.8) mg/dL Total Bilirubin 0.6 (0.1-1.5) mg/dL AST 22 (5-40) IU/L ALT 38 (8-54) IU/L Alkaline Phosphatase 57 (40-150) Total Protein 5.9 L (6.0-8.0) g/dL Albumin 3.4 (3.4-4.8) g/dL Globulin 2.5 (2.0-3.5) g/dL Albumin/Globulin Ratio 1.4 (1.3-2.8) Blood Type 11/02/17 Range/Units 06:27 WBC (4.0-11.0) K/uL RBC (4.50-5.90) M/uL Hgb (13.0-17.0) g/dL Hct (38.0-50.0) % MCV (80.0-98.0) fL MCH (27.0-32.0) pg MCHC (31.0-37.0) g/dL RDW Std Deviation (28.0-62.0) fl RDW Coeff of Lb (11.0-15.0) % Plt Count (150-400) K/uL Neut % (Auto) (48.0-80.0) % Lymph % (Auto) (16.0-40.0) % [place] % (Auto) (0.0-15.0) % Eos % (Auto) (0.0-7.0) % Baso % (Auto) (0.0-1.5) % Neut # (Auto) (1.4-5.7) K/uL Lymph # (Auto) (0.6-2.4) K/uL [place] # (Auto) (0.0-0.8) K/uL Eos # (Auto) (0.0-0.7) K/uL Baso # (Auto) (0.0-0.1) K/uL Nucleated RBC % /100WBC Nucleated RBCs # K/uL Sodium (136-146) mmol/L Potassium (3.5-5.1) mmol/L Chloride (98-110) mmol/L Carbon Dioxide (21-31) mmol/L BUN (6.0-23.0) mg/dL Creatinine (0.6-1.5) mg/dL Est Cr Clr Drug Dosing mL/min Estimated GFR (MDRD) ml/min Glucose (60-110) mg/dL POC Glucose 85 (60-110) mg/dL Calcium (8.8-10.8) mg/dL Total Bilirubin (0.1-1.5) mg/dL AST (5-40) IU/L ALT (8-54) IU/L Alkaline Phosphatase (40-150) Total Protein (6.0-8.0) g/dL Albumin (3.4-4.8) g/dL Globulin (2.0-3.5) g/dL Albumin/Globulin Ratio (1.3-2.8) Blood Type Med Orders - Current: Current Medications Acetaminophen (Tylenol) 650 mg PO Q4H PRN PRN Reason: Pain (Mild 1-3)/fever Last Admin: 10/27/17 11:36 Dose: 650 mg Hydrocodone Bitart/Acetaminophen (Ponce 325-5 Mg) 2 tab PO Q4H PRN PRN Reason: Pain (moderate 4-6) Last Admin: 11/02/17 09:25 Dose: 2 tab Diphenhydramine HCl (Benadryl) 25 mg IVPUSH Q6H PRN PRN Reason: Itching Last Admin: 11/02/17 07:49 Dose: 25 mg Folic Acid (Folic Acid) 1 mg PO BEDTIME [facility] Last Admin: 11/01/17 20:47 Dose: 1 mg Hydrochlorothiazide (Hydrochlorothiazide) 25 mg PO Q24H [facility] Last Admin: 11/02/17 00:33 Dose: 25 mg Hydroxyzine HCl (Atarax) 25 mg PO Q6H PRN PRN Reason: Itching Last Admin: 11/02/17 02:27 Dose: 25 mg Ceftriaxone Sodium/Dextrose 1 (gm/ Premix) 50 mls @ 200 mls/hr IV Q24H [facility] Last Admin: 11/01/17 14:46 Dose: 200 mls/hr Insulin Glargine (Lantus Solostar) 60 units SUBCUT BID [facility] Morphine Sulfate (Morphine) 2 mg IVPUSH Q2H PRN PRN Reason: Pain (severe 7-10) Last Admin: 11/02/17 03:32 Dose: 2 mg Permethrin 5% Cram (Own Med) 1 each TOP Q2D [facility] Last Admin: 11/01/17 20:47 Dose: 1 each Non-Formulary Medication (Nf Drug) 10 each PO 11/02/17@1900 [facility] Stop: 11/02/17 19:01 Ondansetron HCl (Zofran Odt) 4 mg PO Q4H PRN PRN Reason: nausea, able to take PO Ondansetron HCl (Zofran) 4 mg IVPUSH Q4H PRN PRN Reason: Nausea Polyethylene Glycol (Miralax) 17 gm PO BID [facility] Last Admin: 11/02/17 09:25 Dose: Not Given Senna/Docusate Sodium (Senna Plus) 1 tab PO DAILY PRN PRN Reason: Constipation Last Admin: 10/28/17 09:27 Dose: 1 tab Sodium Chloride (Saline Flush) 10 ml FLUSH ASDIRECTED PRN PRN Reason: Keep Vein Open Last Admin: 10/26/17 11:59 Dose: 10 ml Sodium Chloride (Saline Flush) 2.5 ml FLUSH ASDIRECTED PRN PRN Reason: Keep Vein Open Last Admin: 10/26/17 11:59 Dose: 2.5 ml Discontinued Medications Calcium Carbonate/Glycine (Tums) 1,000 mg PO ONETIME ONE Stop: 10/27/17 08:44 Last Admin: 10/27/17 09:51 Dose: 1,000 mg Calcium Carbonate/Glycine (Tums) 1,000 mg PO ONETIME ONE Stop: 10/28/17 08:34 Last Admin: 10/28/17 09:25 Dose: 1,000 mg Dexamethasone (Dexamethasone) 40 mg PO DAILY [facility] Last Admin: 10/31/17 08:09 Dose: 40 mg Enoxaparin Sodium (Lovenox) 40 mg SUBCUT Q24H [facility] Last Admin: 10/26/17 15:59 Dose: 40 mg Furosemide (Lasix) 40 mg IVPUSH NOW ONE Stop: 10/28/17 08:35 Last Admin: 10/28/17 09:25 Dose: 40 mg Furosemide (Lasix) 40 mg IVPUSH ONETIME ONE Stop: 10/30/17 11:01 Last Admin: 10/30/17 11:19 Dose: 40 mg Furosemide (Lasix) 40 mg IVPUSH NOW ONE Stop: 10/31/17 09:31 Furosemide (Lasix) 40 mg IVPUSH NOW ONE Stop: 10/31/17 08:36 Last Admin: 10/31/17 09:01 Dose: 40 mg Furosemide (Lasix) 40 mg IVPUSH NOW ONE Stop: 11/01/17 11:18 Last Admin: 11/01/17 12:44 Dose: 40 mg Heparin Sodium (Porcine) (Heparin Sodium) 5,000 units SUBCUT Q8H [facility] Last Admin: 10/26/17 18:18 Dose: Not Given Ceftriaxone Sodium/Dextrose 1 (gm/ Premix) 50 mls @ 100 mls/hr IV ONETIME ONE Stop: 10/26/17 13:53 Last Admin: 10/26/17 13:35 Dose: 100 mls/hr Vancomycin HCl 1,750 mg/ (Sodium Chloride) 500 mls @ 250 mls/hr IV Q12H [facility] Last Admin: 10/27/17 16:42 Dose: 250 mls/hr Vancomycin HCl 1,750 mg/ (Sodium Chloride) 500 mls @ 250 mls/hr IV Q12H [facility] Last Admin: 10/28/17 13:58 Dose: Not Given Vancomycin HCl 2,000 mg/ (Sodium Chloride) 500 mls @ 250 mls/hr IV Q24H [facility] Last Admin: 10/28/17 16:49 Dose: 250 mls/hr Sodium Chloride (Normal Saline) 500 mls @ 250 mls/hr IV .BOLUS ONE Stop: 10/30/17 11:18 Last Admin: 10/30/17 09:55 Dose: 250 mls/hr Insulin Human Regular 100 unit (/ Sodium Chloride) 100 mls @ 4 mls/hr IV TITRATE ESSENCE; 4 UNIT/HR PRN Reason: Protocol Last Titration: 11/02/17 07:39 Dose: 0 unit/hr, 0 mls/hr Sodium Chloride (Normal Saline) 500 mls @ 250 mls/hr IV .BOLUS ONE Stop: 10/31/17 10:29 Last Admin: 10/31/17 09:00 Dose: 250 mls/hr Insulin Aspart (Novolog) 0 unit SUBCUT TIDAC [facility] PRN Reason: Protocol Last Admin: 10/31/17 07:40 Dose: Not Given Insulin Aspart (Novolog) 15 unit SUBCUT ONETIME ONE Stop: 10/29/17 08:10 Last Admin: 10/29/17 08:42 Dose: 15 unit Insulin Aspart (Novolog) 15 unit SUBCUT ONETIME ONE Stop: 10/29/17 15:37 Last Admin: 10/29/17 15:47 Dose: 15 unit Insulin Aspart (Novolog) 15 unit SUBCUT ONETIME ONE Stop: 10/29/17 21:35 Last Admin: 10/29/17 21:45 Dose: 15 units Insulin Aspart (Novolog) 20 unit SUBCUT ONETIME ONE Stop: 10/30/17 01:48 Last Admin: 10/30/17 02:09 Dose: 20 units Insulin Glargine (Lantus Solostar) 60 units SUBCUT DAILY [facility] Last Admin: 10/30/17 10:08 Dose: 60 unit Insulin Glargine (Lantus Solostar) 60 units SUBCUT BID [facility] Last Admin: 11/01/17 08:14 Dose: 60 units Insulin Glargine (Lantus Solostar) 15 units SUBCUT NOW STA Stop: 11/01/17 10:51 Last Admin: 11/01/17 12:46 Dose: 15 unit Insulin Glargine (Lantus Solostar) 70 units SUBCUT BID [facility] Last Admin: 11/02/17 09:21 Dose: 60 units Lidocaine (Xylocaine-Mpf 2%) Confirm Administered Dose 5 ml .ROUTE .STK-MED ONE Stop: 10/27/17 21:22 Last Admin: 10/27/17 22:30 Dose: Not Given Morphine Sulfate (Morphine) 4 mg IVPUSH ONETIME ONE Stop: 10/26/17 13:10 Last Admin: 10/26/17 13:34 Dose: 4 mg Morphine Sulfate (Morphine) 2 mg IVPUSH Q2H PRN PRN Reason: Pain (severe 7-10) Stop: 10/27/17 14:15 Ivermectin 3mg Own (Med) 30,000 each PO ONETIME [facility] Ivermectin 3mg Own (Med) 30,000 each PO ONETIME ONE Stop: 10/26/17 19:01 Last Admin: 10/26/17 20:50 Dose: 30,000 each Ivermectin 3mg Own (Med) 8 each PO ONETIME ONE Stop: 10/27/17 19:01 Last Admin: 10/27/17 19:36 Dose: Not Given Ivermectin 3mg Own (Med) 30,000 each PO ONETIME ONE Stop: 10/26/17 19:01 Last Admin: 10/27/17 07:22 Dose: Not Given Ivermectin 3 Mg 10 each PO ONETIME ONE Stop: 10/27/17 19:01 Last Admin: 10/27/17 19:27 Dose: 10 each Ivermectin 3 Mg (Tablets) 7 each PO ONETIME ONE Stop: 10/28/17 12:46 Last Admin: 10/28/17 12:41 Dose: 7 each Ondansetron HCl (Zofran) 4 mg IVPUSH ONETIME ONE Stop: 10/26/17 13:10 Last Admin: 10/26/17 13:34 Dose: 4 mg Vancomycin HCl (Pharmacy To Dose - Vancomycin) 1 dose .XX ASDIRECTED ESSENCE - Exam General: Alert, Oriented Lungs: Clear to Auscultation, Normal Respiratory Effort Cardiovascular: Regular Rate, Regular Rhythm GI/Abdominal Exam: Soft, Non-Tender, No Distention Extremities: Pedal Edema (+2 edema), Other (large left superficial ulcer of right landaverde, lower extremity edema improving) - Problem List Review Problem List Initiated/Reviewed/Updated: Yes - My Orders Last 24 Hours: My Active Orders 11/02/17 00:30 Hydrochlorothiazide 25 mg PO Q24H 11/02/17 10:10 Insulin Glarg,Human.Rec.Analog [LantUS Solostar] 60 units SUBCUT BID - Plan Plan:: 72 yo male admitted 10/26/16 for bilateral lower leg cullulitis with pmh of chronic venous insufficiency, type II diabetes, and pedal edema. Cellulitis, BL lower extremities, improving, continue Rocephin Scabies: Continue Ivermectin and permethrin secondary to widespread involvement yesterday. Benadryl for pruritus. Contact precautions. IDDM, better controlled after stopping steroids, will d/c insulin drip and place on high dose sliding scale BL Pedal Edema continue lasix Thrombocytopenia: finished four days of high dose steroids, platelets 29 today NILS, improving Cr 1.3 today VTE: SCD dispo: discharge home Saturday
[2017-11-02] MEDS: cefTRIAXone 1 GM in Premix Bag 1 BAG IV SCH (12:29)
[2017-11-02] MEDS: Insulin Aspart 100 Units/ML 3 ML Pen SUBCUT SCH ×2 (12:51→16:41)
[2017-11-02] MEDS ORDERED: Non-Formulary Medication 1 Each PO SCH (19:00)
[2017-11-02] MEDS: Folic Acid 1 MG Tab PO SCH (21:21)
[2017-11-03] MEDS: Hydrochlorothiazide 25 MG Tab PO SCH (00:47)
[2017-11-03] MEDS: Insulin Aspart 100 Units/ML 3 ML Pen SUBCUT SCH ×3 (06:29→17:36)
[2017-11-03] MEDS: Insulin Glargine,Human Rec. Analog 100 Units/ML 3 ML Pen SUBCUT SCH ×2 (08:32→20:41)
[2017-11-03] MEDS: Polyethylene Glycol 3350 Powder 17 GM Packet PO SCH ×2 (08:36→20:44)
[2017-11-03] MEDS: cefTRIAXone 1 GM in Premix Bag 1 BAG IV SCH (11:48)
[2017-11-03] MEDS ORDERED: Furosemide 40 MG/4 ML VIAL IVPUSH ONE (12:58)
--- NOTE | 2017-11-03 13:02 | PCM.PN ---
- Review of Systems Systems Review Comment:: no new complaints - Patient Data Vitals - Most Recent: Last Vital Signs Temp 36.2 C 11/03/17 12:00 Pulse 52 L 11/03/17 12:00 Resp 16 11/03/17 12:00 BP 178/81 H 11/03/17 12:00 Pulse Ox 95 11/03/17 12:00 Weight - Most Recent: 165.969 kg I&O - Last 24 Hours: Intake & Output 11/02/17 11/03/17 11/03/17 22:59 06:59 14:59 Intake Total 740 340 50 Output Total 1075 650 Balance -335 -310 50 Lab Results Last 24 Hours: Laboratory Results - last 24 hr 11/02/17 11/02/17 11/02/17 Range/Units 13:26 16:20 21:19 WBC (4.0-11.0) K/uL RBC (4.50-5.90) M/uL Hgb (13.0-17.0) g/dL Hct (38.0-50.0) % MCV (80.0-98.0) fL MCH (27.0-32.0) pg MCHC (31.0-37.0) g/dL RDW Std Deviation (28.0-62.0) fl RDW Coeff of Lb (11.0-15.0) % Plt Count (150-400) K/uL Neut % (Auto) (48.0-80.0) % Lymph % (Auto) (16.0-40.0) % [place] % (Auto) (0.0-15.0) % Eos % (Auto) (0.0-7.0) % Baso % (Auto) (0.0-1.5) % Neut # (Auto) (1.4-5.7) K/uL Lymph # (Auto) (0.6-2.4) K/uL [place] # (Auto) (0.0-0.8) K/uL Eos # (Auto) (0.0-0.7) K/uL Baso # (Auto) (0.0-0.1) K/uL Nucleated RBC % /100WBC Nucleated RBCs # K/uL Sodium (136-146) mmol/L Potassium (3.5-5.1) mmol/L Chloride (98-110) mmol/L Carbon Dioxide (21-31) mmol/L BUN (6.0-23.0) mg/dL Creatinine (0.6-1.5) mg/dL Est Cr Clr Drug Dosing mL/min Estimated GFR (MDRD) ml/min Glucose (60-110) mg/dL POC Glucose 184 H 159 H 217 H (60-110) mg/dL Calcium (8.8-10.8) mg/dL Total Bilirubin (0.1-1.5) mg/dL AST (5-40) IU/L ALT (8-54) IU/L Alkaline Phosphatase (40-150) Total Protein (6.0-8.0) g/dL Albumin (3.4-4.8) g/dL Globulin (2.0-3.5) g/dL Albumin/Globulin Ratio (1.3-2.8) 11/03/17 11/03/17 11/03/17 Range/Units 05:30 05:30 06:27 WBC 9.53 (4.0-11.0) K/uL RBC 5.12 (4.50-5.90) M/uL Hgb 12.5 L (13.0-17.0) g/dL Hct 39.5 (38.0-50.0) % MCV 77.1 L (80.0-98.0) fL MCH 24.4 L (27.0-32.0) pg MCHC 31.6 (31.0-37.0) g/dL RDW Std Deviation 51.3 (28.0-62.0) fl RDW Coeff of Lb 18 H (11.0-15.0) % Plt Count 22 L (150-400) K/uL Neut % (Auto) 60.2 (48.0-80.0) % Lymph % (Auto) 21.6 (16.0-40.0) % [place] % (Auto) 11.4 (0.0-15.0) % Eos % (Auto) 6.8 (0.0-7.0) % Baso % (Auto) 0.0 (0.0-1.5) % Neut # (Auto) 5.7 (1.4-5.7) K/uL Lymph # (Auto) 2.1 (0.6-2.4) K/uL [place] # (Auto) 1.1 H (0.0-0.8) K/uL Eos # (Auto) 0.7 (0.0-0.7) K/uL Baso # (Auto) 0.0 (0.0-0.1) K/uL Nucleated RBC % 0.0 /100WBC Nucleated RBCs # 0 K/uL Sodium 138 (136-146) mmol/L Potassium 4.2 (3.5-5.1) mmol/L Chloride 101 (98-110) mmol/L Carbon Dioxide 27 (21-31) mmol/L BUN 48 H (6.0-23.0) mg/dL Creatinine 1.4 (0.6-1.5) mg/dL Est Cr Clr Drug Dosing 61.25 mL/min Estimated GFR (MDRD) 50.0 ml/min Glucose 167 H (60-110) mg/dL POC Glucose 139 H (60-110) mg/dL Calcium 7.6 L (8.8-10.8) mg/dL Total Bilirubin 0.5 (0.1-1.5) mg/dL AST 17 (5-40) IU/L ALT 33 (8-54) IU/L Alkaline Phosphatase 55 (40-150) Total Protein 5.9 L (6.0-8.0) g/dL Albumin 3.4 (3.4-4.8) g/dL Globulin 2.5 (2.0-3.5) g/dL Albumin/Globulin Ratio 1.4 (1.3-2.8) 11/03/17 11/03/17 Range/Units 08:31 11:18 WBC (4.0-11.0) K/uL RBC (4.50-5.90) M/uL Hgb (13.0-17.0) g/dL Hct (38.0-50.0) % MCV (80.0-98.0) fL MCH (27.0-32.0) pg MCHC (31.0-37.0) g/dL RDW Std Deviation (28.0-62.0) fl RDW Coeff of Lb (11.0-15.0) % Plt Count (150-400) K/uL Neut % (Auto) (48.0-80.0) % Lymph % (Auto) (16.0-40.0) % [place] % (Auto) (0.0-15.0) % Eos % (Auto) (0.0-7.0) % Baso % (Auto) (0.0-1.5) % Neut # (Auto) (1.4-5.7) K/uL Lymph # (Auto) (0.6-2.4) K/uL [place] # (Auto) (0.0-0.8) K/uL Eos # (Auto) (0.0-0.7) K/uL Baso # (Auto) (0.0-0.1) K/uL Nucleated RBC % /100WBC Nucleated RBCs # K/uL Sodium (136-146) mmol/L Potassium (3.5-5.1) mmol/L Chloride (98-110) mmol/L Carbon Dioxide (21-31) mmol/L BUN (6.0-23.0) mg/dL Creatinine (0.6-1.5) mg/dL Est Cr Clr Drug Dosing mL/min Estimated GFR (MDRD) ml/min Glucose (60-110) mg/dL POC Glucose 196 H 160 H (60-110) mg/dL Calcium (8.8-10.8) mg/dL Total Bilirubin (0.1-1.5) mg/dL AST (5-40) IU/L ALT (8-54) IU/L Alkaline Phosphatase (40-150) Total Protein (6.0-8.0) g/dL Albumin (3.4-4.8) g/dL Globulin (2.0-3.5) g/dL Albumin/Globulin Ratio (1.3-2.8) Med Orders - Current: Current Medications Acetaminophen (Tylenol) 650 mg PO Q4H PRN PRN Reason: Pain (Mild 1-3)/fever Last Admin: 10/27/17 11:36 Dose: 650 mg Hydrocodone Bitart/Acetaminophen ([place] 325-5 Mg) 2 tab PO Q4H PRN PRN Reason: Pain (moderate 4-6) Last Admin: 11/02/17 21:28 Dose: 2 tab Diphenhydramine HCl (Benadryl) 25 mg IVPUSH Q6H PRN PRN Reason: Itching Last Admin: 11/02/17 21:28 Dose: 25 mg Folic Acid (Folic Acid) 1 mg PO BEDTIME [facility] Last Admin: 11/02/17 21:21 Dose: 1 mg Furosemide (Lasix) 40 mg IVPUSH NOW ONE Stop: 11/03/17 12:59 Hydrochlorothiazide (Hydrochlorothiazide) 25 mg PO Q24H [facility] Last Admin: 11/03/17 00:47 Dose: 25 mg Hydroxyzine HCl (Atarax) 25 mg PO Q6H PRN PRN Reason: Itching Last Admin: 11/02/17 02:27 Dose: 25 mg Ceftriaxone Sodium/Dextrose 1 (gm/ Premix) 50 mls @ 200 mls/hr IV Q24H [facility] Last Admin: 11/03/17 11:48 Dose: 200 mls/hr Insulin Aspart (Novolog) 0 unit SUBCUT TIDAC [facility] PRN Reason: Protocol Last Admin: 11/03/17 11:53 Dose: 3 units Insulin Glargine (Lantus Solostar) 60 units SUBCUT BID [facility] Last Admin: 11/03/17 08:32 Dose: 60 units Morphine Sulfate (Morphine) 2 mg IVPUSH Q2H PRN PRN Reason: Pain (severe 7-10) Last Admin: 11/02/17 03:32 Dose: 2 mg Permethrin 5% Cram (Own Med) 1 each TOP Q2D [facility] Last Admin: 11/01/17 20:47 Dose: 1 each Ondansetron HCl (Zofran Odt) 4 mg PO Q4H PRN PRN Reason: nausea, able to take PO Ondansetron HCl (Zofran) 4 mg IVPUSH Q4H PRN PRN Reason: Nausea Polyethylene Glycol (Miralax) 17 gm PO BID [facility] Last Admin: 11/03/17 08:36 Dose: Not Given Senna/Docusate Sodium (Senna Plus) 1 tab PO DAILY PRN PRN Reason: Constipation Last Admin: 10/28/17 09:27 Dose: 1 tab Sodium Chloride (Saline Flush) 10 ml FLUSH ASDIRECTED PRN PRN Reason: Keep Vein Open Last Admin: 10/26/17 11:59 Dose: 10 ml Sodium Chloride (Saline Flush) 2.5 ml FLUSH ASDIRECTED PRN PRN Reason: Keep Vein Open Last Admin: 10/26/17 11:59 Dose: 2.5 ml Discontinued Medications Calcium Carbonate/Glycine (Tums) 1,000 mg PO ONETIME ONE Stop: 10/27/17 08:44 Last Admin: 10/27/17 09:51 Dose: 1,000 mg Calcium Carbonate/Glycine (Tums) 1,000 mg PO ONETIME ONE Stop: 10/28/17 08:34 Last Admin: 10/28/17 09:25 Dose: 1,000 mg Dexamethasone (Dexamethasone) 40 mg PO DAILY [facility] Last Admin: 10/31/17 08:09 Dose: 40 mg Enoxaparin Sodium (Lovenox) 40 mg SUBCUT Q24H [facility] Last Admin: 10/26/17 15:59 Dose: 40 mg Furosemide (Lasix) 40 mg IVPUSH NOW ONE Stop: 10/28/17 08:35 Last Admin: 10/28/17 09:25 Dose: 40 mg Furosemide (Lasix) 40 mg IVPUSH ONETIME ONE Stop: 10/30/17 11:01 Last Admin: 10/30/17 11:19 Dose: 40 mg Furosemide (Lasix) 40 mg IVPUSH NOW ONE Stop: 10/31/17 09:31 Furosemide (Lasix) 40 mg IVPUSH NOW ONE Stop: 10/31/17 08:36 Last Admin: 10/31/17 09:01 Dose: 40 mg Furosemide (Lasix) 40 mg IVPUSH NOW ONE Stop: 11/01/17 11:18 Last Admin: 11/01/17 12:44 Dose: 40 mg Furosemide (Lasix) 40 mg IVPUSH NOW ONE Stop: 11/02/17 10:12 Last Admin: 11/02/17 10:28 Dose: 40 mg Heparin Sodium (Porcine) (Heparin Sodium) 5,000 units SUBCUT Q8H [facility] Last Admin: 10/26/17 18:18 Dose: Not Given Ceftriaxone Sodium/Dextrose 1 (gm/ Premix) 50 mls @ 100 mls/hr IV ONETIME ONE Stop: 10/26/17 13:53 Last Admin: 10/26/17 13:35 Dose: 100 mls/hr Vancomycin HCl 1,750 mg/ (Sodium Chloride) 500 mls @ 250 mls/hr IV Q12H [facility] Last Admin: 10/27/17 16:42 Dose: 250 mls/hr Vancomycin HCl 1,750 mg/ (Sodium Chloride) 500 mls @ 250 mls/hr IV Q12H [facility] Last Admin: 10/28/17 13:58 Dose: Not Given Vancomycin HCl 2,000 mg/ (Sodium Chloride) 500 mls @ 250 mls/hr IV Q24H [facility] Last Admin: 10/28/17 16:49 Dose: 250 mls/hr Sodium Chloride (Normal Saline) 500 mls @ 250 mls/hr IV .BOLUS ONE Stop: 10/30/17 11:18 Last Admin: 10/30/17 09:55 Dose: 250 mls/hr Insulin Human Regular 100 unit (/ Sodium Chloride) 100 mls @ 4 mls/hr IV TITRATE ESSENCE; 4 UNIT/HR PRN Reason: Protocol Last Titration: 11/02/17 07:39 Dose: 0 unit/hr, 0 mls/hr Sodium Chloride (Normal Saline) 500 mls @ 250 mls/hr IV .BOLUS ONE Stop: 10/31/17 10:29 Last Admin: 10/31/17 09:00 Dose: 250 mls/hr Insulin Aspart (Novolog) 0 unit SUBCUT TIDAC [facility] PRN Reason: Protocol Last Admin: 10/31/17 07:40 Dose: Not Given Insulin Aspart (Novolog) 15 unit SUBCUT ONETIME ONE Stop: 10/29/17 08:10 Last Admin: 10/29/17 08:42 Dose: 15 unit Insulin Aspart (Novolog) 15 unit SUBCUT ONETIME ONE Stop: 10/29/17 15:37 Last Admin: 10/29/17 15:47 Dose: 15 unit Insulin Aspart (Novolog) 15 unit SUBCUT ONETIME ONE Stop: 10/29/17 21:35 Last Admin: 10/29/17 21:45 Dose: 15 units Insulin Aspart (Novolog) 20 unit SUBCUT ONETIME ONE Stop: 10/30/17 01:48 Last Admin: 10/30/17 02:09 Dose: 20 units Insulin Glargine (Lantus Solostar) 60 units SUBCUT DAILY [facility] Last Admin: 10/30/17 10:08 Dose: 60 unit Insulin Glargine (Lantus Solostar) 60 units SUBCUT BID [facility] Last Admin: 11/01/17 08:14 Dose: 60 units Insulin Glargine (Lantus Solostar) 15 units SUBCUT NOW STA Stop: 11/01/17 10:51 Last Admin: 11/01/17 12:46 Dose: 15 unit Insulin Glargine (Lantus Solostar) 70 units SUBCUT BID [facility] Last Admin: 11/02/17 09:21 Dose: 60 units Lidocaine (Xylocaine-Mpf 2%) Confirm Administered Dose 5 ml .ROUTE .STK-MED ONE Stop: 10/27/17 21:22 Last Admin: 10/27/17 22:30 Dose: Not Given Morphine Sulfate (Morphine) 4 mg IVPUSH ONETIME ONE Stop: 10/26/17 13:10 Last Admin: 10/26/17 13:34 Dose: 4 mg Morphine Sulfate (Morphine) 2 mg IVPUSH Q2H PRN PRN Reason: Pain (severe 7-10) Stop: 10/27/17 14:15 Ivermectin 3mg Own (Med) 30,000 each PO ONETIME [facility] Ivermectin 3mg Own (Med) 30,000 each PO ONETIME ONE Stop: 10/26/17 19:01 Last Admin: 10/26/17 20:50 Dose: 30,000 each Ivermectin 3mg Own (Med) 8 each PO ONETIME ONE Stop: 10/27/17 19:01 Last Admin: 10/27/17 19:36 Dose: Not Given Ivermectin 3mg Own (Med) 30,000 each PO ONETIME ONE Stop: 10/26/17 19:01 Last Admin: 10/27/17 07:22 Dose: Not Given Ivermectin 3 Mg 10 each PO ONETIME ONE Stop: 10/27/17 19:01 Last Admin: 10/27/17 19:27 Dose: 10 each Ivermectin 3 Mg (Tablets) 7 each PO ONETIME ONE Stop: 10/28/17 12:46 Last Admin: 10/28/17 12:41 Dose: 7 each Non-Formulary Medication (Nf Drug) 10 each PO 11/02/17@1900 [facility] Stop: 11/02/17 19:01 Last Admin: 11/02/17 18:28 Dose: 10 each Ondansetron HCl (Zofran) 4 mg IVPUSH ONETIME ONE Stop: 10/26/17 13:10 Last Admin: 10/26/17 13:34 Dose: 4 mg Vancomycin HCl (Pharmacy To Dose - Vancomycin) 1 dose .XX ASDIRECTED ESSENCE - Exam General: Alert, Oriented Lungs: Clear to Auscultation, Normal Respiratory Effort Cardiovascular: Regular Rate, Regular Rhythm GI/Abdominal Exam: Soft, Non-Tender Extremities: Pedal Edema (+2 edema, right ulcer under wrap, petechial rash stable on all extremities) - Problem List Review Problem List Initiated/Reviewed/Updated: Yes - My Orders Last 24 Hours: My Active Orders 11/02/17 12:46 Insulin Aspart [NovoLOG] See Protocol SUBCUT TIDAC 11/02/17 14:45 Accu Check [Blood Glucose Check, Bedside] [RC] TIDAC 11/03/17 12:56 Transfuse Platelets [COMM] Routine 11/03/17 12:58 Furosemide [Lasix] 40 mg IVPUSH NOW ONE - Plan Plan:: 72 yo male admitted 10/26/16 for bilateral lower leg cullulitis with pmh of chronic venous insufficiency, type II diabetes, and pedal edema. Cellulitis, BL lower extremities, improving, continue Rocephin Scabies: Continue Ivermectin and permethrin Benadryl for pruritus. Contact precautions. IDDM, better controlled after stopping steroids, continue BID lantus and high dose sliding scale BL Pedal Edema continue lasix Thrombocytopenia: finished four days of high dose steroids, platelets 22 today NILS, Cr 1.4 today VTE: SCD dispo: discharge home Saturday
[2017-11-03] MEDS: hydrOXYzine HCl 25 MG Tab PO PRN (19:15)
[2017-11-03] MEDS: Folic Acid 1 MG Tab PO SCH (20:40)
[2017-11-03] MEDS: PERMETHRIN 5% TOP SCH (20:43)
[2017-11-04] MEDS: Hydrochlorothiazide 25 MG Tab PO SCH (00:45)
[2017-11-04] MEDS: Acetaminophen/HYDROcodone 325-5 MG Tab PO PRN ×2 (03:01→12:01)
[2017-11-04] MEDS: Insulin Aspart 100 Units/ML 3 ML Pen SUBCUT SCH ×2 (06:49→11:32)
[2017-11-04] MEDS: hydrOXYzine HCl 25 MG Tab PO PRN (08:06)
[2017-11-04] MEDS: Polyethylene Glycol 3350 Powder 17 GM Packet PO SCH (08:07)
[2017-11-04] MEDS: Insulin Glargine,Human Rec. Analog 100 Units/ML 3 ML Pen SUBCUT SCH (08:08)
[2017-11-04] MEDS ORDERED: Furosemide 40 MG/4 ML VIAL IVPUSH ONE (08:21)
[2017-11-04] MEDS ORDERED: Sodium Chloride 0.9% 500 ML IV SCH (08:30)
[2017-11-04] MEDS ORDERED: Metoprolol Succinate 50 MG Tab.ER PO SCH (09:00)
--- NOTE | 2017-11-04 10:52 | PCM.DCSUM1 ---
<Herb Coronel - Last Filed: 11/04/17 11:06> Discharge Summary - Hospital Course Free Text/Narrative:: Admission date October 26, 2017 Transfer date November 04, 2017 Admission diagnosis: #1. Cellulitis of the lower extremities bilaterally #2. Type 2 diabetes mellitus #3. Hypertension #4. Pedal edema Discharge diagnosis: #1. Thrombocytopenia of unknown etiology #2. Type 2 diabetes #3. Cellulitis with improving clinical picture #4. Pedal edema #5. Hypertension #6. Increased TSH #7. Acute kidney injury - resolved Reason for transfer: Further workup for thrombocytopenia Accepting physician: Dr. Waldron, Hospital course: 72-year-old male with a past history as above presented to the emergency department on October 26 complaining of bilateral lower extremity swelling and pain found to be diagnosed with cellulitis and was admitted as an inpatient for IV antibiotics. Patient placed on vancomycin and began to show clinical improvement in the upcoming days on vancomycin and then switched over to Rocephin with negative blood cultures. Patient was also found to have scabies treated with permethrin appears to be improving as well. In regards to his pedal edema, and echocardiogram was obtained which showed no signs of congestive heart failure. He has been getting Lasix and showing signs of minimal improvement for the pedal edema. He denied orthopnea. No shortness of breath or chest pain throughout the hospital stay. On admission, the patient had a platelet count of 35,000. As per the patient, he does have a lengthy history of thrombocytopenia that has had a workup in the past for malignancy. He has had a bone marrow biopsy 2 years ago in [place] which was negative. Laboratory studies here during his hospital stay also have been negative. Hepatitis panel, HIV, folate, B12, peripheral smear have been negative. TSH was low, indicating possible untreated hypothyroidism. He was treated with dexamethasone 40 mg 5 days, which was unsuccessful in treating his platelet count. Platelets were also transfused which is also unsuccessful. Patient's case was discussed with Dr. Doherty, Hematology, [place], who after learning that the case suggested that he needs a further workup for thrombocytopenia given that his platelet count was now 15,000 at the time of transfer. He recommended that we get a PT, PTT, fibrinogen level and transfer him for a bone marrow biopsy. At the time of transfer, the patient is hemodynamically stable and showing no signs of active bleeding. - Discharge Data Discharge Date: 11/04/17 Discharge Disposition: DC/Tfer to Acute Hospital 02 Condition: Good - Patient Summary/Data Consults: Consultations 10/28/17 08:28 PT Evaluation and Treatment [CONS] Routine 10/28/17 10:50 Consult to Physical Therapy [PT Evaluation and Treatment] [CONS] Routine 10/28/17 14:30 Consult to Diabetic Nurse Specialist [CONS] Routine 10/31/17 11:13 Consult to Wound Care Services [CONS] Routine - Patient Instructions Diet: Usual Diet as Tolerated Activity: As Tolerated - Discharge Plan Home Medications: Home Meds Insulin Aspart [NovoLOG] 100 unit SUBCUT BIDAC 10/26/17 [History] Insulin Glarg,Human.Rec.Analog [LantUS Solostar] 100 units SUBCUT DAILY [History] Hydrochlorothiazide 25 mg PO Q24H tablet 11/04/17 [Rx] Referrals: Prateek Padilla MD [Ordering Only Provider] - 11/08/17 10:00 am (pls be there 30 mins before the appt time) - Discharge Summary/Plan Comment DC Time >30 min.: No Discharge Summary/Plan Comment: Admission date October 26, 2017 Transfer date November 04, 2017 Admission diagnosis: #1. Cellulitis of the lower extremities bilaterally #2. Type 2 diabetes mellitus #3. Hypertension #4. Pedal edema Discharge diagnosis: #1. Thrombocytopenia of unknown etiology #2. Type 2 diabetes #3. Cellulitis with improving clinical picture #4. Pedal edema #5. Hypertension #6. Increased TSH #7. Acute kidney injury - resolved Reason for transfer: Further workup for thrombocytopenia Accepting physician: Dr. Waldron, Hospital course: 72-year-old male with a past history as above presented to the emergency department on October 26 complaining of bilateral lower extremity swelling and pain found to be diagnosed with cellulitis and was admitted as an inpatient for IV antibiotics. Patient placed on vancomycin and began to show clinical improvement in the upcoming days on vancomycin and then switched over to Rocephin with negative blood cultures. Patient was also found to have scabies treated with permethrin appears to be improving as well. In regards to his pedal edema, and echocardiogram was obtained which showed no signs of congestive heart failure. He has been getting Lasix and showing signs of minimal improvement for the pedal edema. He denied orthopnea. No shortness of breath or chest pain throughout the hospital stay. On admission, the patient had a platelet count of 35,000. As per the patient, he does have a lengthy history of thrombocytopenia that has had a workup in the past for malignancy. He has had a bone marrow biopsy 2 years ago in [place] which was negative. Laboratory studies here during his hospital stay also have been negative. Hepatitis panel, HIV, folate, B12, peripheral smear have been negative. TSH was low, indicating possible untreated hypothyroidism. He was treated with dexamethasone 40 mg 5 days, which was unsuccessful in treating his platelet count. Platelets were also transfused which is also unsuccessful. Patient's case was discussed with Dr. Doherty, Hematology, [place], who after learning that the case suggested that he needs a further workup for thrombocytopenia given that his platelet count was now 15,000 at the time of transfer. He recommended that we get a PT, PTT, fibrinogen level and transfer him for a bone marrow biopsy. At the time of transfer, the patient is hemodynamically stable and showing no signs of active bleeding. - Patient Data Vitals - Most Recent: Last Vital Signs Temp 36.6 C 11/04/17 08:00 Pulse 50 L 11/04/17 08:37 Resp 20 11/04/17 08:00 BP 180/74 H 11/04/17 08:37 Pulse Ox 95 11/04/17 08:00 Weight - Most Recent: 166.468 kg I&O - Last 24 hours: Intake & Output 11/03/17 11/04/17 11/04/17 22:59 06:59 14:59 Intake Total 1135 700 Output Total 3050 1650 Balance -1915 -950 Lab Results - Last 24 hrs: Laboratory Results - last 24 hr 11/01/17 11/03/17 11/03/17 Range/Units 06:25 11:18 16:46 WBC (4.0-11.0) K/uL RBC (4.50-5.90) M/uL Hgb (13.0-17.0) g/dL Hct (38.0-50.0) % MCV (80.0-98.0) fL MCH (27.0-32.0) pg MCHC (31.0-37.0) g/dL RDW Std Deviation (28.0-62.0) fl RDW Coeff of Lb (11.0-15.0) % Plt Count (150-400) K/uL Add Manual Diff Neutrophils % (Manual) (48.0-80.0) % Band Neutrophils % % Lymphocytes % (Manual) (16.0-40.0) % Monocytes % (Manual) (0.0-15.0) % Eosinophils % (Manual) (0.0-7.0) % Nucleated RBC % /100WBC Absolute Seg Neuts (1.4-5.7) Band Neutrophils # Lymphocytes # (Manual) (0.6-2.4) Monocytes # (Manual) (0.0-0.8) Eosinophils # (Manual) (0.0-0.7) Nucleated RBCs # K/uL Sodium Potassium Chloride Carbon Dioxide BUN Creatinine Est Cr Clr Drug Dosing Estimated GFR (MDRD) Glucose POC Glucose 160 H 240 H (60-110) mg/dL Calcium Total Bilirubin AST ALT Alkaline Phosphatase Total Protein Albumin Globulin Albumin/Globulin Ratio Blood Type A POSITIVE 11/04/17 11/04/17 11/04/17 Range/Units 06:19 06:38 06:38 WBC 9.90 (4.0-11.0) K/uL RBC 5.53 (4.50-5.90) M/uL Hgb 13.6 (13.0-17.0) g/dL Hct 42.7 (38.0-50.0) % MCV 77.2 L (80.0-98.0) fL MCH 24.6 L (27.0-32.0) pg MCHC 31.9 (31.0-37.0) g/dL RDW Std Deviation 51.9 (28.0-62.0) fl RDW Coeff of Lb 19 H (11.0-15.0) % Plt Count 15 L (150-400) K/uL Add Manual Diff YES Neutrophils % (Manual) 61 (48.0-80.0) % Band Neutrophils % 1 % Lymphocytes % (Manual) 26 (16.0-40.0) % Monocytes % (Manual) 5 (0.0-15.0) % Eosinophils % (Manual) 7 (0.0-7.0) % Nucleated RBC % 0.0 /100WBC Absolute Seg Neuts 6.0 H (1.4-5.7) Band Neutrophils # 0.1 Lymphocytes # (Manual) 2.6 H (0.6-2.4) Monocytes # (Manual) 0.5 (0.0-0.8) Eosinophils # (Manual) 0.7 (0.0-0.7) Nucleated RBCs # 0 K/uL Sodium Cancelled Potassium Cancelled Chloride Cancelled Carbon Dioxide Cancelled BUN Cancelled Creatinine Cancelled Est Cr Clr Drug Dosing Cancelled Estimated GFR (MDRD) Cancelled Glucose Cancelled POC Glucose 121 H (60-110) mg/dL Calcium Cancelled Total Bilirubin Cancelled AST Cancelled ALT Cancelled Alkaline Phosphatase Cancelled Total Protein Cancelled Albumin Cancelled Globulin Cancelled Albumin/Globulin Ratio Cancelled Blood Type 11/04/17 Range/Units 08:43 WBC (4.0-11.0) K/uL RBC (4.50-5.90) M/uL Hgb (13.0-17.0) g/dL Hct (38.0-50.0) % MCV (80.0-98.0) fL MCH (27.0-32.0) pg MCHC (31.0-37.0) g/dL RDW Std Deviation (28.0-62.0) fl RDW Coeff of Lb (11.0-15.0) % Plt Count (150-400) K/uL Add Manual Diff Neutrophils % (Manual) (48.0-80.0) % Band Neutrophils % % Lymphocytes % (Manual) (16.0-40.0) % Monocytes % (Manual) (0.0-15.0) % Eosinophils % (Manual) (0.0-7.0) % Nucleated RBC % /100WBC Absolute Seg Neuts (1.4-5.7) Band Neutrophils # Lymphocytes # (Manual) (0.6-2.4) Monocytes # (Manual) (0.0-0.8) Eosinophils # (Manual) (0.0-0.7) Nucleated RBCs # K/uL Sodium 139 Potassium 4.3 Chloride 99 Carbon Dioxide 28 BUN 36 H Creatinine 1.4 Est Cr Clr Drug Dosing 61.25 Estimated GFR (MDRD) 50.0 Glucose 259 H POC Glucose (60-110) mg/dL Calcium 8.1 L Total Bilirubin 0.7 AST 17 ALT 30 Alkaline Phosphatase 60 Total Protein 6.6 Albumin 3.6 Globulin 3.0 Albumin/Globulin Ratio 1.2 L Blood Type Med Orders - Current: Current Medications Acetaminophen (Tylenol) 650 mg PO Q4H PRN PRN Reason: Pain (Mild 1-3)/fever Last Admin: 10/27/17 11:36 Dose: 650 mg Hydrocodone Bitart/Acetaminophen ([place] 325-5 Mg) 2 tab PO Q4H PRN PRN Reason: Pain (moderate 4-6) Last Admin: 11/04/17 03:01 Dose: 2 tab Diphenhydramine HCl (Benadryl) 25 mg IVPUSH Q6H PRN PRN Reason: Itching Last Admin: 11/02/17 21:28 Dose: 25 mg Folic Acid (Folic Acid) 1 mg PO BEDTIME [facility] Last Admin: 11/03/17 20:40 Dose: 1 mg Hydrochlorothiazide (Hydrochlorothiazide) 25 mg PO Q24H [facility] Last Admin: 11/04/17 00:45 Dose: 25 mg Hydroxyzine HCl (Atarax) 25 mg PO Q6H PRN PRN Reason: Itching Last Admin: 11/04/17 08:06 Dose: 25 mg Ceftriaxone Sodium/Dextrose 1 (gm/ Premix) 50 mls @ 200 mls/hr IV Q24H [facility] Last Admin: 11/03/17 11:48 Dose: 200 mls/hr Sodium Chloride (Normal Saline) 500 mls @ 999 mls/hr IV STAT [facility] Last Admin: 11/04/17 08:59 Dose: 999 mls/hr Insulin Aspart (Novolog) 0 unit SUBCUT TIDAC [facility] PRN Reason: Protocol Last Admin: 11/04/17 06:49 Dose: Not Given Insulin Glargine (Lantus Solostar) 60 units SUBCUT BID [facility] Last Admin: 11/04/17 08:08 Dose: 60 units Metoprolol Succinate (Toprol Xl) 50 mg PO DAILY [facility] Last Admin: 11/04/17 08:37 Dose: Not Given Morphine Sulfate (Morphine) 2 mg IVPUSH Q2H PRN PRN Reason: Pain (severe 7-10) Last Admin: 11/02/17 03:32 Dose: 2 mg Permethrin 5% Cram (Own Med) 1 each TOP Q2D [facility] Last Admin: 11/03/17 20:43 Dose: 1 each Ondansetron HCl (Zofran Odt) 4 mg PO Q4H PRN PRN Reason: nausea, able to take PO Ondansetron HCl (Zofran) 4 mg IVPUSH Q4H PRN PRN Reason: Nausea Polyethylene Glycol (Miralax) 17 gm PO BID [facility] Last Admin: 11/04/17 08:07 Dose: Not Given Senna/Docusate Sodium (Senna Plus) 1 tab PO DAILY PRN PRN Reason: Constipation Last Admin: 10/28/17 09:27 Dose: 1 tab Sodium Chloride (Saline Flush) 10 ml FLUSH ASDIRECTED PRN PRN Reason: Keep Vein Open Last Admin: 10/26/17 11:59 Dose: 10 ml Sodium Chloride (Saline Flush) 2.5 ml FLUSH ASDIRECTED PRN PRN Reason: Keep Vein Open Last Admin: 10/26/17 11:59 Dose: 2.5 ml Discontinued Medications Calcium Carbonate/Glycine (Tums) 1,000 mg PO ONETIME ONE Stop: 10/27/17 08:44 Last Admin: 10/27/17 09:51 Dose: 1,000 mg Calcium Carbonate/Glycine (Tums) 1,000 mg PO ONETIME ONE Stop: 10/28/17 08:34 Last Admin: 10/28/17 09:25 Dose: 1,000 mg Dexamethasone (Dexamethasone) 40 mg PO DAILY [facility] Last Admin: 10/31/17 08:09 Dose: 40 mg Enoxaparin Sodium (Lovenox) 40 mg SUBCUT Q24H [facility] Last Admin: 10/26/17 15:59 Dose: 40 mg Furosemide (Lasix) 40 mg IVPUSH NOW ONE Stop: 10/28/17 08:35 Last Admin: 10/28/17 09:25 Dose: 40 mg Furosemide (Lasix) 40 mg IVPUSH ONETIME ONE Stop: 10/30/17 11:01 Last Admin: 10/30/17 11:19 Dose: 40 mg Furosemide (Lasix) 40 mg IVPUSH NOW ONE Stop: 10/31/17 09:31 Furosemide (Lasix) 40 mg IVPUSH NOW ONE Stop: 10/31/17 08:36 Last Admin: 10/31/17 09:01 Dose: 40 mg Furosemide (Lasix) 40 mg IVPUSH NOW ONE Stop: 11/01/17 11:18 Last Admin: 11/01/17 12:44 Dose: 40 mg Furosemide (Lasix) 40 mg IVPUSH NOW ONE Stop: 11/02/17 10:12 Last Admin: 11/02/17 10:28 Dose: 40 mg Furosemide (Lasix) 40 mg IVPUSH NOW ONE Stop: 11/03/17 12:59 Last Admin: 11/03/17 13:14 Dose: 40 mg Furosemide (Lasix) 20 mg IVPUSH NOW ONE Stop: 11/04/17 08:22 Last Admin: 11/04/17 08:32 Dose: 20 mg Heparin Sodium (Porcine) (Heparin Sodium) 5,000 units SUBCUT Q8H [facility] Last Admin: 10/26/17 18:18 Dose: Not Given Ceftriaxone Sodium/Dextrose 1 (gm/ Premix) 50 mls @ 100 mls/hr IV ONETIME ONE Stop: 10/26/17 13:53 Last Admin: 10/26/17 13:35 Dose: 100 mls/hr Vancomycin HCl 1,750 mg/ (Sodium Chloride) 500 mls @ 250 mls/hr IV Q12H [facility] Last Admin: 10/27/17 16:42 Dose: 250 mls/hr Vancomycin HCl 1,750 mg/ (Sodium Chloride) 500 mls @ 250 mls/hr IV Q12H [facility] Last Admin: 10/28/17 13:58 Dose: Not Given Vancomycin HCl 2,000 mg/ (Sodium Chloride) 500 mls @ 250 mls/hr IV Q24H [facility] Last Admin: 10/28/17 16:49 Dose: 250 mls/hr Sodium Chloride (Normal Saline) 500 mls @ 250 mls/hr IV .BOLUS ONE Stop: 10/30/17 11:18 Last Admin: 10/30/17 09:55 Dose: 250 mls/hr Insulin Human Regular 100 unit (/ Sodium Chloride) 100 mls @ 4 mls/hr IV TITRATE [facility]; 4 UNIT/HR PRN Reason: Protocol Last Titration: 11/02/17 07:39 Dose: 0 unit/hr, 0 mls/hr Sodium Chloride (Normal Saline) 500 mls @ 250 mls/hr IV .BOLUS ONE Stop: 10/31/17 10:29 Last Admin: 10/31/17 09:00 Dose: 250 mls/hr Insulin Aspart (Novolog) 0 unit SUBCUT TIDAC [facility] PRN Reason: Protocol Last Admin: 10/31/17 07:40 Dose: Not Given Insulin Aspart (Novolog) 15 unit SUBCUT ONETIME ONE Stop: 10/29/17 08:10 Last Admin: 10/29/17 08:42 Dose: 15 unit Insulin Aspart (Novolog) 15 unit SUBCUT ONETIME ONE Stop: 10/29/17 15:37 Last Admin: 10/29/17 15:47 Dose: 15 unit Insulin Aspart (Novolog) 15 unit SUBCUT ONETIME ONE Stop: 10/29/17 21:35 Last Admin: 10/29/17 21:45 Dose: 15 units Insulin Aspart (Novolog) 20 unit SUBCUT ONETIME ONE Stop: 10/30/17 01:48 Last Admin: 10/30/17 02:09 Dose: 20 units Insulin Glargine (Lantus Solostar) 60 units SUBCUT DAILY [facility] Last Admin: 10/30/17 10:08 Dose: 60 unit Insulin Glargine (Lantus Solostar) 60 units SUBCUT BID [facility] Last Admin: 11/01/17 08:14 Dose: 60 units Insulin Glargine (Lantus Solostar) 15 units SUBCUT NOW STA Stop: 11/01/17 10:51 Last Admin: 11/01/17 12:46 Dose: 15 unit Insulin Glargine (Lantus Solostar) 70 units SUBCUT BID [facility] Last Admin: 11/02/17 09:21 Dose: 60 units Lidocaine (Xylocaine-Mpf 2%) Confirm Administered Dose 5 ml .ROUTE .STK-MED ONE Stop: 10/27/17 21:22 Last Admin: 10/27/17 22:30 Dose: Not Given Morphine Sulfate (Morphine) 4 mg IVPUSH ONETIME ONE Stop: 10/26/17 13:10 Last Admin: 10/26/17 13:34 Dose: 4 mg Morphine Sulfate (Morphine) 2 mg IVPUSH Q2H PRN PRN Reason: Pain (severe 7-10) Stop: 10/27/17 14:15 Ivermectin 3mg Own (Med) 30,000 each PO ONETIME [facility] Ivermectin 3mg Own (Med) 30,000 each PO ONETIME ONE Stop: 10/26/17 19:01 Last Admin: 10/26/17 20:50 Dose: 30,000 each Ivermectin 3mg Own (Med) 8 each PO ONETIME ONE Stop: 10/27/17 19:01 Last Admin: 10/27/17 19:36 Dose: Not Given Ivermectin 3mg Own (Med) 30,000 each PO ONETIME ONE Stop: 10/26/17 19:01 Last Admin: 10/27/17 07:22 Dose: Not Given Ivermectin 3 Mg 10 each PO ONETIME ONE Stop: 10/27/17 19:01 Last Admin: 10/27/17 19:27 Dose: 10 each Ivermectin 3 Mg (Tablets) 7 each PO ONETIME ONE Stop: 10/28/17 12:46 Last Admin: 10/28/17 12:41 Dose: 7 each Non-Formulary Medication (Nf Drug) 10 each PO 11/02/17@1900 [facility] Stop: 11/02/17 19:01 Last Admin: 11/02/17 18:28 Dose: 10 each Ondansetron HCl (Zofran) 4 mg IVPUSH ONETIME ONE Stop: 10/26/17 13:10 Last Admin: 10/26/17 13:34 Dose: 4 mg Vancomycin HCl (Pharmacy To Dose - Vancomycin) 1 dose .XX ASDIRECTED [facility] *Q Meaningful Use (DIS) - VTE *Q VTE Criteria *Q: - Stroke *Q Stroke Criteria *Q: - AMI *Q AMI Criteria *Q: <Gopi Osman - Last Filed: 11/12/17 19:50> Discharge Summary - Patient Summary/Data Consults: Consultations 10/28/17 08:28 PT Evaluation and Treatment [CONS] Routine 10/28/17 10:50 Consult to Physical Therapy [PT Evaluation and Treatment] [CONS] Routine 10/28/17 14:30 Consult to Diabetic Nurse Specialist [CONS] Routine 10/31/17 11:13 Consult to Wound Care Services [CONS] Routine - Patient Data Vitals - Most Recent: Last Vital Signs Temp 36.5 C 11/04/17 11:31 Pulse 47 L 11/04/17 11:31 Resp 20 11/04/17 11:31 BP 138/68 11/04/17 11:31 Pulse Ox 93 L 11/04/17 11:31 Med Orders - Current: Current Medications Discontinued Medications Acetaminophen (Tylenol) 650 mg PO Q4H PRN PRN Reason: Pain (Mild 1-3)/fever Last Admin: 10/27/17 11:36 Dose: 650 mg Hydrocodone Bitart/Acetaminophen ([place] 325-5 Mg) 2 tab PO Q4H PRN PRN Reason: Pain (moderate 4-6) Last Admin: 11/04/17 12:01 Dose: 2 tab Calcium Carbonate/Glycine (Tums) 1,000 mg PO ONETIME ONE Stop: 10/27/17 08:44 Last Admin: 10/27/17 09:51 Dose: 1,000 mg Calcium Carbonate/Glycine (Tums) 1,000 mg PO ONETIME ONE Stop: 10/28/17 08:34 Last Admin: 10/28/17 09:25 Dose: 1,000 mg Dexamethasone (Dexamethasone) 40 mg PO DAILY [facility] Last Admin: 10/31/17 08:09 Dose: 40 mg Diphenhydramine HCl (Benadryl) 25 mg IVPUSH Q6H PRN PRN Reason: Itching Last Admin: 11/04/17 11:33 Dose: 25 mg Enoxaparin Sodium (Lovenox) 40 mg SUBCUT Q24H [facility] Last Admin: 10/26/17 15:59 Dose: 40 mg Folic Acid (Folic Acid) 1 mg PO BEDTIME [facility] Last Admin: 11/03/17 20:40 Dose: 1 mg Furosemide (Lasix) 40 mg IVPUSH NOW ONE Stop: 10/28/17 08:35 Last Admin: 10/28/17 09:25 Dose: 40 mg Furosemide (Lasix) 40 mg IVPUSH ONETIME ONE Stop: 10/30/17 11:01 Last Admin: 10/30/17 11:19 Dose: 40 mg Furosemide (Lasix) 40 mg IVPUSH NOW ONE Stop: 10/31/17 09:31 Furosemide (Lasix) 40 mg IVPUSH NOW ONE Stop: 10/31/17 08:36 Last Admin: 10/31/17 09:01 Dose: 40 mg Furosemide (Lasix) 40 mg IVPUSH NOW ONE Stop: 11/01/17 11:18 Last Admin: 11/01/17 12:44 Dose: 40 mg Furosemide (Lasix) 40 mg IVPUSH NOW ONE Stop: 11/02/17 10:12 Last Admin: 11/02/17 10:28 Dose: 40 mg Furosemide (Lasix) 40 mg IVPUSH NOW ONE Stop: 11/03/17 12:59 Last Admin: 11/03/17 13:14 Dose: 40 mg Furosemide (Lasix) 20 mg IVPUSH NOW ONE Stop: 11/04/17 08:22 Last Admin: 11/04/17 08:32 Dose: 20 mg Heparin Sodium (Porcine) (Heparin Sodium) 5,000 units SUBCUT Q8H [facility] Last Admin: 10/26/17 18:18 Dose: Not Given Hydrochlorothiazide (Hydrochlorothiazide) 25 mg PO Q24H [facility] Last Admin: 11/04/17 00:45 Dose: 25 mg Hydroxyzine HCl (Atarax) 25 mg PO Q6H PRN PRN Reason: Itching Last Admin: 11/04/17 08:06 Dose: 25 mg Ceftriaxone Sodium/Dextrose 1 (gm/ Premix) 50 mls @ 100 mls/hr IV ONETIME ONE Stop: 10/26/17 13:53 Last Admin: 10/26/17 13:35 Dose: 100 mls/hr Vancomycin HCl 1,750 mg/ (Sodium Chloride) 500 mls @ 250 mls/hr IV Q12H [facility] Last Admin: 10/27/17 16:42 Dose: 250 mls/hr Vancomycin HCl 1,750 mg/ (Sodium Chloride) 500 mls @ 250 mls/hr IV Q12H [facility] Last Admin: 10/28/17 13:58 Dose: Not Given Vancomycin HCl 2,000 mg/ (Sodium Chloride) 500 mls @ 250 mls/hr IV Q24H [facility] Last Admin: 10/28/17 16:49 Dose: 250 mls/hr Ceftriaxone Sodium/Dextrose 1 (gm/ Premix) 50 mls @ 200 mls/hr IV Q24H [facility] Last Admin: 11/04/17 11:33 Dose: 200 mls/hr Sodium Chloride (Normal Saline) 500 mls @ 250 mls/hr IV .BOLUS ONE Stop: 10/30/17 11:18 Last Admin: 10/30/17 09:55 Dose: 250 mls/hr Insulin Human Regular 100 unit (/ Sodium Chloride) 100 mls @ 4 mls/hr IV TITRATE [facility]; 4 UNIT/HR PRN Reason: Protocol Last Titration: 11/02/17 07:39 Dose: 0 unit/hr, 0 mls/hr Sodium Chloride (Normal Saline) 500 mls @ 250 mls/hr IV .BOLUS ONE Stop: 10/31/17 10:29 Last Admin: 10/31/17 09:00 Dose: 250 mls/hr Sodium Chloride (Normal Saline) 500 mls @ 999 mls/hr IV STAT [facility] Last Admin: 11/04/17 08:59 Dose: 999 mls/hr Insulin Aspart (Novolog) 0 unit SUBCUT TIDAC [facility] PRN Reason: Protocol Last Admin: 10/31/17 07:40 Dose: Not Given Insulin Aspart (Novolog) 15 unit SUBCUT ONETIME ONE Stop: 10/29/17 08:10 Last Admin: 10/29/17 08:42 Dose: 15 unit Insulin Aspart (Novolog) 15 unit SUBCUT ONETIME ONE Stop: 10/29/17 15:37 Last Admin: 10/29/17 15:47 Dose: 15 unit Insulin Aspart (Novolog) 15 unit SUBCUT ONETIME ONE Stop: 10/29/17 21:35 Last Admin: 10/29/17 21:45 Dose: 15 units Insulin Aspart (Novolog) 20 unit SUBCUT ONETIME ONE Stop: 10/30/17 01:48 Last Admin: 10/30/17 02:09 Dose: 20 units Insulin Aspart (Novolog) 0 unit SUBCUT TIDAC [facility] PRN Reason: Protocol Last Admin: 11/04/17 11:32 Dose: 3 units Insulin Glargine (Lantus Solostar) 60 units SUBCUT DAILY [facility] Last Admin: 10/30/17 10:08 Dose: 60 unit Insulin Glargine (Lantus Solostar) 60 units SUBCUT BID [facility] Last Admin: 11/01/17 08:14 Dose: 60 units Insulin Glargine (Lantus Solostar) 15 units SUBCUT NOW STA Stop: 11/01/17 10:51 Last Admin: 11/01/17 12:46 Dose: 15 unit Insulin Glargine (Lantus Solostar) 70 units SUBCUT BID [facility] Last Admin: 11/02/17 09:21 Dose: 60 units Insulin Glargine (Lantus Solostar) 60 units SUBCUT BID [facility] Last Admin: 11/04/17 08:08 Dose: 60 units Lidocaine (Xylocaine-Mpf 2%) Confirm Administered Dose 5 ml .ROUTE .STK-MED ONE Stop: 10/27/17 21:22 Last Admin: 10/27/17 22:30 Dose: Not Given Metoprolol Succinate (Toprol Xl) 50 mg PO DAILY [facility] Last Admin: 11/04/17 08:37 Dose: Not Given Morphine Sulfate (Morphine) 4 mg IVPUSH ONETIME ONE Stop: 10/26/17 13:10 Last Admin: 10/26/17 13:34 Dose: 4 mg Morphine Sulfate (Morphine) 2 mg IVPUSH Q2H PRN PRN Reason: Pain (severe 7-10) Stop: 10/27/17 14:15 Morphine Sulfate (Morphine) 2 mg IVPUSH Q2H PRN PRN Reason: Pain (severe 7-10) Last Admin: 11/02/17 03:32 Dose: 2 mg Permethrin 5% Cram (Own Med) 1 each TOP Q2D [facility] Last Admin: 11/03/17 20:43 Dose: 1 each Ivermectin 3mg Own (Med) 30,000 each PO ONETIME [facility] Ivermectin 3mg Own (Med) 30,000 each PO ONETIME ONE Stop: 10/26/17 19:01 Last Admin: 10/26/17 20:50 Dose: 30,000 each Ivermectin 3mg Own (Med) 8 each PO ONETIME ONE Stop: 10/27/17 19:01 Last Admin: 10/27/17 19:36 Dose: Not Given Ivermectin 3mg Own (Med) 30,000 each PO ONETIME ONE Stop: 10/26/17 19:01 Last Admin: 10/27/17 07:22 Dose: Not Given Ivermectin 3 Mg 10 each PO ONETIME ONE Stop: 10/27/17 19:01 Last Admin: 10/27/17 19:27 Dose: 10 each Ivermectin 3 Mg (Tablets) 7 each PO ONETIME ONE Stop: 10/28/17 12:46 Last Admin: 10/28/17 12:41 Dose: 7 each Non-Formulary Medication (Nf Drug) 10 each PO 11/02/17@1900 [facility] Stop: 11/02/17 19:01 Last Admin: 11/02/17 18:28 Dose: 10 each Ondansetron HCl (Zofran) 4 mg IVPUSH ONETIME ONE Stop: 10/26/17 13:10 Last Admin: 10/26/17 13:34 Dose: 4 mg Ondansetron HCl (Zofran Odt) 4 mg PO Q4H PRN PRN Reason: nausea, able to take PO Ondansetron HCl (Zofran) 4 mg IVPUSH Q4H PRN PRN Reason: Nausea Polyethylene Glycol (Miralax) 17 gm PO BID [facility] Last Admin: 11/04/17 08:07 Dose: Not Given Senna/Docusate Sodium (Senna Plus) 1 tab PO DAILY PRN PRN Reason: Constipation Last Admin: 10/28/17 09:27 Dose: 1 tab Sodium Chloride (Saline Flush) 10 ml FLUSH ASDIRECTED PRN PRN Reason: Keep Vein Open Last Admin: 10/26/17 11:59 Dose: 10 ml Sodium Chloride (Saline Flush) 2.5 ml FLUSH ASDIRECTED PRN PRN Reason: Keep Vein Open Last Admin: 10/26/17 11:59 Dose: 2.5 ml Vancomycin HCl (Pharmacy To Dose - Vancomycin) 1 dose .XX ASDIRECTED ESSENCE *Q Meaningful Use (DIS) - VTE *Q VTE Criteria *Q: - Stroke *Q Stroke Criteria *Q: - AMI *Q AMI Criteria *Q: - Free Text/Narrative Note: I have examined the patient. I have discussed findings and treatment plan with resident. I agree with the assessment and plan outlined in following resident' s note.
[2017-11-04] MEDS: diphenhydrAMINE 50 MG/ML SDV IVPUSH PRN (11:33)
[2017-11-04] MEDS: cefTRIAXone 1 GM in Premix Bag 1 BAG IV SCH (11:33)
== END 2017-11-04 13:10 | DRG 603 ==
LOC: MW.ED 10:17 → MW.MS 13:58
PROVIDERS: ADMIT Family Medicine; ATTEND Family Medicine
PROC: 30233R1 Transfusion of Nonautologous Platelets into Peripheral Vein, Percutaneous Approach (ICD-10-PCS; principal; 2017-11-01)
DX: E11.621 Type 2 diabetes mellitus with foot ulcer (principal); L97.519 Non-pressure chronic ulcer of other part of right foot with unspecified severity; L97.529 Non-pressure chronic ulcer of other part of left foot with unspecified severity; E11.65 Type 2 diabetes mellitus with hyperglycemia; L03.116 Cellulitis of left lower limb; N17.9 Acute kidney failure, unspecified; E23.2 Diabetes insipidus; L03.115 Cellulitis of right lower limb; E03.9 Hypothyroidism, unspecified; E11.59 Type 2 diabetes mellitus with other circulatory complications; D69.6 Thrombocytopenia, unspecified; B86 Scabies; K59.00 Constipation, unspecified; R60.0 Localized edema; I10 Essential (primary) hypertension; R94.6 Abnormal results of thyroid function studies; M54.9 Dorsalgia, unspecified; G89.29 Other chronic pain; Z79.4 Long term (current) use of insulin; Z88.0 Allergy status to penicillin
CPT/HCPCS: 36415; 80053; 80061; 83036; 83605; 83880; 85025; 87040 ×2; 93971 ×2; 96365; 96375; 99285; J0696; J2270; J2405; 36430; 80048; 80074; 80202; 82607; 82746; 82962; 83735; 84100; 84439; 84443; 84480; 85049; 85379; 85384; 85610; 85730; 86900; 86901; 87389; 88104; 93005; 93306; 97161-GP; 99284; A9270-GY; J1200; J1650; J1815-GY ×2; J1940; J3370; J7030; J7040; J8540; P9034